=== PATIENT | male | born 1930 | race African-American/Black ===

== ENCOUNTER 2017-03-03 15:52 | Inpatient (IN) | payer MEDICARE, OTHER ==
[~2017-03-03] VITALS: Ht 170.2 cm; Wt 170.0 kg
[~2017-03-03 15:52] MED LIST: ATOR10TA23 PO; CENTSILV; OMEG1CAP97; [UNRECOGNIZED DRUG - OTHER]
[2017-03-03] MEDS ORDERED: TRAM-40 PO (22:54)
[2017-03-03] MEDS ORDERED: AMLO5TAB4 PO (22:58)
[2017-03-03 23:15] LABS: ANION GAP 9 (8-16); BLOOD UREA NITROGEN 12 mg/dl (7-20); CALCIUM 9.7 mg/dl (8.4-10.2); CARBON DIOXIDE 34 mmol/L (21-31); CHLORIDE 106 mmol/L (97-110); CREATININE 1.06 mg/dl (0.61-1.24); GLUCOSE 92 mg/dl (70-220); POTASSIUM 4.5 mmol/L (3.5-5.1); SODIUM 144 mmol/L (135-144); TROPONIN-I < 0.012 ng/ml (0.00-0.12)
[2017-03-03 23:42] LABS: INR 0.98; PARTIAL THROMBOPLASTIN TIME 27.9 Sec (25.0-35.0)
[2017-03-03 23:49] LABS: BASOPHILS % 0.3 % (0.0-2.0); EOSINOPHILS # 0.4 10^3/ul (0.0-0.5); EOSINOPHILS % 5.5 % (0.0-7.0); HEMATOCRIT 42.5 % (42.0-52.0); HEMOGLOBIN 14.2 g/dl (14.0-18.0); LYMPHOCYTES # 1.7 10^3/ul (0.8-2.9); LYMPHOCYTES % 27.1 % (15.0-51.0); MEAN CORPUSCULAR HEMOGLOBIN 31.6 pg (29.0-33.0); MEAN CORPUSCULAR HGB CONC 33.4 g/dl (32.0-37.0); MEAN CORPUSCULAR VOLUME 94.4 fl (82.0-101.0); MEAN PLATELET VOLUME 8.7 fl (7.4-10.4); MONOCYTE # 0.6 10^3/ul (0.3-0.9); MONOCYTES % 9.2 % (0.0-11.0); NEUTROPHIL # 3.6 10^3/ul (1.6-7.5); NEUTROPHILS % 57.6 % (39.0-77.0); PLATELET COUNT 239 10^3/UL (140-415); RED CELL DISTRIBUTION WIDTH 13.9 % (11.5-14.5); WHITE BLOOD COUNT 6.3 10^3/ul (4.8-10.8)
[2017-03-04] VITALS (12 sets, daily range): BP systolic 137–165; BP diastolic 60–74; PULSE 58–69; RESP 18–20; TEMP 98.2; Ht 170.2 cm; Wt 170.0 kg
--- NOTE | 2017-03-04 01:02 | ERD ---
ER Documentation Chief Complaint Chief Complaint LT SHOULDER PAIN , FALL FEW DAYS AGO HPI This is an 86-year-old male with left shoulder pain status post fall 3 days ago. Patient is having weakness in his left arm now. Also complains of difficulty ambulating. No nausea no vomiting no chills. No dysarthria. Does not remember whether or not he hit his head. No other current complaints. ROS All systems reviewed and are negative except as per history of present illness. Medications Home Meds Reported Medications Amlodipine Besylate* (Norvasc*) 5 Mg Tablet, 5 MG PO DAILY for HTN, TAB 03/03/17 Tramadol Hcl* (Ultram*) 50 Mg Tablet, 50 MG PO Q6H Y for PAIN, TAB 03/03/17 Fish Oil/Fortuna-3 Fatty Acids (Fish Oil 1,000 Mg Capsule) 1 Cap Capsule 11/04/10 Multivitamins/Minerals (Centrum Silver) 1 Tab Tab 11/04/10 Atorvastatin (Lipitor) 10 Mg Tablet, 10 MG PO QHS 11/03/10 Discontinued Reported Medications [Bp Med Unkn] No Conflict Check 11/03/10 Allergies Allergies: Coded Allergies: No Known Allergy (Verified , 05/11/15) PMhx/Soc History of Surgery: Yes (BACK SURGERY 20 YEARS AGO) Anesthesia Reaction: No Hx Neurological Disorder: No Hx Respiratory Disorders: No Hx Cardiac Disorders: Yes (HYPERTENSION , HIGH CHOLESTEROL) Hx Psychiatric Problems: No Hx Miscellaneous Medical Probl: Yes (prostate cancer w/prostatectomy) Hx Alcohol Use: No Hx Substance Use: No Hx Tobacco Use: No Physical Exam Vitals Vital Signs Date Time Temp Pulse Resp B/P Pulse Ox O2 Delivery O2 Flow Rate FiO2 03/03/17 15:54 98.7 72 18 135/62 98 Physical Exam Const: [] Head: Atraumatic Eyes: Normal Conjunctiva ENT: Normal External Ears, Nose and Mouth. Neck: Full range of motion..~ No meningismus. Resp: Clear to auscultation bilaterally Cardio: Regular rate and rhythm, no murmurs Abd: Soft, non tender, non distended. Normal bowel sounds Skin: No petechiae or rashes Back: No midline or flank tenderness Ext: No cyanosis, or edema Neur: Awake and alert Psych: Normal Mood and Affect Result Diagram: 03/03/17202903/03/172029 Results 24 hrs Laboratory Tests Test 03/03/17 20:30 White Blood Count 6.310^3/ul Red Blood Count 4.5010^6/ul Hemoglobin 14.2g/dl Hematocrit 42.5% Mean Corpuscular Volume 94.4fl Mean Corpuscular Hemoglobin 31.6pg Mean Corpuscular Hemoglobin Concent 33.4g/dl Red Cell Distribution Width 13.9% Platelet Count 56435^3/UL Mean Platelet Volume 8.7fl Neutrophils % 57.6% Lymphocytes % 27.1% Monocytes % 9.2% Eosinophils % 5.5% Basophils % 0.3% Nucleated Red Blood Cells % 0.0/100WBC Neutrophils # 3.610^3/ul Lymphocytes # 1.710^3/ul Monocytes # 0.610^3/ul Eosinophils # 0.410^3/ul Basophils # 0.010^3/ul Nucleated Red Blood Cells # 0.010^3/ul Prothrombin Time 13.0Sec Prothrombin Time Ratio 1.0 INR International Normalized Ratio 0.98 Activated Partial Thromboplast Time 27.9Sec Sodium Level 144mmol/L Potassium Level 4.5mmol/L Chloride Level 106mmol/L Carbon Dioxide Level 34mmol/L Anion Gap 9 Blood Urea Nitrogen 12mg/dl Creatinine 1.06mg/dl Glucose Level 92mg/dl Calcium Level 9.7mg/dl Troponin I < 0.012ng/ml Procedures/[facility] EKG: Rate/Rhythm: [Normal Sinus Rhythm] QRS, ST, T-waves: [No changes consistent w/ acute ischemia] Impression: [No evidence of ischemia or arrhythmia] Chest X-ray 1V Interpreted by me: Soft Tissue: No acute abnormalities Bones: No acute abnormalities Mediastinum/Cardiac Silhouette/Lungs: [No acute abnormalities] X-ray Shoulder 3V Interpreted by me: Bones: [No fracture] Joints: [No dislocation] Foreign body: [None] Medical decision-makin-year-old male with upper extremity weakness. This could be related to fall, however given the patient's generalized weakness associated in the same timeframe a subacute CVA cannot be completely ruled out at this time. Patient will be admitted for further evaluation and management to hospitalist. Departure Diagnosis: Primary Impression: Shoulder pain Chronicity: acute Laterality: unspecified laterality Qualified Code: M25.519 - Acute shoulder pain, unspecified laterality Additional Impression: Weakness Condition: Serious MOGHADAM,NAVNEET S. Mar 04, 2017 01:02
[2017-03-04] MEDS ORDERED: morphine 2 MG INJ IV PRN (03:30)
--- NOTE | 2017-03-04 07:39 | RADRPT ---
PROCEDURE: CT brain without contrast CLINICAL INDICATION: Injury. Weakness TECHNIQUE: A CT of the brain was performed utilizing axial sections from the skull base through the vertex without contrast. Sagittal and coronal images were also reformatted. One or more of the [facility] dose reduction techniques were used: Automated exposure control, adjustment of the mA and/or kV according to patient size, use of iterative reconstruction technique. The exam CTDIvol = 44.46 mGy and DLP = 720.23 mGy-cm. COMPARISON: None available FINDINGS: No acute intracranial hemorrhage is identified. There is no mass effect or midline shift. No extra-a xial fluid collection is seen. The ventricles and sulci are normal in size and configuration for the patient's provided age of 86 years consistent with advanced generalized atrophy. Low attenuation of the subcortical and periventricular white matter is nonspecific but likely chronic small vessel isc hemic sequela. Garcia-white differentiation is preserved with no findings to suggest an acute ischemic infarct. The fourth ventricle is midline and there is no density alteration within the maria d or cerebellum. The osseous structures are demineralized but otherwise unremarkable. The mastoid air cells and visua lized paranasal sinuses are clear. 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 Physician Silvio Date Time Electronically viewed and signed by Physician Silvio on 03/03/2017 22:10 /
--- NOTE | 2017-03-04 07:48 | RADRPT ---
AMENDMENT: 03/03/2017 10:18:02 PM Chau Saenz D.o Please disregard the below report mistakenly issued as the CT of the brain. PROCEDURE: CT cervical spine without contrast. CLINICAL INDICATION: Injury. Post traumatic neck pain TECHNIQUE: CT of the cervical spine without contrast was performed. Axial images were obtained th rough the cervical spine and reformatted at 2.0 mm slice thickness. Coronal and sagittal images were reformatted. One or more of the following dose reduction techniques were used: Automated exposure control, adjustment of the mA and/or kV according to patient size, use of iterative reconstruction t echnique. Exam CTDIvol = 22.14 mGy and DLP = 434.30 mGy-cm. COMPARISON: None available. FINDINGS: Vertebral bodies: Diffuse decreased mineralization cannot exclude osteopenia or osteoporosis. The lo rdosis is straightened. Narrowing of the predental space is present. 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 Rheumatoid arthritis is a differential diagnostic possibility. The C1 ring is intact . There is no evidence of vertebral body fracture. Central canal and cervical spinal cord: No abnormal density within the spinal cord is evident and no intraspinal masses are delineated. C2-3: Mild degenerative disc and with a small posterior osteophyte and disc complex. Severe right f acet arthropathy is present the left facet joint is normal. There is no evidence of posterior elemen t fracture. Uncovertebral hypertrophy contributes to moderate to severe right foraminal stenosis. Th e left foramen is patent. C3-4: Preservation of disc stature with a small posterior disc bulge but no evidence of central sonia nosis. Severe right facet arthropathy is present the left facet joint is normal. Uncovertebral hype rtrophy contributes to severe right foraminal stenosis. The left foramen is patent. There is no evid ence of posterior element fracture. C4-5: Mild degenerative disc narrowing with a posterior osteophyte and disc complex of approximatel y 5 mm causing mild central stenosis. Severe right and moderate left facet arthropathy is present. There is no evidence of posterior element fracture. Uncovertebral hypertrophy. Contribute to severe right and moderate left foraminal stenosis. C5-6: Severe degenerative disc narrowing to a posterior osteophyte and disc complex causing a most mild central canal stenosis. Severe right and moderate left facet arthropathy is present. There is no posterior element fracture. Calcification of the ligamentum flava are present. Uncovertebral appe ar to be causes severe right and moderate left foraminal stenosis. C6-7: Severe degenerative disc and a small osteophyte and disc complex causing no more than mild c entral canal stenosis. Mild bilateral facet arthropathy is present. There is no evidence of posteri or element fracture. Uncovertebral hypertrophy causes severe bilateral foraminal stenosis. C7-T1: The disk is within normal limits. Moderate to severe bilateral facet arthropathy is present. There is no evidence of posterior element fracture. The uncovertebral joints and foramina are unrem arkable. Non spine related findings: A thyroid goiter is present the right thyroid lobe larger than the left. Atherosclerotic calcification is present in the carotid bifurcations RPTAT:HJJR IMPRESSION: 1. No evidence of cervical spine fracture or subluxation. 2. Lordotic straightening possibly positioning but unable to exclude muscle spasm. 3. 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 4. Degenerative disc disease with osteophyte and disc complexes greatest at the C5-6 and C6-7 contr ibuting to mild central canal stenosis. 5. Multilevel facet arthropathy greatest on the right at C2-3 and C3-4 with uncovertebral hypertrop hy causing multilevel foraminal stenosis greatest at C5-6. 6. Thyroid goiter the right lobe larger than the left. 7. Atherosclerotic calcification of the carotid bifurcations. PROCEDURE: CT brain without contrast CLINICAL INDICATION: Injury. Weakness TECHNIQUE: A CT of the brain was performed utilizing axial sections from the skull base through th e vertex without contrast. Sagittal and coronal images were also reformatted. One or more of the fol lowing dose reduction techniques were used: Automated exposure control, adjustment of the mA and/or kV according to patient size, use of iterative reconstruction technique. The exam CTDIvol = 44.46 mGy and DLP = 720.23 mGy-cm. COMPARISON: None available FINDINGS: No acute intracranial hemorrhage is identified. There is no mass effect or midline shift. No extra -axial fluid collection is seen. The ventricles and sulci are normal in size and configuration for the patient's provided age of 86 years consistent with advanced generalized atrophy. Low attenuatio n of the subcortical and periventricular white matter is nonspecific but likely chronic small vessel ischemic sequela. Garcia-white differentiation is preserved with no findings to suggest an acute isc hemic infarct. The fourth ventricle is midline and there is no density alteration within the maria d or cerebellum. The osseous structures are demineralized but otherwise unremarkable. The mastoid air cells and visu alized paranasal sinuses are clear. 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 Physician Silvio Date Time Electronically viewed and signed by Miles Saenz Physician on 03/03/2017 22:18 /
--- NOTE | 2017-03-04 07:49 | RADRPT ---
PROCEDURE: XR left shoulder. CLINICAL INDICATION: Post traumatic left shoulder pain TECHNIQUE: Two views of the left shoulder were performed. COMPARISON: Left humerus x-ray 03/03/2017 FINDINGS: There is normal mineralization and alignment. No fracture or osseous lesion is identified. Osteoarth rosis is present the acromioclavicular and glenohumeral joints with the degenerative irregularity of the superolateral humeral head The soft tissues are unremarkable. RPTAT:HJJR IMPRESSION: Osteoarthrosis without evidence of fracture dislocation involving the left shoulder. The scapula alex ears intact.. Physician Silvio Date Time Electronically viewed and signed by Physician Silvio on 03/03/2017 22:19 /
--- NOTE | 2017-03-04 07:51 | RADRPT ---
PROCEDURE: XR Right Shoulder. CLINICAL INDICATION: Right shoulder pain. TECHNIQUE: Three views. Frontal internal rotation, frontal external rotation, and scapular Y-view . COMPARISON: No prior study is available for comparison. FINDINGS: There is no fracture or dislocation. The soft tissues are normal. Articular surfaces are intact. There is no lytic or blastic lesion. There is no radiopaque foreign body. IMPRESSION: 1. Normal images of the right shoulder. RPTAT: QQ .Ezekiel Garland MD, MD Date Time Electronically viewed and signed by .Ezekiel Garland MD, MD on 03/04/2017 07:51 .R/
--- NOTE | 2017-03-04 07:51 | RADRPT ---
PROCEDURE: XR Chest. CLINICAL INDICATION: Chest pain. Left shoulder injury. Weakness TECHNIQUE: Portable AP semi - erect view of the chest was obtained. COMPARISON: None. FINDINGS: The cardiomediastinal silhouette is within upper normal limits. The lungs are clear. There is no e vidence for pleural effusion, pneumothorax or pulmonary vascular congestion. Degenerative spondylos is of the thoracic spine is noted. There is no evidence of acute osseous abnormality. RPTAT:HJJR IMPRESSION: No evidence for acute intrathoracic pathology. Physician Silvio Date Time Electronically viewed and signed by Physician Silvio on 03/03/2017 22:20 /
--- NOTE | 2017-03-04 07:51 | RADRPT ---
PROCEDURE: Left humerus x-ray CLINICAL INDICATION: Post traumatic left arm pain TECHNIQUE: AP and lateral views of the left humerus were obtained. COMPARISON: None FINDINGS: There is normal mineralization. No acute fracture or dislocation is seen. There is no significant soft tissue swelling. Mild degenerative change of the liver is present. The elbow joint is normally aligned. No radiopaque foreign body is evident. RPTAT:HJJR IMPRESSION: No acute abnormality of the left humerus. Physician Silvio Date Time Electronically viewed and signed by Physician Silvio on 03/03/2017 22:13 JR/
--- NOTE | 2017-03-04 07:56 | HP ---
Date/Time of Note Date/Time of Note DATE: 03/04/17 TIME: 07:44 Assessment/Plan VTE Prophylaxis VTE Prophylaxis Intervention: heparin Assessment/Plan Assessment/Plan ASSESSMENT 86-year-old male with a history of hypertension, dyslipidemia, arthritis, prostatectomy 20 years ago for elevated PSA, left foot drop, chronic back pain, back surgery who presented to the ER complaining of left shoulder pain and limited range of motion status post ground-level fall. PLAN Will obtain x-ray of his shoulder Pain management Physical therapy Ortho consult will be considered As far as left foot drop and his chronic back pain is concerned, he has an appointment with his orthopedic surgeon in less than 2 weeks for possible surgical intervention HPI/ROS Admit Date/Time Admit Date/Time Mar 04, 2017 at 00:44 Hx of Present Illness This is an 86-year-old male with a history of hypertension, dyslipidemia, arthritis, prostatectomy 20 years ago for elevated PSA, chronic back pain, back surgery who presented to the ER complaining of left shoulder pain. He said that he fell down 2 days ago and since then has been having progressively worsening left shoulder pain and decreased range of motion. Patient normally uses a walker as well as wheelchair. He said he was attempting to see when the chair moved resulting in him falling backwards landing on the left side/left shoulder. He denied hitting his head or loss of consciousness. He also denied chest pain, lightheadedness, palpitation prior to or after the fall. Patient states that he has a history of arthritis and "a torn something" of right shoulder resulting in limited range of motion. 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 He also stated 3 months ago he noticed left foot drop for which he said he was told he would need a back surgery. He has an appointment for this in about 3 weeks. PMH/Family/Social Social History Smoking Status: Never smoker Exam/Review of Systems Vital Signs Vitals Vital Signs Date Time Temp Pulse Resp B/P Pulse Ox O2 Delivery O2 Flow Rate FiO2 03/04/17 04:38 68 03/04/17 04:20 98.0 18 157/72 95 03/04/17 02:51 Room Air Intake and Output 03/03/17 03/03/17 03/04/17 14:59 22:59 06:59 Intake Total 0 ml Output Total 200 ml Balance -200 ml Exam Constitutional: alert, oriented Head: atraumatic, normocephalic Eyes: EOMI, PERRL Respiratory: clear to auscultation, normal air movement Cardiovascular: nl pulses, regular rate and rhythm Gastrointestinal: non-tender, soft Extremities: other (There is tenderness and significant range of motion limitation of left shoulder. There is also range of motion limitation of the right shoulder as well. No obvious deformity of both shoulders) Labs Result Diagram: 03/03/17202903/03/172029 Medications Medications Current Medications Amlodipine Besylate (Norvasc) 5 mg DAILY PO ; Start 03/04/17 at 09:00 Atorvastatin Calcium (Lipitor) 10 mg HS PO ; Start 03/04/17 at 21:00 Fish Oil (Fish Oil) 1,000 mg BID PO ; Start 03/04/17 at 09:00 Multivitamins Therapeutic (Theragran) 1 tab DAILY PO ; Start 03/04/17 at 09:00 Tramadol HCl (Ultram) 50 mg Q6H PRN PO PAIN LEVEL 1-5; Start 03/04/17 at 03:30 Morphine Sulfate (morphine) 2 mg Q4H PRN IV PAIN LEVEL 6-10; Start 03/04/17 at 03:30 Heparin Sodium (Porcine) (Heparin (5000 Units/0.5 ml)) 5,000 unit ONCE ONCE SC ; Start 03/04/17 at 09:00; Stop 03/04/17 at 09:01 Aspirin (Halfprin) 81 mg DAILY PO ; Start 03/04/17 at 09:00 NAVNEET MULLINS MD Mar 04, 2017 07:54
--- NOTE | 2017-03-04 08:25 | RADRPT ---
PROCEDURE: XR Left Shoulder. CLINICAL INDICATION: Left shoulder pain. TECHNIQUE: Three views. Frontal internal rotation, frontal external rotation, and scapular Y-view . COMPARISON: No prior study is available for comparison. FINDINGS: There is no fracture or dislocation. The soft tissues are normal. Articular surfaces are intact. There is no lytic or blastic lesion. There is no radiopaque foreign body. IMPRESSION: 1. Normal images of the left shoulder. RPTAT: QQ .Ezekiel Garland MD, MD Date Time Electronically viewed and signed by .Ezekiel Garland MD, MD on 03/04/2017 07:50 .R/
--- NOTE | 2017-03-04 08:33 | RADRPT ---
PROCEDURE: US Carotids. CLINICAL INDICATION: bruit , left sided weakness TECHNIQUE: Multiple sonographic of the carotid bifurcation region and vertebral arteries were obta ined utilizing kramer scale, duplex and color-flow imaging. The images were reviewed on a PACS worksta tion. COMPARISON: No prior studies are available for comparison. FINDINGS: Evaluation of the right carotid bifurcation region reveals mild calcific atherosclerotic disease. Evaluation of the left carotid bifurcation region reveals mild calcific atherosclerotic disease. There is antegrade flow within the vertebral arteries bilaterally. RIGHT CAROTID MEASUREMENTS: Common Carotid Kmeuru22.5 (cm/sec) Internal Carotid Artery - [id number] (cm/sec) Internal Carotid Artery - mid47.9 (cm/sec) Internal Carotid Artery - .8 (cm/sec) Internal Carotid/Common Carotid1.64 LEFT CAROTID MEASUREMENTS: Common Carotid Lvfhzc93 (cm/sec) Internal Carotid Artery - lsywiafi72.1 (cm/sec) Internal Carotid Artery - mid32.4 (cm/sec) Internal Carotid Artery - mvipdn43.5 (cm/sec) Internal Carotid/Common Carotid0.6 RPTAT: AA IMPRESSION: No evidence for hemodynamically significant stenosis in the bilateral internal carotid arteries - va lidated velocity measurements with angiographic measurements, velocity criteria are extrapolated fro m diameter data as defined by the Society of Radiologists in Ultrasound Consensus Conference Radiolo gy 2003; 229;340-346. This study does indirectly reference the measurement of the distal ICA diamet er as the denominator for stenosis measurement. Normal antegrade flow in the vertebral arteries bilaterally. .Troy Garzon MD, MD Date Time Electronically viewed and signed by .Troy Garzon MD, on 03/04/2017 08:33 .S/
[2017-03-04 08:52] LABS: BASOPHIL # 0.1 10^3/ul (0.0-0.1); BASOPHILS % 0.9 % (0.0-2.0); EOSINOPHILS # 0.3 10^3/ul (0.0-0.5); EOSINOPHILS % 6.1 % (0.0-7.0); HEMATOCRIT 41.3 % (42.0-52.0); HEMOGLOBIN 13.7 g/dl (14.0-18.0); LYMPHOCYTES # 1.2 10^3/ul (0.8-2.9); MEAN CORPUSCULAR HGB CONC 33.2 g/dl (32.0-37.0); MEAN CORPUSCULAR VOLUME 93.4 fl (82.0-101.0); MEAN PLATELET VOLUME 8.7 fl (7.4-10.4); MONOCYTE # 0.5 10^3/ul (0.3-0.9); NEUTROPHIL # 3.6 10^3/ul (1.6-7.5); NEUTROPHILS % 63.8 % (39.0-77.0); PLATELET COUNT 223 10^3/UL (140-415); RED BLOOD COUNT 4.42 10^6/ul (4.70-6.10); RED CELL DISTRIBUTION WIDTH 13.8 % (11.5-14.5); WHITE BLOOD COUNT 5.6 10^3/ul (4.8-10.8)
[2017-03-04] MEDS: FISH OIL 1,000 MG CAP PO SCH ×2 (08:54→20:57)
[2017-03-04] MEDS: AMLODIPINE 5 MG TAB PO SCH (08:54)
[2017-03-04] MEDS: MULTIVITAMINS THERAPEUTIC TAB PO SCH (08:54)
[2017-03-04] MEDS: ASPIRIN (EC) 81 MG TAB PO SCH (08:54)
[2017-03-04] MEDS ORDERED: HEPARIN 5,000 UNIT/0.5 ML VIAL SC ONE (09:00)
[2017-03-04 09:20] LABS: ALBUMIN/GLOBULIN RATIO 1.25; CHOL/HDL RATIO 4.1 RATIO; POTASSIUM 3.6 mmol/L (3.5-5.1)
[2017-03-04 09:21] LABS: ALBUMIN 3.4 g/dl (3.3-4.9); BILIRUBIN,INDIRECT 0.7 mg/dl (0-1.1); BILIRUBIN,TOTAL 0.7 mg/dl (0.2-1.3); CREATININE 0.96 mg/dl (0.61-1.24); MAGNESIUM 1.9 mg/dl (1.7-2.5); PHOSPHORUS 3.9 mg/dl (2.5-4.9); TOTAL PROTEIN 6.1 g/dl (6.1-8.1)
--- NOTE | 2017-03-04 10:13 | PN ---
Date/Time of Note Date/Time of Note DATE: 03/04/17 TIME: 10:05 Assessment/Plan VTE Prophylaxis VTE Prophylaxis Intervention: anti-embolic stocking Lines/Catheters IV Catheter Type (from Nrsg): Saline Lock Subjective 24 Hr Interval Summary Free Text/Dictation 86 yr old man very well known to me admitted for pain and dpoor rom left shoulder after fall two days ago. no fracture seen. no evidence of carotid disease, no acute presales senior specialist disease. cxr normal , labs ok other problems lumbar disc disease with radiculopathy and left foot drop, for lumbar surgery later this month by dr milligan hx of hbp, elevated lipids, all under control with meds remote hx ca prostate treated with rt, now with chemical recurrence without evidence of mets has been working dfup until foot drop and ambulatory issues this past month on exam, alert, fluent, oriented times three exam unremarkable except for pain and poor rom left shoulder, some similar issues on the right, though less so left foot drop moves all four imp fall, and fall risk...son has taken leave from work to help out, but pt walker or wc dependent with foot drop and unsteadyness now with painful frozen shoulder left more than right following fall on the left plan for pt and dot lets get a ct of the left shoulder notifyu ortho of admit Musculoskeletal: restricted range of motion Neurologic: other (left foot drop) Exam/Review of Systems Vital Signs Vitals Vital Signs Date Time Temp Pulse Resp B/P Pulse Ox O2 Delivery O2 Flow Rate FiO2 03/04/17 08:17 58 03/04/17 07:44 98.0 18 147/71 96 03/04/17 02:51 Room Air Intake and Output 03/03/17 03/03/17 03/04/17 15:00 23:00 07:00 Intake Total 0 ml Output Total 200 ml Balance -200 ml Results Result Diagram: 03/04/17 0830 03/04/17 0828 Results 24 hrs Laboratory Tests Test 03/03/17 20:30 03/04/17 08:28 03/04/17 08:30 White Blood Count 6.3 5.6 Red Blood Count 4.50 L 4.42 L Hemoglobin 14.2 13.7 L Hematocrit 42.5 41.3 L Mean Corpuscular Volume 94.4 93.4 Mean Corpuscular Hemoglobin 31.6 31.0 Mean Corpuscular Hemoglobin Concent 33.4 33.2 Red Cell Distribution Width 13.9 13.8 Platelet Count 239 223 Mean Platelet Volume 8.7 8.7 Neutrophils % 57.6 63.8 Lymphocytes % 27.1 21.0 Monocytes % 9.2 8.0 Eosinophils % 5.5 6.1 Basophils % 0.3 0.9 Nucleated Red Blood Cells % 0.0 0.0 Neutrophils # 3.6 3.6 Lymphocytes # 1.7 1.2 Monocytes # 0.6 0.5 Eosinophils # 0.4 0.3 Basophils # 0.0 0.1 Nucleated Red Blood Cells # 0.0 0.0 Prothrombin Time 13.0 Prothrombin Time Ratio 1.0 INR International Normalized Ratio 0.98 Activated Partial Thromboplast Time 27.9 Sodium Level 144 141 Potassium Level 4.5 3.6 Chloride Level 106 105 Carbon Dioxide Level 34 H 29 Anion Gap 9 11 Blood Urea Nitrogen 12 10 Creatinine 1.06 0.96 Glucose Level 92 83 Calcium Level 9.7 9.0 Troponin I < 0.012 0.012 Hemoglobin A1c 5.4 Phosphorus Level 3.9 Magnesium Level 1.9 Total Bilirubin 0.7 Direct Bilirubin 0.00 Indirect Bilirubin 0.7 Aspartate Amino Transf (AST/SGOT) 26 Alanine Aminotransferase (ALT/SGPT) 32 Alkaline Phosphatase 74 Total Protein 6.1 Albumin 3.4 Globulin 2.70 Albumin/Globulin Ratio 1.25 Triglycerides Level 60 Cholesterol Level 229 H LDL Cholesterol, Calculated 162 HDL Cholesterol 55 Cholesterol/HDL Ratio 4.1 Medications Medications Current Medications Amlodipine Besylate (Norvasc) 5 mg DAILY PO Last administered on 03/04/17 08: 54; Admin Dose 5 MG; Start 03/04/17 at 09:00 Atorvastatin Calcium (Lipitor) 10 mg HS PO ; Start 03/04/17 at 21:00 Fish Oil (Fish Oil) 1,000 mg BID PO Last administered on 03/04/17 08:54; Admin Dose 1,000 MG; Start 03/04/17 at 09:00 Multivitamins Therapeutic (Theragran) 1 tab DAILY PO Last administered on 08:54; Admin Dose 1 TAB; Start 03/04/17 at 09:00 Tramadol HCl (Ultram) 50 mg Q6H PRN PO PAIN LEVEL 1-5; Start 03/04/17 at 03:30 Morphine Sulfate (morphine) 2 mg Q4H PRN IV PAIN LEVEL 6-10; Start 03/04/17 at 03:30 Aspirin (Halfprin) 81 mg DAILY PO Last administered on 03/04/17t 08:54; Admin Dose 81 MG; Start 03/04/17 at 09:00 EVERTON MCARTHUR MD Mar 04, 2017 10:13
[2017-03-04] MEDS ORDERED: ACETAMINOPHEN 325 MG TAB PO PRN (10:30)
--- NOTE | 2017-03-04 12:30 | CONS ---
DATE OF ADMISSION: 03/04/2017 DATE OF CONSULTATION: 03/04/2017 REQUESTING PHYSICIAN: Alexey Hays MD. TYPE OF CONSULTATION: Orthopedic. CHIEF COMPLAINT: The patient is seen in consultation at the request of Dr. Hays for evaluation and advice regarding left shoulder pain with history of back issues. HISTORY OF PRESENT INJURY: This is an 86-year-old gentleman who appeared to have mechanical fall a couple days ago. He has significant medical history as outlined below. He is reporting significant weakness in the left shoulder. He does have a foot drop, which was present prior to the fall. I w as asked to evaluate him due to the discomfort. He has inability to abduct his left shoulder. PAST MEDICAL HISTORY: Arthritis, high cholesterol, back trouble, possible history of prostate cance r. MEDICATIONS: 1. Amlodipine. 2. Atorvastatin. 3. Fish oil. 4. Vitamins. 5. Morphine. 6. Heparin. 7. Aspirin. ALLERGIES: NONE. PAST SURGICAL HISTORY: Lumbar decompression. SOCIAL HISTORY: The patient is retired, , nonsmoker. He moderately drinks. He lives alone. PHYSICAL EXAMINATION: GENERAL: A pleasant, elderly appearing gentleman standing 5 feet 7 inches tall, weighing 170 pounds . He is alert and oriented. HEENT: Extraocular movements are intact. Pupils are equal. LUNGS: He has no respiratory insufficiency. BACK: There are skin lesions seen on the left shoulder. He has a known left-sided foot drop with 0 /5 strength in the tibialis anterior and EHL. MUSCULOSKELETAL: He is unable to abduct the left shoulder but his biceps and triceps appear to be i ntact. IMAGING STUDIES: I reviewed x-rays of the left and the right shoulder as well as the neck. The lef t shoulder shows lytic changes. There could be a greater tuberosity fracture versus a rotator cuff tear. DIAGNOSES: 1. Lumbar spinal stenosis. 2. Chronic left foot drop. 3. Rule out left shoulder fracture versus rotator cuff tear. PLAN: This is an 86-year-old gentleman who presented to the emergency room after mechanical fall. He complained of left shoulder discomfort and inability to abduct his left shoulder. I am concerned he either fractured the greater tuberosity or had a traumatic rotator cuff rupture. I have recomme nded he undergo an MRI of the left shoulder and if positive, he will need to see a shoulder speciali st. If the MRI is negative, then this could be a traction injury from the neck and he would need an MRI of the cervical spine, but currently, the patient does report much in the way of neck pain. He has had imaging studies of the neck which included a cervical CT scan which showed no significant a cute abnormalities other than disk degeneration. There may be mild to moderate stenosis as well. I will review the MRI and speak with Dr. Hays once it is done. With regards to the lumbar spine, he was planning to undergo surgery with the undersigned, but we may need to wait for his shoulder to h eal prior to proceeding with spinal surgery. The patient understands the discussion today and he was seen with his son and all questions were ans wered. Dictated By: TIFFANY CHAUHAN/HI Conf#: [id number] DID#: [id number]
[2017-03-04] MEDS: ATORVASTATIN 10 MG TAB PO SCH (20:57)
[2017-03-05 02:31] VITALS: BP 140/62; RESP 18
[2017-03-05 07:30] VITALS: BP 143/67; RESP 18
[2017-03-05] MEDS: ASPIRIN (EC) 81 MG TAB PO SCH (09:01)
[2017-03-05] MEDS: FISH OIL 1,000 MG CAP PO SCH ×2 (09:01→21:01)
[2017-03-05] MEDS: MULTIVITAMINS THERAPEUTIC TAB PO SCH (09:01)
[2017-03-05] MEDS: AMLODIPINE 5 MG TAB PO SCH (09:01)
--- NOTE | 2017-03-05 09:32 | RADRPT ---
PROCEDURE: CT left shoulder without contrast. CLINICAL INDICATION: Fall with pain and poor loss range of motion. TECHNIQUE: CT scan of the left shoulder was performed on a multi -slice scanner. No IV contrast w as administered. Coronal and sagittal reformatted images were obtained from the axial source image s. The total exam DLP equals 666 mGy-cm. The CDTI volume was 36 mGy. Images were reviewed on a high- resolution PACS workstation. One or more of the following dose reduction techniques were used: Automated exposure control Adjustment of the mA and/or kV according to patient size. Use of iterative reconstruction technique. COMPARISON: Same day radiographs and radiographs from 03/03/2017 FINDINGS: There is no acute fracture or dislocation. There is mild joint space narrowing of the glenohumeral joint with osseous spurring. A small to mode rate joint effusion is present. There is also fluid within the superior subscapularis recess. There is a small focus of gas along the anterior inferior glenoid. There is osseous spurring along the lesser and greater tuberosities of the humeral head. There is moderate joint space narrowing of the acromioclavicular joint with osseous spurring. There is a type 2 acromion with slight lateral downsloping. There is mild fatty atrophy of the supraspinatus and infraspinatus muscles. Remaining muscles around the shoulder are unremarkable. The visualized left upper ribs are intact. There is mild bibasilar atelectasis. Atherosclerotic calcifications are visualized within the coronary arteries. RPTAT: ZZ IMPRESSION: 1. No acute fracture. 2. Moderate osteoarthrosis of the acromioclavicular joint. 3. Mild to moderate osteoarthrosis of the glenohumeral joint. 4. Mild fatty atrophy of the supraspinatus and infraspinatus muscles. This can be seen with rotator cuff tendinopathy/rotator cuff tear in which a follow-up MRI may be obtained for additional evaluati on. .Lata Jc MD, Date Time Electronically viewed and signed by .Lata Jc MD, on 03/05/2017 09:31 .T/
--- NOTE | 2017-03-05 10:02 | RADRPT ---
PROCEDURE: MRI OF THE LEFT SHOULDER CLINICAL INDICATION: Fall. Evaluate for fracture versus rotator cuff tear. Left shoulder. TECHNIQUE: Multiple MR pulse sequences in multiple planes were obtained. Images were interpreted o n a high resolution PACS system. COMPARISON: CT EXTREMITY 03/04/2017 FINDINGS: Osseous acromion outlet: The acromion is type 2. Coronal images demonstrate mild lateral downsloping . Moderate AC joint arthrosis.. Rotator Cuff: There is a full-thickness, near full width tear of the supraspinatus tendon with retra ction to the glenoid margin and a full-thickness, near full width tear of the infraspinatus tendon. Some of the anterior supraspinatus fibers are still attached and some of the posterior infraspinatus fibers are attached as well. There is partial thickness tearing at the upper subscapularis footprin t. Mild to mild fatty atrophy seen at the supraspinatus and infraspinatus muscle bellies. There is i ntense edema at the infraspinatus and supraspinatus muscle bellies representing either a recent tear or acute on chronic tear. Labral and capsular structures: There is no bony Bankart lesion. There is fraying and degeneration o f the posterior labrum without a fluid-filled tear. There is a capsular sprain without nadeem avulsio n. Biceps tendon and anchor: The long head biceps tendon demonstrates moderate tendinosis slight more p ronounced intra-articularly. The anchor is mildly degenerated, without rupture. Osseous structures: Mild joint space loss and chondral loss seen at the glenohumeral margin with mar ginal osteophyte formation. There is no acute fracture or osteonecrosis. Other findings: There is no amount of edema at the posterior component of the deltoid either from in flammation of the rotator cuff tear or strain. IMPRESSION: 1. Full-thickness, near full width tear of the infraspinatus and supraspinatus tendons with retract ion to the glenoid margins. This likely represents either an acute tear or acute on chronic tear. 2. Marked subacromial/subdeltoid bursitis and inflammation. 3. Mild glenohumeral joint arthrosis. 4. Moderate intrarticular biceps tendinosis versus strain. Low grade intrasubstance tearing cannot be excluded. No full-thickness rupture is seen. 5. No acute fracture. RPTAT: PP .Arun Tomlin MD, MD Date Time Electronically viewed and signed by .Arun Tomlin MD, MD on 03/05/2017 10:02 .d/
[2017-03-05] MEDS: traMADol 50 MG TAB PO PRN (10:34)
--- NOTE | 2017-03-05 11:50 | PN ---
Date/Time of Note Date/Time of Note DATE: 03/05/17 TIME: 11:49 Assessment/Plan Lines/Catheters IV Catheter Type (from Nrs): Peripheral IV Assessment/Plan Assessment/Plan MRI revealed: 1. Full-thickness, near full width tear of the infraspinatus and supraspinatus tendons with retraction to the glenoid margins. This likely represents either an acute tear or acute on chronic tear. 2. Marked subacromial/subdeltoid bursitis and inflammation. 3. Mild glenohumeral joint arthrosis. 4. Moderate intrarticular biceps tendinosis versus strain. Low grade intrasubstance tearing cannot be excluded. No full-thickness rupture is seen. 5. No acute fracture. I recommend that the patient be seen by a shoulder specialist. I will defer to Dr. Hays to request the consult but I would be happy to assist if asked. Subjective 24 Hr Interval Summary left shoulder weakness Exam/Review of Systems Vital Signs Vitals Vital Signs Date Time Temp Pulse Resp B/P Pulse Ox O2 Delivery O2 Flow Rate FiO2 03/05/17 07:30 98.5 71 18 143/67 95 03/04/17 15:26 Room Air Intake and Output 03/04/17 03/04/17 03/05/17 15:00 23:00 07:00 Intake Total 850 ml 500 ml Output Total 200 ml 850 ml Balance 650 ml -350 ml Exam Free Text/Dictation left shoulder weakness Results Result Diagram: 03/04/17 0830 03/04/17 0828 TIFFANY RUIZ MD Mar 05, 2017 11:50
--- NOTE | 2017-03-05 13:05 | PN ---
Date/Time of Note Date/Time of Note DATE: 03/05/17 TIME: 13:02 Assessment/Plan VTE Prophylaxis VTE Prophylaxis Intervention: anti-embolic stocking Lines/Catheters IV Catheter Type (from Nrsg): Peripheral IV Subjective 24 Hr Interval Summary Free Text/Dictation as noted by dr milligan, mri shows comple rotator cuff tear. explained to pt that he will need surgery. i will coordinate with dr tovar to have one of the scoi mds see him and hopefully get the surgery done. discussed with patient and son at bedside to cont with pt as able alert, lungs clear, heart rate ok no change left leg plan ortho consult re shoulder Musculoskeletal: back pain, bone/joint pain, neck pain, no complaints, other, restricted range of motion, swelling Exam/Review of Systems Vital Signs Vitals Vital Signs Date Time Temp Pulse Resp B/P Pulse Ox O2 Delivery O2 Flow Rate FiO2 03/05/17 07:30 98.5 71 18 143/67 95 03/04/17 15:26 Room Air Intake and Output 03/04/17 03/04/17 03/05/17 15:00 23:00 07:00 Intake Total 850 ml 500 ml Output Total 200 ml 850 ml Balance 650 ml -350 ml Results Result Diagram: 03/04/17 0830 03/04/17 0828 Medications Medications Current Medications Amlodipine Besylate (Norvasc) 5 mg DAILY PO Last administered on 03/05/17 09: 01; Admin Dose 5 MG; Start 03/04/17 at 09:00 Atorvastatin Calcium (Lipitor) 10 mg HS PO Last administered on 03/04/17 20:57 ; Admin Dose 10 MG; Start 03/04/17 at 21:00 Fish Oil (Fish Oil) 1,000 mg BID PO Last administered on 03/05/17 09:01; Admin Dose 1,000 MG; Start 03/04/17 at 09:00 Multivitamins Therapeutic (Theragran) 1 tab DAILY PO Last administered on 09:01; Admin Dose 1 TAB; Start 03/04/17 at 09:00 Tramadol HCl (Ultram) 50 mg Q6H PRN PO PAIN LEVEL 1-5 Last administered on 03/05 10:34; Admin Dose 50 MG; Start 03/04/17 at 03:30 Aspirin (Halfprin) 81 mg DAILY PO Last administered on 03/05/17 09:01; Admin Dose 81 MG; Start 03/04/17 at 09:00 Acetaminophen (Tylenol Tab) 325 mg Q6H PRN PO PAIN AND OR ELEVATED TEMP; Start 03/04/17 at 10:30 EVERTON MCARTHUR MD Mar 05, 2017 13:05
[2017-03-05 14:41] VITALS: BP 130/63; RESP 18
[2017-03-05 20:20] VITALS: BP 131/63; RESP 18
[2017-03-05] MEDS: ATORVASTATIN 10 MG TAB PO SCH (21:01)
[2017-03-06 02:05] VITALS: BP 128/66; RESP 18
--- NOTE | 2017-03-06 08:06 | PN ---
Date/Time of Note Date/Time of Note DATE: 03/06/17 TIME: 08:03 Assessment/Plan VTE Prophylaxis VTE Prophylaxis Intervention: anti-embolic stocking Lines/Catheters IV Catheter Type (from Nrsg): Saline Lock Subjective 24 Hr Interval Summary Free Text/Dictation rct, asked dr ansari to see him today. will order ekg for possible preop, all labs stable. arm still sore and difficult for him to get around without assist left foot drop, lumbar disc disease, stable alert, lungs clear, hr dok, no edema, vs ok imp: stable, await decision re left shoulder Musculoskeletal: bone/joint pain, restricted range of motion Exam/Review of Systems Vital Signs Vitals Vital Signs Date Time Temp Pulse Resp B/P Pulse Ox O2 Delivery O2 Flow Rate FiO2 03/06/17 02:05 98.2 72 18 128/66 98 03/04/17 15:26 Room Air Intake and Output 03/05/17 03/05/17 03/06/17 15:00 23:00 07:00 Intake Total 800 ml 420 ml Output Total 600 ml 600 ml Balance 200 ml -180 ml Results Result Diagram: 03/04/17 0830 03/04/17 0828 Medications Medications Current Medications Amlodipine Besylate (Norvasc) 5 mg DAILY PO Last administered on 03/05/17 09: 01; Admin Dose 5 MG; Start 03/04/17 at 09:00 Atorvastatin Calcium (Lipitor) 10 mg HS PO Last administered on 03/05/17 21:01 ; Admin Dose 10 MG; Start 03/04/17 at 21:00 Fish Oil (Fish Oil) 1,000 mg BID PO Last administered on 03/05/17 21:01; Admin Dose 1,000 MG; Start 03/04/17 at 09:00 Multivitamins Therapeutic (Theragran) 1 tab DAILY PO Last administered on 09:01; Admin Dose 1 TAB; Start 03/04/17 at 09:00 Tramadol HCl (Ultram) 50 mg Q6H PRN PO PAIN LEVEL 1-5 Last administered on 03/05 10:34; Admin Dose 50 MG; Start 03/04/17 at 03:30 Aspirin (Halfprin) 81 mg DAILY PO Last administered on 03/05/17 09:01; Admin Dose 81 MG; Start 03/04/17 at 09:00 Acetaminophen (Tylenol Tab) 325 mg Q6H PRN PO PAIN AND OR ELEVATED TEMP; Start 03/04/17 at 10:30 EVERTON MCARTHUR MD Mar 06, 2017 08:05
[2017-03-06 08:13] VITALS: BP 146/64; RESP 18
[2017-03-06] MEDS: MULTIVITAMINS THERAPEUTIC TAB PO SCH (09:05)
[2017-03-06] MEDS: ASPIRIN (EC) 81 MG TAB PO SCH ×2 (09:05→15:36)
[2017-03-06] MEDS: AMLODIPINE 5 MG TAB PO SCH (09:05)
[2017-03-06] MEDS: FISH OIL 1,000 MG CAP PO SCH ×2 (09:05→20:31)
[2017-03-06] MEDS: traMADol 50 MG TAB PO PRN ×2 (11:05→20:32)
[2017-03-06 14:00] VITALS: BP 135/60; RESP 18
--- NOTE | 2017-03-06 16:19 | CONS ---
Date/Time of Note Date/Time of Note DATE: 03/06/17 TIME: 16:11 Assessment/Plan Assessment/Plan Additional Assessment/Plan Assessment: 86-year-old gentleman with bilateral rotator cuff tear arthropathy that appears to have been aggravated significantly by his fall on the left side. Plan: My recommendation at this point would be to attempt to improve his situation through a course of physical therapy 3 times a week for the next 4-6 weeks. I realized that he is scheduled for lumbar surgery and I think that would be appropriate to go ahead and proceed with that. In the short-term, if he has continued pain, consideration could be made for "subacromial cortisone injections bilaterally in an attempt to get him through his lumbar surgery. Ultimately, he may likely require bilateral shoulder replacement operations in the form of reverse total shoulder replacements for ultimate improvement of his situation. Consultation Date/Type/Reason Admit Date/Time Mar 04, 2017 at 00:44 Date of Consultation: Mar 06, 2017 Reason for Consultation Acute left shoulder pain with chronic right shoulder pain Hx of Present Illness The patient is an 86-year-old right-hand dominant gentleman who has a history of a fall several days ago sustaining what appears to have been an axial load to the left shoulder. The reason for his fall is the fact that he has a significant foot drop as a result of ongoing back issues. He is scheduled for lumbar surgery on March [address] Barnett. As a result of his fall, he has noted an acute decrease in his active range of motion of his left shoulder. Prior to this, he did have some mild stiffness and achiness as well as significant weakness in the left shoulder. In addition , he has severe weakness and pain with passive and active range of motion in the right shoulder and that has been a chronic problem. Musculoskeletal: back pain, bone/joint pain, neck pain, no complaints, other, restricted range of motion, swelling Neurologic: other (left foot drop) Social History Smoking Status: Never smoker Exam/Review of Systems Vital Signs Vitals Vital Signs Date Time Temp Pulse Resp B/P Pulse Ox O2 Delivery O2 Flow Rate FiO2 03/06/17 08:13 98.4 71 18 146/64 95 03/04/17 15:26 Room Air Intake and Output 03/05/17 03/05/17 03/06/17 15:00 23:00 07:00 Intake Total 800 ml 420 ml Output Total 600 ml 600 ml Balance 200 ml -180 ml Exam Musculoskeletal: joint tenderness, muscle tone, muscle weakness, nl extremities to inspection, nl gait and stance, other, range of motion, spine non -tender, swelling Results Physical examination reveals a pleasant gentleman who was able to discuss his situation very clearly. Further physical examination of the bilateral upper extremities reveals that he is neurologically intact with respect to his motor function other than his rotator cuff. Specifically with regards to the left shoulder, his active range of motion is limited to only approximately 30 of forward flexion and abduction. His maximal external rotation is about 30. Passive range of motion is much better. There is severe crepitus both in the glenohumeral Joint as well as in the subacromial space with passive range of motion. There is an obvious biceps deformity consistent with a biceps disruption. There is no ecchymoses. He has diffuse anterior, and lateral tenderness. Examination of the right shoulder reveals that his active motion is also markedly limited to approximately 25% of normal with severe crepitus and subacromial as well as glenohumeral pain. There is diffuse pain throughout the shoulder. His skin is intact in the right shoulder and there are no ecchymoses either. Result Diagram: 03/04/1782903/04/17827 Imaging Free Text/Dictation Radiographs that were obtained on admission of the bilateral shoulders reveal that on the right shoulder he has a high riding humeral head with rotator cuff tear arthropathy changes that appear to be chronic in nature. The glenohumeral joint is also markedly limited in space. Radiographs of the left shoulder reveal that he also has some cuff arthropathy changes with significant sclerosis and greater tuberosity changes. The subacromial space is markedly diminished as well. He has severe acromioclavicular joint arthropathy. MRI that was obtained on admission of the left shoulder reveals what appears to be a massive rotator cuff tear with chronic retracted tissue. In addition, the biceps tendon is disrupted. Finally, there is severe chromic clavicular joint narrowing. Medications Medications Current Medications Amlodipine Besylate (Norvasc) 5 mg DAILY PO Last administered on 03/06/17 09: 05; Admin Dose 5 MG; Start 03/04/17 at 09:00 Atorvastatin Calcium (Lipitor) 10 mg HS PO Last administered on 03/05/17 21:01 ; Admin Dose 10 MG; Start 03/04/17 at 21:00 Fish Oil (Fish Oil) 1,000 mg BID PO Last administered on 03/06/17 09:05; Admin Dose 1,000 MG; Start 03/04/17 at 09:00 Multivitamins Therapeutic (Theragran) 1 tab DAILY PO Last administered on 09:05; Admin Dose 1 TAB; Start 03/04/17 at 09:00 Tramadol HCl (Ultram) 50 mg Q6H PRN PO PAIN LEVEL 1-5 Last administered on 03/06 11:05; Admin Dose 50 MG; Start 03/04/17 at 03:30 Aspirin (Halfprin) 81 mg DAILY PO Last administered on 03/06/17 15:36; Admin Dose 81 MG; Start 03/04/17 at 09:00 Acetaminophen (Tylenol Tab) 325 mg Q6H PRN PO PAIN AND OR ELEVATED TEMP; Start 03/04/17 at 10:30 FIGUEROA COOPER MD Mar 06, 2017 16:19
[2017-03-06 19:53] VITALS: BP 140/65; RESP 18
[2017-03-06] MEDS: ATORVASTATIN 10 MG TAB PO SCH (20:32)
[2017-03-07 02:20] VITALS: BP 156/62; RESP 18
[2017-03-07 07:52] VITALS: BP 143/65; RESP 18
[2017-03-07] MEDS: MULTIVITAMINS THERAPEUTIC TAB PO SCH (08:40)
[2017-03-07] MEDS: FISH OIL 1,000 MG CAP PO SCH ×2 (08:41→21:09)
[2017-03-07] MEDS: AMLODIPINE 5 MG TAB PO SCH (08:41)
[2017-03-07] MEDS: ASPIRIN (EC) 81 MG TAB PO SCH (08:41)
[2017-03-07] MEDS: traMADol 50 MG TAB PO PRN (08:44)
--- NOTE | 2017-03-07 13:44 | PN ---
Date/Time of Note Date/Time of Note DATE: 03/07/17 TIME: 13:40 Assessment/Plan VTE Prophylaxis VTE Prophylaxis Intervention: heparin Lines/Catheters IV Catheter Type (from Nrs): Saline Lock Urinary Cath still in place: No Assessment/Plan Problems: (1) Lumbar spinal stenosis Status: Chronic Comment: He is scheduled with Dr. Barnett for surgery. Surgery should proceed forward and will deal with his shoulders as recommended by Dr. Nicholson. Qualifiers: Neurogenic claudication status: with neurogenic claudication Qualified Code : M48.062 - Spinal stenosis of lumbar region with neurogenic claudication (2) Injury of left rotator cuff Status: Chronic Comment: Noted. Conservative care with physical therapy and possible steroid injection Qualifiers: Encounter type: initial encounter Qualified Code: S46.002A - Injury of left rotator cuff, initial encounter (3) Injury of right rotator cuff Status: Chronic Comment: Noted. Physical therapy Qualifiers: Encounter type: initial encounter Qualified Code: S46.001A - Injury of right rotator cuff, initial encounter (4) Essential hypertension Status: Chronic Comment: Adequate control (5) Hyperlipidemia Status: Chronic Comment: Adequate control on treatment Qualifiers: Hyperlipidemia type: pure hypercholesterolemia Qualified Code: E78.00 - Pure hypercholesterolemia (6) History of prostate cancer Onset Date: ~ 02/1996 Status: Chronic Comment: Noted in quiescent. Subjective 24 Hr Interval Summary Free Text/Dictation Patient reports that he still has a shoulder pain and some limitation of range of motion. Constitutional: no complaints (No fevers chills or sweats) Respiratory: no complaints Cardiovascular: no complaints Gastrointestinal: no complaints Genitourinary: no complaints Musculoskeletal: back pain, other (Bilateral shoulder pain right greater than left with limited range of motion) Exam/Review of Systems Vital Signs Vitals Vital Signs Date Time Temp Pulse Resp B/P Pulse Ox O2 Delivery O2 Flow Rate FiO2 03/07/17 07:52 98.7 68 18 143/65 97 03/04/17 15:26 Room Air Intake and Output 03/06/17 03/06/17 03/07/17 15:00 23:00 07:00 Intake Total 450 ml Output Total 900 ml Balance -450 ml Exam Constitutional: alert, oriented Neck: non-tender, supple Respiratory: clear to auscultation, normal air movement Cardiovascular: nl pulses, regular rate and rhythm Gastrointestinal: nl liver, spleen, non-tender, soft Results Result Diagram: 03/04/1730 03/04/17 0828 Medications Medications Current Medications Amlodipine Besylate (Norvasc) 5 mg DAILY PO Last administered on 03/07/17 08: 41; Admin Dose 5 MG; Start 03/04/17 at 09:00 Atorvastatin Calcium (Lipitor) 10 mg HS PO Last administered on 03/06/17 20:32 ; Admin Dose 10 MG; Start 03/04/17 at 21:00 Fish Oil (Fish Oil) 1,000 mg BID PO Last administered on 03/07/17 08:41; Admin Dose 1,000 MG; Start 03/04/17 at 09:00 Multivitamins Therapeutic (Theragran) 1 tab DAILY PO Last administered on 03/07 08:40; Admin Dose 1 TAB; Start 03/04/17 at 09:00 Tramadol HCl (Ultram) 50 mg Q6H PRN PO PAIN LEVEL 1-5 Last administered on 08:44; Admin Dose 50 MG; Start 03/04/17 at 03:30 Aspirin (Halfprin) 81 mg DAILY PO Last administered on 03/07/17 08:41; Admin Dose 81 MG; Start 03/04/17 at 09:00 Acetaminophen (Tylenol Tab) 325 mg Q6H PRN PO PAIN AND OR ELEVATED TEMP; Start 03/04/17 at 10:30 JOSETTE LANCASTER MD Mar 07, 2017 13:44
[2017-03-07] MEDS ORDERED: METHYLPREDNISOLONE ACET 80 MG/ML 1 ML IM ONE (14:00)
[2017-03-07 14:13] VITALS: BP 131/62; RESP 18
[2017-03-07 19:55] VITALS: BP 121/58; RESP 18
[2017-03-07] MEDS: ATORVASTATIN 10 MG TAB PO SCH (21:09)
[2017-03-08 02:40] VITALS: BP 151/66; RESP 18
[2017-03-08 07:38] VITALS: BP 151/68; RESP 18
[2017-03-08] MEDS: traMADol 50 MG TAB PO PRN ×2 (08:18→17:10)
[2017-03-08] MEDS: ASPIRIN (EC) 81 MG TAB PO SCH (08:18)
[2017-03-08] MEDS: MULTIVITAMINS THERAPEUTIC TAB PO SCH (08:18)
[2017-03-08] MEDS: AMLODIPINE 5 MG TAB PO SCH (08:18)
[2017-03-08] MEDS: FISH OIL 1,000 MG CAP PO SCH ×2 (08:18→21:20)
[2017-03-08] MEDS ORDERED: SENNA TAB PO ONE (11:30)
--- NOTE | 2017-03-08 16:38 | PN ---
Date/Time of Note Date/Time of Note DATE: 03/08/17 TIME: 16:31 Assessment/Plan VTE Prophylaxis VTE Prophylaxis Intervention: SCD's Lines/Catheters IV Catheter Type (from Nrsg): Peripheral IV Urinary Cath still in place: No Assessment/Plan Problems: (1) Weakness Status: Acute Comment: Combination of spine issues causing foot drop and bilateral shoulder issues leading to limited use of arms. Patient unsafe to go home alone. (2) Shoulder pain Status: Acute Comment: Bilateral rotator cuff tear causing upper extremity weakness. Recommended PT for 3 weaks prior to surgical intervention. Appreciate Dr. Nicholson input. Qualifiers: Chronicity: acute Laterality: unspecified laterality Qualified Code: M25.519 - Acute shoulder pain, unspecified laterality (3) Lumbar spinal stenosis Status: Chronic Comment: Awaiting surgery scheduled for Qualifiers: Neurogenic claudication status: with neurogenic claudication Qualified Code : M48.062 - Spinal stenosis of lumbar region with neurogenic claudication (4) Foot drop, left Status: Acute Comment: result of spinal issues. (5) Essential hypertension Status: Chronic Comment: Decent control (6) Hyperlipidemia Status: Chronic Comment: No issues Qualifiers: Hyperlipidemia type: pure hypercholesterolemia Qualified Code: E78.00 - Pure hypercholesterolemia (7) Constipation Status: Acute Comment: laxative ordered. enema if no BM with laxative. Subjective 24 Hr Interval Summary Free Text/Dictation Complain of constipation. Difficulty moving both upper extremities. Awaiting back surgery. Exam/Review of Systems Vital Signs Vitals Vital Signs Date Time Temp Pulse Resp B/P Pulse Ox O2 Delivery O2 Flow Rate FiO2 03/08/17 07:38 97.9 77 18 151/68 94 03/04/17 15:26 Room Air Intake and Output 03/07/17 03/07/17 03/08/17 15:00 23:00 07:00 Intake Total 600 ml 1100 ml Output Total 800 ml 1000 ml Balance -200 ml 100 ml Exam Family at bedside Constitutional: alert, oriented Head: normocephalic Eyes: EOMI, PERRL, nl conjunctiva Neck: supple Respiratory: clear to auscultation Cardiovascular: regular rate and rhythm Gastrointestinal: soft Musculoskeletal: nl extremities to inspection Extremities: normal pulses Neurological: other (foot drop) Results Result Diagram: 03/04/1730 03/04/17 0828 Medications Medications Current Medications Amlodipine Besylate (Norvasc) 5 mg DAILY PO Last administered on 03/08/17 08: 18; Admin Dose 5 MG; Start 03/04/17 at 09:00 Atorvastatin Calcium (Lipitor) 10 mg HS PO Last administered on 03/07/17 21: 09; Admin Dose 10 MG; Start 03/04/17 at 21:00 Fish Oil (Fish Oil) 1,000 mg BID PO Last administered on 03/08/17 08:18; Admin Dose 1,000 MG; Start 03/04/17 at 09:00 Multivitamins Therapeutic (Theragran) 1 tab DAILY PO Last administered on 03/08 08:18; Admin Dose 1 TAB; Start 03/04/17 at 09:00 Tramadol HCl (Ultram) 50 mg Q6H PRN PO PAIN LEVEL 1-5 Last administered on 08:18; Admin Dose 50 MG; Start 03/04/17 at 03:30 Aspirin (Halfprin) 81 mg DAILY PO Last administered on 03/08/17 08:18; Admin Dose 81 MG; Start 03/04/17 at 09:00 Acetaminophen (Tylenol Tab) 325 mg Q6H PRN PO PAIN AND OR ELEVATED TEMP; Start 03/04/17 at 10:30 Senna (Senokot) 2 tab DAILY PRN PO CONSTIPATION; Start 03/08/17 at 11:30 LOGAN BAE MD Mar 08, 2017 16:37
[2017-03-08 19:48] VITALS: BP 120/60; PULSE 82; RESP 18
[2017-03-08] MEDS: ATORVASTATIN 10 MG TAB PO SCH (21:20)
[2017-03-09 08:00] VITALS: BP 136/63; RESP 20
[2017-03-09] MEDS: MULTIVITAMINS THERAPEUTIC TAB PO SCH (08:37)
[2017-03-09] MEDS: AMLODIPINE 5 MG TAB PO SCH (08:37)
[2017-03-09] MEDS: FISH OIL 1,000 MG CAP PO SCH ×2 (08:37→21:12)
[2017-03-09] MEDS: ASPIRIN (EC) 81 MG TAB PO SCH (08:37)
[2017-03-09] MEDS: traMADol 50 MG TAB PO PRN ×2 (08:39→18:25)
[2017-03-09] MEDS: SENNA TAB PO PRN (08:40)
--- NOTE | 2017-03-09 12:24 | RADRPT ---
Vent Rate: 75 bpm RR Interval: 0 msec RI Interval: 166 msec QRS Duration: 88 msec QT Interval: 384 msec QTC Interval: 428 msec P-R-T [place]: 65 - -1 - 57 degrees Normal sinus rhythm possible Septal infarct , age undetermined Abnormal ECG No previous tracing available for comparison Electronically Signed By: Alan Vazquez [id number]
[2017-03-09 15:39] VITALS: BP 134/60; RESP 20
--- NOTE | 2017-03-09 19:34 | PN ---
Date/Time of Note Date/Time of Note DATE: 03/09/17 TIME: 13:35 Late entry Assessment/Plan VTE Prophylaxis VTE Prophylaxis Intervention: SCD's Lines/Catheters IV Catheter Type (from Nrsg): Saline Lock Central line still needed: No Urinary Cath still in place: No Assessment/Plan Problems: (1) Weakness Status: Acute (2) Lumbar spinal stenosis Status: Chronic Qualifiers: Neurogenic claudication status: with neurogenic claudication Qualified Code : M48.062 - Spinal stenosis of lumbar region with neurogenic claudication (3) Foot drop, left Status: Acute (4) Shoulder pain Status: Acute Qualifiers: Chronicity: acute Laterality: unspecified laterality Qualified Code: M25.519 - Acute shoulder pain, unspecified laterality (5) Constipation Status: Acute (6) Essential hypertension Status: Chronic (7) Hyperlipidemia Status: Chronic Qualifiers: Hyperlipidemia type: pure hypercholesterolemia Qualified Code: E78.00 - Pure hypercholesterolemia Assessment/Plan Patient scheduled for surgery 03/19/2017. Will obtain intial pre-op labs in AM. Clinically stable but unsafe to go home given bilateral shoulder rotator cuff tears and left foot drop. Will likely need transfer to rehab/snf while waiting surgery. Subjective 24 Hr Interval Summary Free Text/Dictation No new complaints today Exam/Review of Systems Vital Signs Vitals Vital Signs Date Time Temp Pulse Resp B/P Pulse Ox O2 Delivery O2 Flow Rate FiO2 03/09/17 15:39 98.4 77 20 134/60 96 03/08/17 19:48 Room Air Intake and Output 03/08/17 03/08/17 03/09/17 14:59 22:59 06:59 Intake Total 460 ml 1000 ml Output Total 500 ml 800 ml Balance -40 ml 200 ml Exam Family at bedside Constitutional: alert, oriented Neck: supple Respiratory: clear to auscultation Cardiovascular: regular rate and rhythm Gastrointestinal: soft Extremities: normal pulses Neurological: other (left foot drop) Medications Medications Current Medications Amlodipine Besylate (Norvasc) 5 mg DAILY PO Last administered on 03/09/17 08: 37; Admin Dose 5 MG; Start 03/04/17 at 09:00 Atorvastatin Calcium (Lipitor) 10 mg HS PO Last administered on 03/08/17 21: 20; Admin Dose 10 MG; Start 03/04/17 at 21:00 Fish Oil (Fish Oil) 1,000 mg BID PO Last administered on 03/09/17 08:37; Admin Dose 1,000 MG; Start 03/04/17 at 09:00 Multivitamins Therapeutic (Theragran) 1 tab DAILY PO Last administered on 03/09 08:37; Admin Dose 1 TAB; Start 03/04/17 at 09:00 Tramadol HCl (Ultram) 50 mg Q6H PRN PO PAIN LEVEL 1-5 Last administered on 18:25; Admin Dose 50 MG; Start 03/04/17 at 03:30 Aspirin (Halfprin) 81 mg DAILY PO Last administered on 03/09/17 08:37; Admin Dose 81 MG; Start 03/04/17 at 09:00 Acetaminophen (Tylenol Tab) 325 mg Q6H PRN PO PAIN AND OR ELEVATED TEMP; Start 03/04/17 at 10:30 Senna (Senokot) 2 tab DAILY PRN PO CONSTIPATION Last administered on 08:40; Admin Dose 2 TAB; Start 03/08/17 at 11:30 LOGAN BAE MD Mar 09, 2017 19:34
[2017-03-09 19:45] VITALS: BP 144/65; RESP 18
[2017-03-09] MEDS: ATORVASTATIN 10 MG TAB PO SCH (21:12)
[2017-03-10 02:41] VITALS: BP 145/67; RESP 18
[2017-03-10 02:59] LABS: ADD UMIC NO; UR ASCORBIC ACID NEGATIVE (NEGATIVE); UR BILIRUBIN (Dip) NEGATIVE (NEGATIVE); UR BLOOD (Dip) NEGATIVE (NEGATIVE); UR CLARITY CLEAR (CLEAR); UR COLOR YELLOW (YELLOW); UR GLUCOSE (Dip) NEGATIVE (NEGATIVE); UR KETONES (Dip) NEGATIVE (NEGATIVE); UR LEUKOCYTE ESTERASE (Dip) NEGATIVE Leu/ul (NEGATIVE); UR NITRITE (Dip) NEGATIVE (NEGATIVE); UR SPECIFIC GRAVITY (Dip) 1.013 (1.003-1.030); UR TOTAL PROTEIN (Dip) NEGATIVE (NEGATIVE); UR UROBILINOGEN (Dip) NEGATIVE (NEGATIVE)
[2017-03-10 06:12] LABS: BASOPHILS % 0.4 % (0.0-2.0); EOSINOPHILS # 0.3 10^3/ul (0.0-0.5); EOSINOPHILS % 3.3 % (0.0-7.0); HEMATOCRIT 42.4 % (42.0-52.0); LYMPHOCYTES # 1.4 10^3/ul (0.8-2.9); LYMPHOCYTES % 13.9 % (15.0-51.0); MEAN CORPUSCULAR HEMOGLOBIN 30.9 pg (29.0-33.0); MEAN CORPUSCULAR VOLUME 93.6 fl (82.0-101.0); MONOCYTE # 0.9 10^3/ul (0.3-0.9); MONOCYTES % 8.9 % (0.0-11.0); NEUTROPHIL # 7.1 10^3/ul (1.6-7.5); NEUTROPHILS % 73.3 % (39.0-77.0); PLATELET COUNT 293 10^3/UL (140-415); RED BLOOD COUNT 4.53 10^6/ul (4.70-6.10); RED CELL DISTRIBUTION WIDTH 13.2 % (11.5-14.5); WHITE BLOOD COUNT 9.8 10^3/ul (4.8-10.8)
[2017-03-10 06:24] LABS: INR 0.95; PROTIME 12.7 Sec (12.2-14.2)
[2017-03-10 06:25] LABS: PARTIAL THROMBOPLASTIN TIME 36.2 Sec (25.0-35.0)
[2017-03-10 06:28] LABS: ALBUMIN 3.7 g/dl (3.3-4.9); BILIRUBIN,INDIRECT 0.6 mg/dl (0-1.1); BILIRUBIN,TOTAL 0.6 mg/dl (0.2-1.3); CALCIUM 9.5 mg/dl (8.4-10.2); CREATININE 1.05 mg/dl (0.61-1.24); POTASSIUM 4.2 mmol/L (3.5-5.1); TOTAL PROTEIN 7.4 g/dl (6.1-8.1)
[2017-03-10 07:33] VITALS: BP 131/61; RESP 19
--- NOTE | 2017-03-10 08:52 | PN ---
Date/Time of Note Date/Time of Note DATE: 03/10/17 TIME: 08:48 Assessment/Plan VTE Prophylaxis VTE Prophylaxis Intervention: anti-embolic stocking Lines/Catheters IV Catheter Type (from Nrsg): Saline Lock Urinary Cath still in place: No Subjective 24 Hr Interval Summary Free Text/Dictation he is having some visual hallucinations willdc tramadol as possible cause will need to transition to aru or snf prior to proposed surgery as not yet safe to be at home with help eaisly reorients lungs clear hr ok vs ok, labs reviewed, stable plan as noted Musculoskeletal: bone/joint pain (shoulder pain poor rom) Neurologic: focal-weakness (left foot drop) Exam/Review of Systems Vital Signs Vitals Vital Signs Date Time Temp Pulse Resp B/P Pulse Ox O2 Delivery O2 Flow Rate FiO2 03/10/17 07:33 98.2 71 19 131/61 98 03/08/17 19:48 Room Air Intake and Output 03/09/17 03/09/17 03/10/17 14:59 22:59 06:59 Intake Total 480 ml 950 ml Output Total 650 ml 900 ml Balance -170 ml 50 ml Results Result Diagram: 03/10/17 0500 03/10/17 0500 Results 24 hrs Laboratory Tests Test 03/10/17 01:55 03/10/17 05:00 Urine Color YELLOW Urine Clarity CLEAR Urine pH 6.0 Urine Specific [place] 1.013 Urine Ketones NEGATIVE Urine Nitrite NEGATIVE Urine Bilirubin NEGATIVE Urine Urobilinogen NEGATIVE Urine Leukocyte Esterase NEGATIVE Urine Hemoglobin NEGATIVE Urine Glucose NEGATIVE Urine Total Protein NEGATIVE White Blood Count 9.8 # Red Blood Count 4.53 L Hemoglobin 14.0 Hematocrit 42.4 Mean Corpuscular Volume 93.6 Mean Corpuscular Hemoglobin 30.9 Mean Corpuscular Hemoglobin Concent 33.0 Red Cell Distribution Width 13.2 Platelet Count 293 # Mean Platelet Volume 9.0 Neutrophils % 73.3 Lymphocytes % 13.9 L Monocytes % 8.9 Eosinophils % 3.3 Basophils % 0.4 Nucleated Red Blood Cells % 0.0 Neutrophils # 7.1 Lymphocytes # 1.4 Monocytes # 0.9 Eosinophils # 0.3 Basophils # 0.0 Nucleated Red Blood Cells # 0.0 Prothrombin Time 12.7 Prothrombin Time Ratio 1.0 INR International Normalized Ratio 0.95 Activated Partial Thromboplast Time 36.2 H Sodium Level 138 Potassium Level 4.2 Chloride Level 100 Carbon Dioxide Level 30 Anion Gap 12 Blood Urea Nitrogen 21 H Creatinine 1.05 Glucose Level 93 Calcium Level 9.5 Total Bilirubin 0.6 Direct Bilirubin 0.00 Indirect Bilirubin 0.6 Aspartate Amino Transf (AST/SGOT) 29 Alanine Aminotransferase (ALT/SGPT) 33 Alkaline Phosphatase 95 Total Protein 7.4 Albumin 3.7 Globulin 3.70 H Albumin/Globulin Ratio 1.00 Medications Medications Current Medications Amlodipine Besylate (Norvasc) 5 mg DAILY PO Last administered on 03/09/17 08: 37; Admin Dose 5 MG; Start 03/04/17 at 09:00 Atorvastatin Calcium (Lipitor) 10 mg HS PO Last administered on 03/09/17 21: 12; Admin Dose 10 MG; Start 03/04/17 at 21:00 Fish Oil (Fish Oil) 1,000 mg BID PO Last administered on 03/09/17 21:12; Admin Dose 1,000 MG; Start 03/04/17 at 09:00 Multivitamins Therapeutic (Theragran) 1 tab DAILY PO Last administered on 03/09 08:37; Admin Dose 1 TAB; Start 03/04/17 at 09:00 Tramadol HCl (Ultram) 50 mg Q6H PRN PO PAIN LEVEL 1-5 Last administered on 18:25; Admin Dose 50 MG; Start 03/04/17 at 03:30 Aspirin (Halfprin) 81 mg DAILY PO Last administered on 03/09/17 08:37; Admin Dose 81 MG; Start 03/04/17 at 09:00 Acetaminophen (Tylenol Tab) 325 mg Q6H PRN PO PAIN AND OR ELEVATED TEMP; Start 03/04/17 at 10:30 Senna (Senokot) 2 tab DAILY PRN PO CONSTIPATION Last administered on 08:40; Admin Dose 2 TAB; Start 03/08/17 at 11:30 EVERTON MCARTHUR MD Mar 10, 2017 08:52
[2017-03-10] MEDS: MULTIVITAMINS THERAPEUTIC TAB PO SCH (09:35)
[2017-03-10] MEDS: FISH OIL 1,000 MG CAP PO SCH ×2 (09:35→20:32)
[2017-03-10] MEDS: ASPIRIN (EC) 81 MG TAB PO SCH (09:35)
[2017-03-10] MEDS: AMLODIPINE 5 MG TAB PO SCH (09:36)
[2017-03-10] MEDS: SENNA TAB PO PRN (09:36)
[2017-03-10 14:11] VITALS: BP 137/65; PULSE 80; RESP 18
[2017-03-10 15:00] VITALS: BP 129/68; RESP 18
[2017-03-10 20:10] VITALS: BP 135/71; RESP 18
[2017-03-10] MEDS: ATORVASTATIN 10 MG TAB PO SCH (20:32)
[2017-03-10] MEDS ORDERED: MAGNESIUM CITRATE 300 ML BTL PO ONE (23:30)
[2017-03-11 08:00] VITALS: BP 143/65; RESP 18
[2017-03-11] MEDS: AMLODIPINE 5 MG TAB PO SCH (10:52)
[2017-03-11] MEDS: MULTIVITAMINS THERAPEUTIC TAB PO SCH (10:52)
[2017-03-11] MEDS: FISH OIL 1,000 MG CAP PO SCH ×2 (10:52→20:54)
[2017-03-11] MEDS: ASPIRIN (EC) 81 MG TAB PO SCH (10:52)
[2017-03-11 15:00] VITALS: BP 160/77; RESP 19
[2017-03-11] MEDS ORDERED: LORAZEPAM 0.5 MG TAB PO PRN (18:00)
--- NOTE | 2017-03-11 18:36 | PN ---
Date/Time of Note Date/Time of Note DATE: 03/11/17 TIME: 18:31 Assessment/Plan VTE Prophylaxis VTE Prophylaxis Intervention: SCD's Lines/Catheters IV Catheter Type (from Nrsg): Peripheral IV Central line still needed: No Urinary Cath still in place: No Assessment/Plan Problems: (1) Disoriented Status: Acute (2) Weakness Status: Acute (3) Lumbar spinal stenosis Status: Chronic Qualifiers: Neurogenic claudication status: with neurogenic claudication Qualified Code : M48.062 - Spinal stenosis of lumbar region with neurogenic claudication (4) Shoulder pain Status: Acute Qualifiers: Chronicity: acute Laterality: unspecified laterality Qualified Code: M25.519 - Acute shoulder pain, unspecified laterality (5) Essential hypertension Status: Chronic (6) Foot drop, left Status: Acute Assessment/Plan Patient altered and hallucinating. Slight change in WBC. Will obtain blood cultures and urine culture to rule out infection as cause. Creatinine slightly increased. Will give some fluids to rule out dehydration as cause. Subjective 24 Hr Interval Summary Free Text/Dictation Patient with ALOC. Hallucinating and disoriented. Exam/Review of Systems Vital Signs Vitals Vital Signs Date Time Temp Pulse Resp B/P Pulse Ox O2 Delivery O2 Flow Rate FiO2 03/11/17 15:00 98.0 91 19 160/77 98 03/08/17 19:48 Room Air Intake and Output 03/10/17 03/10/17 03/11/17 15:00 23:00 07:00 Intake Total 1000 ml 950 ml Output Total 950 ml 900 ml Balance 50 ml 50 ml Exam Constitutional: alert, well developed Neck: supple Respiratory: clear to auscultation Cardiovascular: regular rate and rhythm Gastrointestinal: soft Musculoskeletal: nl extremities to inspection Neurological: other (left foot drop) Results Labs and vital reviewed Result Diagram: 03/10/17 0500 03/10/17 0500 Medications Medications Current Medications Amlodipine Besylate (Norvasc) 5 mg DAILY PO Last administered on 03/11/17 10: 52; Admin Dose 5 MG; Start 03/04/17 at 09:00 Atorvastatin Calcium (Lipitor) 10 mg HS PO Last administered on 03/10/17 20: 32; Admin Dose 10 MG; Start 03/04/17 at 21:00 Fish Oil (Fish Oil) 1,000 mg BID PO Last administered on 03/11/17 10:52; Admin Dose 1,000 MG; Start 03/04/17 at 09:00 Multivitamins Therapeutic (Theragran) 1 tab DAILY PO Last administered on 03/11 10:52; Admin Dose 1 TAB; Start 03/04/17 at 09:00 Aspirin (Halfprin) 81 mg DAILY PO Last administered on 03/11/17 10:52; Admin Dose 81 MG; Start 03/04/17 at 09:00 Acetaminophen (Tylenol Tab) 325 mg Q6H PRN PO PAIN AND OR ELEVATED TEMP Last administered on 03/11/17 12:22; Admin Dose 325 MG; Start 03/04/17 at 10:30 Senna (Senokot) 2 tab DAILY PRN PO CONSTIPATION Last administered on 09:36; Admin Dose 2 TAB; Start 03/08/17 at 11:30 Quetiapine Fumarate (Seroquel) 25 mg QHS PO ; Start 03/11/17 at 21:00 Lorazepam (Ativan) 0.5 mg Q8H PRN PO ANXIETY/AGITATION; Start 03/11/17 at 18: 00 LOGAN BAE MD Mar 11, 2017 18:36
[2017-03-11] MEDS ORDERED: SOD CHLORIDE 0.9% 500 ML IV ONE (19:00)
[2017-03-11 19:09] VITALS: BP 143/81; RESP 18
[2017-03-11] MEDS: ATORVASTATIN 10 MG TAB PO SCH (20:54)
[2017-03-11] MEDS ORDERED: QUETIAPINE 25 MG TAB PO SCH (21:00)
[2017-03-12] MEDS ORDERED: LORAZEPAM 2 MG INJ IV ONE (01:30)
[2017-03-12 02:11] VITALS: BP 146/78; RESP 18
--- NOTE | 2017-03-12 08:52 | PN ---
Date/Time of Note Date/Time of Note DATE: 03/12/17 TIME: 08:49 Assessment/Plan VTE Prophylaxis VTE Prophylaxis Intervention: anti-embolic stocking Lines/Catheters IV Catheter Type (from Nrsg): Saline Lock Urinary Cath still in place: No Subjective 24 Hr Interval Summary Free Text/Dictation confusion reported by son to be better, but is skleeping now and not disturbed. await aru evaluation.p.t. notes seen and appreciated vs ok now, lungs sound clear, hr ok will reevaluate later today Constitutional: requiring IVF Musculoskeletal: bone/joint pain Exam/Review of Systems Vital Signs Vitals Vital Signs Date Time Temp Pulse Resp B/P Pulse Ox O2 Delivery O2 Flow Rate FiO2 03/12/17 02:11 98.3 89 18 146/78 94 03/08/17 19:48 Room Air Intake and Output 03/11/17 03/11/17 03/12/17 14:59 22:59 06:59 Intake Total 1580 ml 950 ml Output Total 400 ml 850 ml Balance 1180 ml 100 ml Results Result Diagram: 03/10/17 0500 03/10/17 0500 Medications Medications Current Medications Amlodipine Besylate (Norvasc) 5 mg DAILY PO Last administered on 03/11/17 10: 52; Admin Dose 5 MG; Start 03/04/17 at 09:00 Atorvastatin Calcium (Lipitor) 10 mg HS PO Last administered on 03/11/17 20: 54; Admin Dose 10 MG; Start 03/04/17 at 21:00 Fish Oil (Fish Oil) 1,000 mg BID PO Last administered on 03/11/17 20:54; Admin Dose 1,000 MG; Start 03/04/17 at 09:00 Multivitamins Therapeutic (Theragran) 1 tab DAILY PO Last administered on 03/11 10:52; Admin Dose 1 TAB; Start 03/04/17 at 09:00 Aspirin (Halfprin) 81 mg DAILY PO Last administered on 03/11/17 10:52; Admin Dose 81 MG; Start 03/04/17 at 09:00 Acetaminophen (Tylenol Tab) 325 mg Q6H PRN PO PAIN AND OR ELEVATED TEMP Last administered on 03/11/17 12:22; Admin Dose 325 MG; Start 03/04/17 at 10:30 Senna (Senokot) 2 tab DAILY PRN PO CONSTIPATION Last administered on 09:36; Admin Dose 2 TAB; Start 03/08/17 at 11:30 Quetiapine Fumarate (Seroquel) 25 mg QHS PO Last administered on 03/11/17 20: 54; Admin Dose 25 MG; Start 03/11/17 at 21:00 Lorazepam (Ativan) 0.5 mg Q8H PRN PO ANXIETY/AGITATION Last administered on 23:42; Admin Dose 0.5 MG; Start 03/11/17 at 18:00 EVERTON MCARTHUR MD Mar 12, 2017 08:52
[2017-03-12] MEDS: FISH OIL 1,000 MG CAP PO SCH ×2 (10:00→21:19)
[2017-03-12] MEDS: MULTIVITAMINS THERAPEUTIC TAB PO SCH (10:00)
[2017-03-12] MEDS: ASPIRIN (EC) 81 MG TAB PO SCH (10:01)
[2017-03-12] MEDS: AMLODIPINE 5 MG TAB PO SCH (10:01)
[2017-03-12 14:12] VITALS: BP 130/60; RESP 18
[2017-03-12 19:23] VITALS: BP 129/66; RESP 18
[2017-03-12] MEDS: ATORVASTATIN 10 MG TAB PO SCH (21:19)
[2017-03-13 02:10] VITALS: BP 152/72; RESP 18
[2017-03-13 05:14] LABS: BASOPHIL # 0.1 10^3/ul (0.0-0.1); BASOPHILS % 0.8 % (0.0-2.0); EOSINOPHILS # 0.5 10^3/ul (0.0-0.5); EOSINOPHILS % 5.7 % (0.0-7.0); HEMATOCRIT 43.1 % (42.0-52.0); HEMOGLOBIN 14.2 g/dl (14.0-18.0); LYMPHOCYTES # 1.6 10^3/ul (0.8-2.9); LYMPHOCYTES % 17.9 % (15.0-51.0); MEAN CORPUSCULAR HEMOGLOBIN 30.5 pg (29.0-33.0); MEAN CORPUSCULAR HGB CONC 32.9 g/dl (32.0-37.0); MEAN CORPUSCULAR VOLUME 92.5 fl (82.0-101.0); MEAN PLATELET VOLUME 8.3 fl (7.4-10.4); MONOCYTE # 0.7 10^3/ul (0.3-0.9); MONOCYTES % 7.9 % (0.0-11.0); NEUTROPHIL # 5.9 10^3/ul (1.6-7.5); NEUTROPHILS % 67.2 % (39.0-77.0); PLATELET COUNT 352 10^3/UL (140-415); RED BLOOD COUNT 4.66 10^6/ul (4.70-6.10); RED CELL DISTRIBUTION WIDTH 12.9 % (11.5-14.5); WHITE BLOOD COUNT 8.8 10^3/ul (4.8-10.8)
[2017-03-13 05:41] LABS: ALBUMIN 3.6 g/dl (3.3-4.9); ALBUMIN/GLOBULIN RATIO 1.02; BILIRUBIN,INDIRECT 0.4 mg/dl (0-1.1); BILIRUBIN,TOTAL 0.4 mg/dl (0.2-1.3); CALCIUM 9.4 mg/dl (8.4-10.2); CREATININE 1.1 mg/dl (0.61-1.24); POTASSIUM 4.3 mmol/L (3.5-5.1); TOTAL PROTEIN 7.1 g/dl (6.1-8.1)
[2017-03-13 07:24] VITALS: BP 125/60; RESP 18
[2017-03-13] MEDS: ASPIRIN (EC) 81 MG TAB PO SCH (08:32)
[2017-03-13] MEDS: AMLODIPINE 5 MG TAB PO SCH (08:32)
[2017-03-13] MEDS: MULTIVITAMINS THERAPEUTIC TAB PO SCH (08:32)
[2017-03-13] MEDS: FISH OIL 1,000 MG CAP PO SCH (08:32)
--- NOTE | 2017-03-13 09:18 | PN ---
Date/Time of Note Date/Time of Note DATE: 03/13/17 TIME: 09:14 Assessment/Plan VTE Prophylaxis VTE Prophylaxis Intervention: ambulation Lines/Catheters IV Catheter Type (from Nrsg): Saline Lock Urinary Cath still in place: No Subjective 24 Hr Interval Summary Free Text/Dictation good night, no confusion this am. will arrange dc to [facility], to return for back surgery complaining of eye dryness, burning, will order artificial tears alert, oriented lungs clear hr ok no edema bilat shoulder pain worse on left with poor rom foot drop left. did walk with pt delerium has resolved, prob toxic encephalopathy secondary to meds for dc today Musculoskeletal: bone/joint pain Neurologic: focal-weakness Exam/Review of Systems Vital Signs Vitals Vital Signs Date Time Temp Pulse Resp B/P Pulse Ox O2 Delivery O2 Flow Rate FiO2 03/13/17 07:24 98.0 76 18 125/60 94 Intake and Output 03/12/17 03/12/17 03/13/17 15:00 23:00 07:00 Intake Total 720 ml 840 ml Output Total 200 ml 400 ml Balance 520 ml 440 ml Results Result Diagram: 03/13/17 0424 03/13/17 0424 Results 24 hrs Laboratory Tests Test 03/13/17 04:24 White Blood Count 8.8 Red Blood Count 4.66 L Hemoglobin 14.2 Hematocrit 43.1 Mean Corpuscular Volume 92.5 Mean Corpuscular Hemoglobin 30.5 Mean Corpuscular Hemoglobin Concent 32.9 Red Cell Distribution Width 12.9 Platelet Count 352 # Mean Platelet Volume 8.3 Neutrophils % 67.2 Lymphocytes % 17.9 Monocytes % 7.9 Eosinophils % 5.7 Basophils % 0.8 Nucleated Red Blood Cells % 0.0 Neutrophils # 5.9 Lymphocytes # 1.6 Monocytes # 0.7 Eosinophils # 0.5 Basophils # 0.1 Nucleated Red Blood Cells # 0.0 Sodium Level 138 Potassium Level 4.3 Chloride Level 101 Carbon Dioxide Level 26 Anion Gap 15 Blood Urea Nitrogen 23 H Creatinine 1.10 Glucose Level 87 Calcium Level 9.4 Total Bilirubin 0.4 Direct Bilirubin 0.00 Indirect Bilirubin 0.4 Aspartate Amino Transf (AST/SGOT) 27 Alanine Aminotransferase (ALT/SGPT) 31 Alkaline Phosphatase 104 Total Protein 7.1 Albumin 3.6 Globulin 3.50 H Albumin/Globulin Ratio 1.02 Medications Medications Current Medications Amlodipine Besylate (Norvasc) 5 mg DAILY PO Last administered on 03/13/17 08: 32; Admin Dose 5 MG; Start 03/04/17 at 09:00 Atorvastatin Calcium (Lipitor) 10 mg HS PO Last administered on 03/12/17 21: 19; Admin Dose 10 MG; Start 03/04/17 at 21:00 Fish Oil (Fish Oil) 1,000 mg BID PO Last administered on 03/13/17 08:32; Admin Dose 1,000 MG; Start 03/04/17 at 09:00 Multivitamins Therapeutic (Theragran) 1 tab DAILY PO Last administered on 03/13 08:32; Admin Dose 1 TAB; Start 03/04/17 at 09:00 Aspirin (Halfprin) 81 mg DAILY PO Last administered on 03/13/17 08:32; Admin Dose 81 MG; Start 03/04/17 at 09:00 Acetaminophen (Tylenol Tab) 325 mg Q6H PRN PO PAIN AND OR ELEVATED TEMP Last administered on 03/11/17 12:22; Admin Dose 325 MG; Start 03/04/17 at 10:30 Senna (Senokot) 2 tab DAILY PRN PO CONSTIPATION Last administered on 09:36; Admin Dose 2 TAB; Start 03/08/17 at 11:30 EVERTON MCARTHUR MD Mar 13, 2017 09:18
[2017-03-13] MEDS ORDERED: ARTIFICIAL TEARS 15 ML OPH BOTH EYES PRN (09:30)
[2017-03-13 14:00] VITALS: BP 146/72; RESP 18
--- NOTE | 2017-03-13 15:47 | DS ---
DATE OF ADMISSION: 03/04/2017 DATE OF DISCHARGE: 03/13/2017 CHIEF COMPLAINT: Fall with pain in left shoulder. FINAL DIAGNOSES: 1. Full-thickness tear supraspinatus and infraspinatus tendons, left shoulder, severe degenerative arthritis, left shoulder, and biceps tendinosis. 2. Lumbar disk disease with left footdrop. 3. Chronic right shoulder dysfunction. 4. Hypertension. 5. History of prostate cancer with chemical recurrence, without evidence for bone or other metastas es. HOSPITAL COURSE: 1. This is an 87-year-old black male who has generally been in excellent health, continues to work. The patient developed some sciatic symptoms of relatively moderate degree on the left side and dev eloped a footdrop. He has been seen by Dr. Barnett. He has not improved with conservative measur es and has been scheduled for back surgery as a last resort on the of this month. The patient has been having difficulty ambulating safely. He has been using a walker. His son has been staying with him part-time. At any rate, the patient fell at home on the day prior to admission, suffering significant pain in the left shoulder which was not relieved with rest and ice. Came to the emerge ncy room. There is obviously no evidence for a cerebral ischemic event despite his admitting diagno sis by the ER physician. Brain CT relatively unremarkable. Carotid ultrasound relatively unremarka ble. Electrocardiogram sinus rhythm, no changes, although there is prominent R-wave in V1. Echocar diogram has been ordered prior to discharge. MRI of the shoulder confirms the above findings. The patient was seen by Dr. Nicholson and by Dr. Barnett. Dr. Nicholson felt that he ultimately will prob ably need a complete shoulder surgery and is not currently a candidate until his back problem has be en dealt with. The patient was seen by PT and OT. Has made some improvement in upper extremity fun ction despite pain, and he was able to ambulate with minimal assist. The patient continues to be a fall risk and will be transferred to [facility] until he returns to [facility] fo r surgery. At this point, his medical status is acceptable for surgery and he is stable. All of hi s medications will be continued. 2. Intrahospital toxic encephalopathy with visual hallucinations, felt secondary probably to tramad ol. Tramadol was discontinued. He was transiently placed on Ativan and Seroquel. Both of those howard ve been discontinued. The patient was better yesterday and is back to his usual status today. He i s complaining of some eye dryness and Artificial Tears have been ordered. DISCHARGE MEDICATIONS: 1. Tylenol. 2. Amlodipine. 3. Artificial Tears. 4. Atorvastatin. 5. Senna. The patient's aspirin has been discontinued prior to surgery. CONDITION: Good at the time of discharge. Discharge WBC 8800, hemoglobin 14, creatinine 1.1, normal electrolytes. Dictated By: EVERTON MCARTHUR MD SR/NTS Conf#: [id number] DID#: [id number] CC: NAVNEET MULLINS MD;*End*
--- NOTE | 2017-03-17 13:52 | RADRPT ---
Echocardiogram Report Patient Name: APRYL JAIMES Gender: Male Date: 1930 Study Date: 13-Mar-2017 Management Recruiter: Lamin [facility] Location: 428-A Ref. Physician: EVERTON MCARTHUR Quality: Adequate Procedures: Transthoracic echocardiogram with complete 2D, M-Mode, and doppler examination. Indications: Pre-op. 2D/M Mode Doppler Measurement Value Normal Ranges Measurement Value Normal Ranges LVIDd 2D 4.1 3.5 - 5.6 cm JACE Vmax 1.1 cm2 LVIDs 2D 3.0 2.1 - 4.1 cm JACE VTI 1.2 cm2 LVPWd 2D 1.3 0.6 - 1.1 cm LVOT Mean Ziggy 0.8 m/sec IVSd 2D 1.3 0.6 - 1.1 cm LVOT Mean PG 3.1 mmHg AoR Diam 2D 3.4 2.0 - 3.7 cm LVOT Peak Ziggy 1.1 m/sec EDV 2D 74.9 cm3 LVOT Peak PG 4.7 mmHg ESV 2D 27.7 cm3 LVOT VTI 23.3 cm LA Dimen 2D 3.5 2.3 - 4.0 cm MV E Peak Ziggy 0.9 m/sec LVOT Diam 2.1 cm MV A Peak Ziggy 1.4 m/sec MV E/A 0.7 MV Decel Time 305 msec MV Decel Angelina 3 MV E/A 0.7 TR Peak Ziggy 2.5 m/sec TR Peak PG 25.1 mmHg Findings Left Ventricle: Normal left ventricular systolic function. Normal left ventricular cavity size. Mild concentric left ventricular hypertrophy. Ejection fraction is visually estimated at 70 %. Tissue Doppler/Mitral Doppler indices are consistent with impaired relaxation (Stage I diastolic dysfunction). Right Ventricle: Normal right ventricular size. Normal right ventricular systolic function. Left Atrium: There is mild enlargement of left atrium. Right Atrium: The right atrium is normal in size. Mitral Valve: Mild mitral leaflet calcification. Moderate mitral annular calcification. Mild mitral valve regurgitation. Aortic Valve: Moderate aortic stenosis. Aortic valve Max velocity 3.47 m/sec. Max PG 48.10 mmHg. Mean PG 24.70 mmHg. Aortic cusps appear severely calcified. Mild aortic valve regurgitation. Tricuspid Valve: Normal appearance of the tricuspid valve. Estimated peak PA systolic pressure 25 mmHg. There is mild tricuspid regurgitation. Pulmonic Valve: Pulmonic valve not well visualized. There is trace pulmonic regurgitation. Pericardium: Normal pericardium with no significant pericardial effusion. Aorta: Normal aortic root. IVC: Normal size and normal respiratory collapse consistent with normal right atrial pressure. Conclusions 1.Normal left ventricular systolic function. Normal left ventricular cavity size. Mild concentric left ventricular hypertrophy. Ejection fraction is visually estimated at 70 %. Tissue Doppler/Mitral Doppler indices are consistent with impaired relaxation (Stage I diastolic dysfunction). 2.Moderate aortic stenosis. Aortic valve Max velocity 3.47 m/sec. Max PG 48.10 mmHg. Mean PG 24.70 mmHg. Aortic cusps appear severely calcified. Mild aortic valve regurgitation. 3.Estimated peak PA systolic pressure 25 mmHg based on RA pressure of 3 mmHg. Electronically Signed By: Zhen Manzano 17-Mar-2017 13:51:02 -0800 Patient Name: APRYL JAIMES Study Date: 13-Mar-2017 [id number]
== END 2017-03-13 16:20 | DRG 562 ==
LOC: E/R 15:52 → MS4 03-04 00:44 → MS1 03-04 15:15
PROVIDERS: ADMIT Internal Medicine; ATTEND Internal Medicine
DX: S46.812A Strain of other muscles, fascia and tendons at shoulder and upper arm level, left arm, initial encounter (principal); G92 Toxic encephalopathy; M75.22 Bicipital tendinitis, left shoulder; M19.012 Primary osteoarthritis, left shoulder; S43.422A Sprain of left rotator cuff capsule, initial encounter; C61 Malignant neoplasm of prostate; I10 Essential (primary) hypertension; W19.XXXA Unspecified fall, initial encounter; T40.4X5A Adverse effect of other synthetic narcotics, initial encounter; M21.372 Foot drop, left foot; M51.9 Unspecified thoracic, thoracolumbar and lumbosacral intervertebral disc disorder; Y92.239 Unspecified place in hospital as the place of occurrence of the external cause; R44.1 Visual hallucinations; K59.00 Constipation, unspecified
CPT/HCPCS: 70450; 71010; 72125; 73030; 73060; 73200; 73221; 80048; 80053; 80061; 81003; 83036; 83735; 84100; 84484; 85025; 85610; 85730; 87040; 87086; 92523; 92610; 93005; 93306; 93880; 97003; 97110; 97116; 97163; 97166; 97530; 97535; J1040; J1644; J7040

== ENCOUNTER 2017-03-25 05:18 | Inpatient (IN) | payer MEDICARE, OTHER ==
[2017-03-25] VITALS (29 sets, daily range): BP systolic 113–145; BP diastolic 48–106; PULSE 63–93; RESP 13–26; Ht 167.6 cm; Wt 72.0 kg
[~2017-03-25] VITALS: Ht 167.6 cm; Wt 72.0 kg
[~2017-03-25 05:18] MED LIST changes: +AMLO5TAB4 PO; +TRAM-40 PO; -[UNRECOGNIZED DRUG - OTHER]
--- NOTE | 2017-03-25 06:09 | PREOPHP ---
DATE OF ADMISSION: 03/25/2017 SURGERY DATE: 03/19/2017, Dr. Barnett. CHIEF COMPLAINT: Left-sided leg pain and foot drop. HISTORY OF PRESENT ILLNESS: This is an 87-year-old male who has been working up until the last several months. His background history is positive for hypertension, hyperlipidemia and remot e cancer of the prostate. The patient has a longstanding history of lumbar disk disease and prior l aminectomy. The patient fell sometime in the spring, started to develop increasing pain in the left hip and also foot drop. He has been found to have multilevel spinal stenosis with foraminal narrow ing, mostly on the left, but also on the right. Patient is not improved with most conservative sasha ures and because of the foot drop, his ambulation is markedly interfered with. In fact, the patient fell at home despite some family staying with him and suffered a complete rupture of his shoulder c uff on the left side and was recently hospitalized. The patient is known to have an old right-sided shoulder cuff tear as well. At any rate, the patient is agreeable to surgery. He has some surgica l risk including mostly his age. He also had transitory delirium during his hospitalization, but ge nerally that is not a problem when he is at home. PAST SURGICAL HISTORY: He had a radical retropubic prostatectomy in 1995 with [place] grade 4 tumor and 1 positive lymph node. No further treatment at that time was given. His PSA started to rise s ome around 2009, multiple evaluations for bone mets have been negative. He is a patient of Dr. Welsh . He as well had renal stones and bladder stones. He had cataract surgeries in 2012 and 2014 for b oth eyes. He has had laser surgery for glaucoma, as noted previous laminectomy. PAST MEDICAL HISTORY: Include hypertension, hyperlipidemia as noted above. CURRENT MEDICATIONS: 1. Amlodipine 5 mg. 2. Losartan 50 mg. 3. Lipitor 20 mg. FAMILY HISTORY: The patient is a . There are 4 children. 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 ALLERGIES: THERE ARE NO KNOWN ALLERGIES. SOCIAL HISTORY: The patient is a lifelong nonsmoker, does not drink alcohol. REVIEW OF SYSTEMS: GENERAL: No headaches, does require reading glasses and his hearing is somewhat poor, wears hearing aids. CARDIOPULMONARY: Denies shortness of breath, cough, or exertional chest pain. GASTROINTESTINAL: Has longstanding need for laxatives, has been found to have mild rectal stricture in the past, colonoscopy in 2011, was positive for some polyps and hemorrhoids. GENITOURINARY: Some nocturia. Stream is well preserved. NEUROLOGIC: Other than the back and the foot drop, he has some chronic difficulty with his right howard nd with buttoning and function of the hand with some mild to moderate wasting. EXTREMITIES: He has bilateral reduction of range of motion of his shoulders, especially on the left side with significant pain. PHYSICAL EXAMINATION: GENERAL: Reveals an alert, pleasant gentleman whose stature belies his age. VITAL SIGNS: Blood pressure 112/72, pulse 72, he was afebrile. HEENT: Pupils round, reactive. Ears unremarkable. Mouth is normal. NECK: Supple. Bilateral reduction in range of motion of the shoulders. CHEST: Sounds clear. HEART: Tones regular. ABDOMEN: Soft. GENITALIA: Unremarkable. EXTREMITIES: No clubbing, cyanosis, edema. Has some wasting as noted of the right hand, has a pron ounced left foot drop and requires an AFO brace. Fair range of motion of all of his joints. IMPRESSION: 1. Preoperative status for lumbar laminectomy. 2. Multilevel spinal stenosis. 3. Left foot drop. 4. Bilateral shoulder cuff tears, markedly worse on the left, which is moderately acute. 5. Remote history of prostate cancer with a somewhat elevated PSA, which has been stable without ev idence for bony metastases. DISCUSSION: At this time, the patient's status is acceptable for surgery with obvious risk which he is aware of and willing to take. Hopefully there will be some improvement in his foot drop. We wi ll be glad to follow him along with you postoperatively. Electrocardiogram in the hospital on his p revious admission was normal. Echocardiogram has been performed and results are available. Chest x -rays have been unremarkable. Dictated By: EVERTON MCARTHUR MD SR/NTS Conf#: [id number] DID#: [id number] CC: NAVNEET MULLINS MD;*End*
[2017-03-25] MEDS ORDERED: GELATIN SIZE 100 SPONGE ONE (07:00)
[2017-03-25] MEDS ORDERED: CEFAZOLIN 1 GM INJ ONE ×2 (07:00)
[2017-03-25] MEDS ORDERED: CA CHLORIDE 10% 10 ML SYRINGE ONE (07:00)
[2017-03-25] MEDS ORDERED: ROCURONIUM 50 MG INJ ONE (07:00)
[2017-03-25] MEDS ORDERED: FENTAnyl 50 MCG/ML VIAL ONE (07:00)
[2017-03-25] MEDS ORDERED: SURGIFOAM POWDER 1 GM KIT ONE (07:00)
[2017-03-25] MEDS ORDERED: PROPOFOL 100 ML ONE (07:00)
[2017-03-25] MEDS ORDERED: BUPIVACAINE 0.5%/EPI (SDV) 30 ML INJ ONE (07:00)
[2017-03-25] MEDS ORDERED: THROMBIN 5000 UNIT VIAL ONE (07:00)
--- NOTE | 2017-03-25 07:00 | HPN ---
Date/Time of Note Date/Time of Note DATE: 03/25/17 TIME: 06:59 Interval H&P Admission Note Pt. seen H&P reviewed: No system changes TIFFANY RUIZ MD Mar 25, 2017 07:00
[2017-03-25] MEDS ORDERED: HEPARIN 1000 UNITS/ML 10 ML INJ ONE (07:01)
[2017-03-25] MEDS ORDERED: CYCLOBENZAPRINE 10 MG TAB PO PRN (07:30)
[2017-03-25] MEDS ORDERED: ONDANSETRON 4 MG INJ IV PRN ×3 (07:30→10:30)
[2017-03-25] MEDS ORDERED: DIPHENHYDRAMINE 25 MG CAP PO PRN (07:30)
[2017-03-25] MEDS ORDERED: DIPHENHYDRAMINE 50 MG INJ IV PRN ×3 (07:30→10:30)
[2017-03-25] MEDS ORDERED: BISACODYL 10 MG SUPP PR PRN (07:30)
[2017-03-25] MEDS ORDERED: HYDROmorphONE 0.5 MG/0.5 ML SYG IV PRN ×3 (07:30→10:30)
[2017-03-25] MEDS ORDERED: NALOXONE (0.4 MG/ML) INJ IV PRN (07:30)
[2017-03-25] MEDS ORDERED: ACETAMINOPHEN 325 MG TAB PO PRN ×2 (07:30→18:30)
[2017-03-25] MEDS ORDERED: CEPASTAT LOZENGE MT PRN (07:30)
[2017-03-25] MEDS ORDERED: HYDROCODONE/APAP (5/325) TAB PO PRN (07:30)
[2017-03-25] MEDS ORDERED: AL HYDROX/MG HYDROX/SIMETH 30 ML CUP PO PRN (07:30)
[2017-03-25] MEDS ORDERED: HYDROmorphONE 0.2 MG/ML PCA IV SCH (07:30)
[2017-03-25] MEDS ORDERED: MAGN400O4 PO (07:34)
[2017-03-25] MEDS ORDERED: BISA-57 PO (07:34)
[2017-03-25] MEDS ORDERED: ACET325T45 PO (07:34)
[2017-03-25] MEDS ORDERED: SENN-53 PO (07:34)
[2017-03-25] MEDS ORDERED: MINE133E23 RC (07:34)
[2017-03-25] MEDS ORDERED: ASC500 PO (07:34)
[2017-03-25] MEDS ORDERED: ARTIFICIAL TEARS BOTH EYES (07:34)
[2017-03-25] MEDS: CEFAZOLIN 1 GM/50 ML (PMX) 50 ML IVPB SCH ×2 (08:00→18:01)
[2017-03-25] MEDS ORDERED: PHENYLephrine (100 MCG/ML) 5ML SYG ONE ×2 (08:13→08:34)
[2017-03-25] MEDS ORDERED: LIDOCAINE 2% (SDV) 5 ML INJ ONE (08:13)
--- NOTE | 2017-03-25 08:58 | RADRPT ---
PROCEDURE: XR Lumbar Spine. CLINICAL INDICATION: LUMBAR L4-5-S1 REVISION DECOMPRESSION TECHNIQUE: A single cross-table lateral view of the lumbosacral spine was performed. COMPARISON: No prior studies are available for comparison. FINDINGS: There are degenerative osteophytes in the thoracic and lumbar spine. Surgical hardware projects dors al to the L4-5 disc space. There is grade 1 anterolisthesis of L4 on L5. There is dorsal disc space narrowing between all of the lumbar vertebra with ventral osteophytes in the lower thoracic and lumb ar spine. There are metal clips in the lower pelvis related to earlier surgery. IMPRESSION: 1. Osteoarthritis of the thoracic and lumbosacral spine with disc space narrowing. 2. Surgical hardware from ongoing surgery projecting dorsal to the L4-5 intervertebral disc space. 3. Disc space narrowing with grade 1 anterolisthesis of L4 and L5. RPTAT:AAJJ Physician Kartik Date Time Electronically viewed and signed by Physician Kartik on 03/25/2017 08:58 RADHA/
[2017-03-25] MEDS: DOCUSATE SODIUM 100 MG CAP PO SCH ×2 (09:00→20:38)
[2017-03-25] MEDS: FERROUS SULFATE (EC) 325 MG TAB PO SCH ×3 (09:00→20:38)
[2017-03-25] MEDS ORDERED: ASCORBIC ACID 500 MG TAB PO SCH (09:00)
[2017-03-25] MEDS ORDERED: METOCLOPRAMIDE 10 MG INJ ONE (09:24)
[2017-03-25] MEDS ORDERED: ONDANSETRON 4 MG INJ ONE (09:24)
[2017-03-25] MEDS ORDERED: DEXAMETHASONE 4 MG/ML 1 ML INJ ONE (09:24)
[2017-03-25] MEDS ORDERED: ACETAMINOPHEN 1000MG/100ML IV 100 ML ONE (09:24)
[2017-03-25] MEDS ORDERED: SUGAMMADEX SODIUM 200 MG/2 ML VIAL IV ONE (09:25)
[2017-03-25] MEDS ORDERED: MEPERIDINE 25 MG INJ IV PRN ×2 (10:00→10:30)
[2017-03-25] MEDS ORDERED: HYDROmorphONE (0.2 MG/ML) 10ML SYG IV PRN ×3 (10:00)
[2017-03-25] MEDS ORDERED: hydrALAzine 20 MG INJ IV PRN ×2 (10:00→10:30)
[2017-03-25] MEDS ORDERED: morphine (1 MG/ML) 10ML SYRINGE IV PRN ×3 (10:00)
[2017-03-25] MEDS ORDERED: METOCLOPRAMIDE 10 MG INJ IV PRN ×2 (10:00→10:30)
[2017-03-25] MEDS ORDERED: EPHEDrine SULFATE 50 MG/5 ML SYG IV PRN ×2 (10:00→10:30)
[2017-03-25] MEDS ORDERED: LABETALOL HCL 20MG INJ IV PRN ×2 (10:00→10:30)
[2017-03-25] MEDS ORDERED: FENTAnyl 50 MCG/ML VIAL IV PRN ×6 (10:00→10:30)
[2017-03-25] MEDS ORDERED: ALBUMIN HUMAN 5% 250 ML IV PRN ×2 (10:00→10:30)
[2017-03-25] MEDS ORDERED: morphine 4 MG/ML VIAL IV PRN (10:30)
[2017-03-25] MEDS ORDERED: morphine 2 MG INJ IV PRN (10:30)
[2017-03-25] MEDS ORDERED: HYDROmorphONE 1 MG/ML SYG IV PRN (10:30)
[2017-03-25] MEDS ORDERED: morphine 10 MG INJ IV PRN (10:30)
[2017-03-25] MEDS: D5W-0.45 NACL + KCL 20 MEQ 1,000 ML IV SCH ×3 (11:34→21:52)
--- NOTE | 2017-03-25 12:23 | OPR ---
DATE OF OPERATION: 03/25/2017 PREOPERATIVE DIAGNOSES: 1. Lumbar spinal stenosis, status post previous lumbar decompression. 2. Left lumbosacral radiculopathy and foot drop. POSTOPERATIVE DIAGNOSES: 1. Lumbar spinal stenosis, status post previous lumbar decompression. 2. Left lumbosacral radiculopathy and foot drop. PROCEDURE: 1. Left L4 to 5 and L5 to S1 revision decompression with decompression of L4, L5 and S1 nerve roots. 2. Left L4 to 5 microdiskectomy. 3. Use of intraoperative neuromonitoring (2 hours 15 minutes). 4. Use of operative microscope. PRIMARY SURGEON: Taran Ruiz MD. CORE MAKER: SURINDER Martell. NEED FOR EXHIBITION CARVER: During this spinal surgical procedure, my contact center assistant was used to retract and protect the spinal nerves and dural sac. My contact center assistant also employed the suction catheters to evacuate blood from the surgical field to improve visualization of the neural structures. The contact center assistant was medically necessary to facilitate the completion of the surgery in a safe and expeditious manner. [facility] [place] regulations, as well as hospital bylaws, preclude the use of non-licensed health care personnel, such as operating room technicians, to perform these functions. FINDINGS: Left L4 amplitude down 30%, left L5 amplitude down 50%, left S1 amplitude down 40%. Left L3 amplitude was normal at the start of the case. End of the case, all nerve signals were normal. Patient had residual stenosis on the left at L4 to 5 and L5 to S1. ESTIMATED BLOOD LOSS: 150 mL. DRAINS: None. SPECIMENS: L4 to 5 disk. COMPLICATIONS OF PROCEDURES: None. ANESTHESIOLOGIST: Mackenzie. TYPE OF ANESTHESIA: General. INDICATIONS FOR PROCEDURE: This is an 87-year-old gentleman who had previously undergone lumbar decompression several years ago by another physician. In the last 6 to 8 months, he developed left-sided foot drop with no symptoms on the right side. After failure of nonoperative measures, it was recommended he undergo the above procedure. Preoperatively, we discussed the risks, benefits, and alternatives. He understood and wished to proceed. DESCRIPTION OF PROCEDURE IN DETAIL: The patient was identified in the preoperative holding area, given Ancef antibiotic, taken to the operating room, where he was successfully placed under general anesthesia. Neuromonitoring leads were placed, sequential compressive devices were applied. Cain catheter was introduced. Arterial line was placed. Neuromonitoring was utilized during the procedure for 2 hours and 15 minutes to include SSEP, MEP and EMG. This was performed by [employer]. Start time was 8:05 a.m., closure time was 10:20 a.m. The patient was placed on the operating table in prone position over a Mihir frame. All bony prominences were well padded. The back was prepped and draped in usual sterile fashion. Marcaine and epinephrine were injected. I utilized the majority of the patient's previous incision. I incised down to the dorsal fascia. I then exposed to the left through the scar tissue to identify the facet joint at L4 to 5. I then placed an instrument at the L4 to 5 level and took a lateral film to confirm the correct level. Once this was confirmed, I exposed through the scar and I was able to find the L5 to S1 facet joint, the L4 to 5 facet joint and the L3 to 4 facet joint. I then identified the pars in between. The patient had the previous surgery and the scar tissue added at least 30 minutes to the procedure complicating the procedure due to the alteration of the field. I took time using curettes in order to peel the scar tissue off of the dura to expose the dura and take this off of the facet joints. Next, I performed a revision decompression on the left at L4 to 5 and L5 to S1 with partial facetectomy. I was able to decompress the left L3, left L4, L5 and S1 nerve roots. Once this was done, all nerve signals returned to normal. I then brought the microscope in to evaluate the L4 to 5 disk. I was concerned there may be an extraforaminal herniation. I made an annulotomy with limited microdiskectomy in order to further free up the nerve root. This diskectomy was done in order to further alleviate this stenosis and was done to alleviate the stenosis. Once this was done, I irrigated the wound. Hemostasis achieved with Surgifoam and bipolar cautery. Valsalva maneuver was performed and there was no leak of CSF. I injected TTP with thrombin over the dura for hemostatic purposes. I then closed the deep fascia with #1 Vicryl stitch. I then closed subcutaneous tissue with a 2-0 Vicryl stitch. A 4-0 Monocryl closure was then performed. Dermabond and sterile dressings were then applied. The patient was then awakened from anesthesia and taken to recovery in stable condition. Lap, sponge and instrument counts were correct x2. There were no apparent complications during the procedure. The patient will be admitted to the ICU for routine postoperative care to include pain control, neurovascular checks, antibiotics and physical therapy. Dictated By: TARAN RUIZ MD BB/HI Conf#: [id number] DID#: [id number] MTDD
--- NOTE | 2017-03-25 18:21 | CONS ---
Date/Time of Note Date/Time of Note DATE: 03/25/17 TIME: 18:18 Assessment/Plan Assessment/Plan Problems: (1) S/P lumbar laminectomy Onset Date: ~ 03/25/2017 Status: Acute Comment: He is in the intensive care unit after the major surgery. At this time he appears stable under the excellent assistance from our ICU staff. He is comfortable and already working with physical therapy. We will watch him very carefully with a goal toward rehabilitation which should be good assuming there is no unexpected complications (2) Moderate aortic stenosis by prior echocardiogram Onset Date: ~ 03/13/2017 Status: Chronic Comment: Noted on echocardiogram in the last month. At this time no specific medical intervention (3) Essential hypertension Status: Chronic Comment: Continue with his outpatient medication regimen (4) Diastolic dysfunction Onset Date: ~ 03/13/2017 Status: Chronic Comment: Noted on echocardiogram. (5) Hyperlipidemia Status: Chronic Comment: Continue with statin therapy Qualifiers: Hyperlipidemia type: pure hypercholesterolemia Qualified Code: E78.00 - Pure hypercholesterolemia Consultation Date/Type/Reason Admit Date/Time Mar 25, 2017 at 05:18 Initial Consult Date March 25, 2017 Type of Consultation: Internal medicine Reason for Consultation Preoperative assistance with medical problems after spinal surgery-lumbar Referring Provider: TIFFANY RUIZ MD 24 HR Interval Summary Free Text/Dictation This gentleman reports he is doing well and denies actually any pain. Specifically denies cardiac or respiratory symptoms Constitutional: no complaints Detailed Summary Respiratory: no complaints Cardiovascular: no complaints Gastrointestinal: no complaints Exam/Review of Systems Vital Signs Vitals Vital Signs Date Time Temp Pulse Resp B/P Pulse Ox O2 Delivery O2 Flow Rate FiO2 03/25/17 16:00 80 03/25/17 14:00 16 145/78 97 Room Air 03/25/17 12:30 97.6 03/25/17 11:15 8.0 Exam Constitutional: alert, oriented Neck: non-tender, supple Respiratory: clear to auscultation, normal air movement Cardiovascular: murmurs/extra sounds (Murmur consistent with aortic stenosis decreased carotid upstrokes with rapid d descent), nl pulses, regular rate and rhythm Medications Medications Current Medications Potassium Chloride/Dextrose/ Sod Cl (D5-1/2ns + KCl 20 Meq) 1,000 ml @ 100 mls/ hr Q10H IV Last administered on 03/25/17t 11:34; Admin Dose 100 MLS/HR; Start 03/25/17 at 07:02 Acetaminophen/ Hydrocodone Bitart ([place] (5/325)) 1 tab Q4H PRN PO PAIN LEVEL 1 -5; Start 03/26/17 at 09:30; Status Future hold Hydromorphone HCl 0.2 mg 0.2 mg Q1H PRN IV BREAKTHROUGH PAIN; Start 03/25/17 at 07:30 Cefazolin Sodium (Ancef 1 Gm/50 ml (Pmx)) 50 ml @ 100 mls/hr Q8H IVPB Last administered on 03/25/17 18:01; Admin Dose 100 MLS/HR; Start 03/25/17 at 08: 00; Stop 03/26/17 at 00:29 Ondansetron HCl (Zofran Inj) 4 mg Q6H PRN IV NAUSEA AND/OR VOMITING; Start at 07:30 Bisacodyl (Dulcolax Supp) 10 mg DAILY PRN VA CONSTIPATION; Start 03/25/17 at 07:30 Docusate Sodium (Colace) 100 mg BID PO ; Start 03/25/17 at 09:00 Pantoprazole (Protonix Iv) 40 mg DAILY@06 IV ; Start 03/26/17 at 06:00 Al Hydrox/Mg Hydrox/Simethicone (Mag-Al Plus) 15 ml Q6H PRN PO CONSTIPATION/ DYSPEPSIA; Start 03/25/17 at 07:30 Acetaminophen (Tylenol Tab) 650 mg Q4H PRN PO MCKENZIE OR TEMP GREATER THAN 101.3F; Start 03/25/17 at 07:30 Ferrous Sulfate (Ferrous Sulfate (Ec)) 325 mg TID PO Last administered on 03/25 13:26; Admin Dose 325 MG; Start 03/25/17 at 09:00 Ascorbic Acid (Vitamin C) 1,000 mg DAILY PO ; Start 03/25/17 at 09:00 Cyclobenzaprine HCl (Flexeril) 5 mg TID PRN PO MUSCLE SPASMS; Start 03/25/17 at 07:30 Phenol (Cepastat Lozenge) 1 lozenge PRN PRN MT SORE THROAT; Start 03/25/17 at 07:30 Diphenhydramine HCl (Benadryl) 25 mg Q6H PRN PO ITCHING; Start 03/25/17 at 07: 30 Diphenhydramine HCl (Benadryl) 25 mg Q6H PRN IV ITCHING; Start 03/25/17 at 07: 30 Naloxone HCl (Narcan) 0.2 mg Q2M PRN IV RR 8 BREATHS/MIN OR LESS; Start at 07:30 Hydromorphone HCl (Dilaudid BILL ADJUSTER) BILL ADJUSTER to be started in PACU Q4PCA IV ; Start at 07:30; Stop 03/26/17 at 10:00 Miscellaneous Information 1. Hold BILL ADJUSTER at 1,000... BILL ADJUSTER IV ; Start 03/25/17 at 07 :30 Acetaminophen/ Hydrocodone Bitart ([place] (5/325)) 2 tab Q4H PRN PO PAIN LEVEL 6 -10; Start 03/26/17 at 09:30 JOSETTE LANCASTER MD Mar 25, 2017 18:20
[2017-03-25] MEDS ORDERED: BISACODYL (EC) 5 MG TAB PO PRN (18:30)
[2017-03-25] MEDS ORDERED: ARTIFICIAL TEARS BOTH EYES PRN (18:30)
[2017-03-25] MEDS: ATORVASTATIN 10 MG TAB PO SCH (20:38)
[2017-03-25] MEDS: FISH OIL 1,000 MG CAP PO SCH (20:38)
[2017-03-26] VITALS (17 sets, daily range): BP systolic 112–152; BP diastolic 51–75; PULSE 59–80; RESP 14–31
[2017-03-26] MEDS: CEFAZOLIN 1 GM/50 ML (PMX) 50 ML IVPB SCH (00:09)
[2017-03-26 05:44] LABS: BASOPHILS % 0.1 % (0.0-2.0); HEMATOCRIT 34.5 % (42.0-52.0); HEMOGLOBIN 11.3 g/dl (14.0-18.0); LYMPHOCYTES # 0.9 10^3/ul (0.8-2.9); LYMPHOCYTES % 6.3 % (15.0-51.0); MEAN CORPUSCULAR HEMOGLOBIN 30.6 pg (29.0-33.0); MEAN CORPUSCULAR HGB CONC 32.8 g/dl (32.0-37.0); MEAN CORPUSCULAR VOLUME 93.5 fl (82.0-101.0); MEAN PLATELET VOLUME 8.7 fl (7.4-10.4); MONOCYTE # 0.8 10^3/ul (0.3-0.9); MONOCYTES % 5.4 % (0.0-11.0); NEUTROPHIL # 12.4 10^3/ul (1.6-7.5); NEUTROPHILS % 87.7 % (39.0-77.0); PLATELET COUNT 264 10^3/UL (140-415); RED BLOOD COUNT 3.69 10^6/ul (4.70-6.10); RED CELL DISTRIBUTION WIDTH 13.1 % (11.5-14.5); WHITE BLOOD COUNT 14.1 10^3/ul (4.8-10.8)
[2017-03-26] MEDS ORDERED: PANTOPRAZOLE 40 MG INJ IV SCH (06:00)
[2017-03-26 06:21] LABS: CALCIUM 8.7 mg/dl (8.4-10.2); CREATININE 0.94 mg/dl (0.61-1.24); POTASSIUM 4.3 mmol/L (3.5-5.1)
[2017-03-26] MEDS: D5W-0.45 NACL + KCL 20 MEQ 1,000 ML IV SCH (08:35)
[2017-03-26] MEDS: FISH OIL 1,000 MG CAP PO SCH ×2 (08:36→20:03)
[2017-03-26] MEDS: AMLODIPINE 5 MG TAB PO SCH (08:36)
[2017-03-26] MEDS: FERROUS SULFATE (EC) 325 MG TAB PO SCH ×3 (08:36→20:03)
[2017-03-26] MEDS: DOCUSATE SODIUM 100 MG CAP PO SCH ×2 (08:36→20:04)
[2017-03-26] MEDS: ASCORBIC ACID 500 MG TAB PO SCH (08:36)
--- NOTE | 2017-03-26 08:49 | PN ---
Date/Time of Note Date/Time of Note DATE: 03/26/17 TIME: 08:45 Assessment/Plan VTE Prophylaxis VTE Prophylaxis Intervention: SCD's Lines/Catheters IV Catheter Type (from Nrsg): Peripheral IV Urinary Cath still in place: Yes Subjective 24 Hr Interval Summary Free Text/Dictation doing well post op, still foot drop, not much pain, no confusion vs ok alert, lungs clear, hr ok no edema [facility] hope for aru acceptance re post op rfadiculopathyu, foot drop, bilat shoulder cuff tears am labs ok, voiding Exam/Review of Systems Vital Signs Vitals Vital Signs Date Time Temp Pulse Resp B/P Pulse Ox O2 Delivery O2 Flow Rate FiO2 03/26/17 07:00 77 19 112/67 100 Room Air 03/26/17 04:00 98.6 03/25/17 11:15 8.0 Intake and Output 03/25/17 03/25/17 03/26/17 15:00 23:00 07:00 Intake Total 1550 ml 1070 ml 820 ml Output Total 605 ml 655 ml 800 ml Balance 945 ml 415 ml 20 ml Results Result Diagram: 03/26/17 0506 03/26/17 0506 Results 24 hrs Laboratory Tests Test 03/26/17 05:06 White Blood Count 14.1 #H Red Blood Count 3.69 #L Hemoglobin 11.3 #L Hematocrit 34.5 L Mean Corpuscular Volume 93.5 Mean Corpuscular Hemoglobin 30.6 Mean Corpuscular Hemoglobin Concent 32.8 Red Cell Distribution Width 13.1 Platelet Count 264 # Mean Platelet Volume 8.7 Neutrophils % 87.7 H Lymphocytes % 6.3 L Monocytes % 5.4 Eosinophils % 0.0 Basophils % 0.1 Nucleated Red Blood Cells % 0.0 Neutrophils # 12.4 H Lymphocytes # 0.9 Monocytes # 0.8 Eosinophils # 0.0 Basophils # 0.0 Nucleated Red Blood Cells # 0.0 Sodium Level 138 Potassium Level 4.3 Chloride Level 107 Carbon Dioxide Level 26 Anion Gap 9 Blood Urea Nitrogen 15 Creatinine 0.94 Glucose Level 117 Calcium Level 8.7 Magnesium Level 2.0 Medications Medications Current Medications Potassium Chloride/Dextrose/ Sod Cl (D5-1/2ns + KCl 20 Meq) 1,000 ml @ 100 mls/ hr Q10H IV Last administered on 03/25/17 21:52; Admin Dose 100 MLS/HR; Start 03/25/17 at 07:02 Acetaminophen/ Hydrocodone Bitart ([place] (5/325)) 1 tab Q4H PRN PO PAIN LEVEL 1 -5; Start 03/26/17 at 09:30; Status Future hold Hydromorphone HCl (Dilaudid) 0.2 mg Q1H PRN IV BREAKTHROUGH PAIN; Start at 07:30 Ondansetron HCl (Zofran Inj) 4 mg Q6H PRN IV NAUSEA AND/OR VOMITING; Start at 07:30 Bisacodyl (Dulcolax Supp) 10 mg DAILY PRN [place] CONSTIPATION; Start 03/25/17 at 07:30 Docusate Sodium (Colace) 100 mg BID PO Last administered on 03/26/17 08:36; Admin Dose 100 MG; Start 03/25/17 at 09:00 Pantoprazole (Protonix Iv) 40 mg DAILY@06 IV Last administered on 03/26/17 06 :20; Admin Dose 40 MG; Start 03/26/17 at 06:00 Al Hydrox/Mg Hydrox/Simethicone (Mag-Al Plus) 15 ml Q6H PRN PO CONSTIPATION/ DYSPEPSIA; Start 03/25/17 at 07:30 Ferrous Sulfate (Ferrous Sulfate (Ec)) 325 mg TID PO Last administered on 03/26 08:36; Admin Dose 325 MG; Start 03/25/17 at 09:00 Cyclobenzaprine HCl (Flexeril) 5 mg TID PRN PO MUSCLE SPASMS; Start 03/25/17 at 07:30 Phenol (Cepastat Lozenge) 1 lozenge PRN PRN [place] SORE THROAT; Start 03/25/17 at 07:30 Diphenhydramine HCl (Benadryl) 25 mg Q6H PRN PO ITCHING; Start 03/25/17 at 07: 30 Diphenhydramine HCl (Benadryl) 25 mg Q6H PRN IV ITCHING; Start 03/25/17 at 07: 30 Naloxone HCl (Narcan) 0.2 mg Q2M PRN IV RR 8 BREATHS/MIN OR LESS; Start at 07:30 Hydromorphone HCl (Dilaudid KIDS CLUB ATTENDANT) KIDS CLUB ATTENDANT to be started in PACU Q4PCA IV ; Start at 07:30; Stop 03/26/17 at 10:00 Miscellaneous Information 1. Hold KIDS CLUB ATTENDANT at 1,000... KIDS CLUB ATTENDANT IV ; Start 03/25/17 at 07 :30 Acetaminophen/ Hydrocodone Bitart ([place] (5/325)) 2 tab Q4H PRN PO PAIN LEVEL 6 -10; Start 03/26/17 at 09:30 Acetaminophen (Tylenol Tab) 650 mg Q4H PRN PO PAIN AND OR ELEVATED TEMP; Start 03/25/17 at 18:30 Amlodipine Besylate (Norvasc) 5 mg DAILY PO Last administered on 03/26/17 08: 36; Admin Dose 5 MG; Start 03/26/17 at 09:00 Ascorbic Acid (Vitamin C) 500 mg DAILY PO Last administered on 03/26/17 08:36 ; Admin Dose 500 MG; Start 03/26/17 at 09:00 Atorvastatin Calcium (Lipitor) 10 mg QHS PO Last administered on 03/25/17 20: 38; Admin Dose 10 MG; Start 03/25/17 at 21:00 Bisacodyl (Dulcolax) 10 mg DAILY PRN PO CONSTIPATION; Start 03/25/17 at 18:30 Fish Oil (Fish Oil) 2,000 mg BID PO Last administered on 03/26/17 08:36; Admin Dose 2,000 MG; Start 03/25/17 at 21:00 Eye Lubricant (Artificial Tears Oph) 2 drop Q6H PRN BOTH EYES DRY EYES; Start 03/26/17 at 10:00 EVERTON MCARTHUR MD Mar 26, 2017 08:49
[2017-03-26] MEDS ORDERED: HYDROCODONE/APAP (5/325) TAB PO PRN ×2 (09:30)
[2017-03-26] MEDS ORDERED: ARTIFICIAL TEARS 15 ML OPH BOTH EYES PRN (10:00)
--- NOTE | 2017-03-26 10:53 | PN ---
Date/Time of Note Date/Time of Note DATE: 03/26/17 TIME: 10:52 Assessment/Plan Lines/Catheters IV Catheter Type (from Nrsg): Saline Lock Cain in Place (from Nrsg): Yes Assessment/Plan Assessment/Plan Status post revision lumbar decompression The patient is doing well. Had mild hallucination this morning. Continue with physical therapy. We will transferred to [facility] when cleared by thermodynamic physicist. Acute rehab consult pending Subjective 24 Hr Interval Summary Doing well. Exam/Review of Systems Vital Signs Vitals Vital Signs Date Time Temp Pulse Resp B/P Pulse Ox O2 Delivery O2 Flow Rate FiO2 03/26/17 10:00 61 20 127/60 98 Room Air 03/26/17 08:00 98.1 03/25/17 11:15 8.0 Intake and Output 03/25/17 03/25/17 03/26/17 15:00 23:00 07:00 Intake Total 1550 ml 1070 ml 820 ml Output Total 605 ml 655 ml 800 ml Balance 945 ml 415 ml 20 ml Exam Free Text/Dictation Left foot drop same as preop Results Result Diagram: 03/26/17 0506 03/26/17 0506 TIFFANY RUIZ MD Mar 26, 2017 10:53
--- NOTE | 2017-03-26 17:16 | PN ---
Date/Time of Note Date/Time of Note DATE: 03/26/17 TIME: 17:15 Assessment/Plan VTE Prophylaxis VTE Prophylaxis Intervention: SCD's Lines/Catheters IV Catheter Type (from Nrsg): Saline Lock Urinary Cath still in place: Yes Subjective 24 Hr Interval Summary Free Text/Dictation has been accepted to rehab unit here at [facility]. can transfer when ok by ortho Exam/Review of Systems Vital Signs Vitals Vital Signs Date Time Temp Pulse Resp B/P Pulse Ox O2 Delivery O2 Flow Rate FiO2 03/26/17 15:00 80 14 122/66 100 Room Air 03/26/17 12:00 98.0 03/25/17 11:15 8.0 Intake and Output 03/25/17 03/25/17 03/26/17 15:00 23:00 07:00 Intake Total 1550 ml 1070 ml 820 ml Output Total 605 ml 655 ml 800 ml Balance 945 ml 415 ml 20 ml Results Result Diagram: 03/26/17 0506 03/26/17 0506 Results 24 hrs Laboratory Tests Test 03/26/17 05:06 White Blood Count 14.1 #H Red Blood Count 3.69 #L Hemoglobin 11.3 #L Hematocrit 34.5 L Mean Corpuscular Volume 93.5 Mean Corpuscular Hemoglobin 30.6 Mean Corpuscular Hemoglobin Concent 32.8 Red Cell Distribution Width 13.1 Platelet Count 264 # Mean Platelet Volume 8.7 Neutrophils % 87.7 H Lymphocytes % 6.3 L Monocytes % 5.4 Eosinophils % 0.0 Basophils % 0.1 Nucleated Red Blood Cells % 0.0 Neutrophils # 12.4 H Lymphocytes # 0.9 Monocytes # 0.8 Eosinophils # 0.0 Basophils # 0.0 Nucleated Red Blood Cells # 0.0 Sodium Level 138 Potassium Level 4.3 Chloride Level 107 Carbon Dioxide Level 26 Anion Gap 9 Blood Urea Nitrogen 15 Creatinine 0.94 Glucose Level 117 Calcium Level 8.7 Magnesium Level 2.0 Medications Medications Current Medications Acetaminophen/ Hydrocodone Bitart ([place] (5/325)) 1 tab Q4H PRN PO PAIN LEVEL 1 -5; Start 03/26/17 at 09:30; Status Future hold Ondansetron HCl (Zofran Inj) 4 mg Q6H PRN IV NAUSEA AND/OR VOMITING; Start at 07:30 Bisacodyl (Dulcolax Supp) 10 mg DAILY PRN [place] CONSTIPATION; Start 03/25/17 at 07:30 Docusate Sodium (Colace) 100 mg BID PO Last administered on 03/26/17 08:36; Admin Dose 100 MG; Start 03/25/17 at 09:00 Al Hydrox/Mg Hydrox/Simethicone (Mag-Al Plus) 15 ml Q6H PRN PO CONSTIPATION/ DYSPEPSIA; Start 03/25/17 at 07:30 Ferrous Sulfate (Ferrous Sulfate (Ec)) 325 mg TID PO Last administered on 03/26 12:48; Admin Dose 325 MG; Start 03/25/17 at 09:00 Cyclobenzaprine HCl (Flexeril) 5 mg TID PRN PO MUSCLE SPASMS; Start 03/25/17 at 07:30 Phenol (Cepastat Lozenge) 1 lozenge PRN PRN [place] SORE THROAT; Start 03/25/17 at 07:30 Diphenhydramine HCl (Benadryl) 25 mg Q6H PRN PO ITCHING; Start 03/25/17 at 07: 30 Diphenhydramine HCl (Benadryl) 25 mg Q6H PRN IV ITCHING; Start 03/25/17 at 07: 30 Naloxone HCl (Narcan) 0.2 mg Q2M PRN IV RR 8 BREATHS/MIN OR LESS; Start at 07:30 Acetaminophen (Tylenol Tab) 650 mg Q4H PRN PO PAIN AND OR ELEVATED TEMP; Start 03/25/17 at 18:30 Amlodipine Besylate (Norvasc) 5 mg DAILY PO Last administered on 03/26/17 08: 36; Admin Dose 5 MG; Start 03/26/17 at 09:00 Ascorbic Acid (Vitamin C) 500 mg DAILY PO Last administered on 03/26/17 08:36 ; Admin Dose 500 MG; Start 03/26/17 at 09:00 Atorvastatin Calcium (Lipitor) 10 mg QHS PO Last administered on 03/25/17 20: 38; Admin Dose 10 MG; Start 03/25/17 at 21:00 Bisacodyl (Dulcolax) 10 mg DAILY PRN PO CONSTIPATION; Start 03/25/17 at 18:30 Fish Oil (Fish Oil) 2,000 mg BID PO Last administered on 03/26/17t 08:36; Admin Dose 2,000 MG; Start 03/25/17 at 21:00 Eye Lubricant (Artificial Tears Oph) 2 drop Q6H PRN BOTH EYES DRY EYES; Start 03/26/17 at 10:00 Pantoprazole (Protonix Tab) 40 mg DAILY@06 PO ; Start 03/27/17 at 06:00 EVERTON MCARTHUR MD Mar 26, 2017 17:16
[2017-03-26] MEDS: ATORVASTATIN 10 MG TAB PO SCH (20:03)
[2017-03-27 02:48] VITALS: BP 119/70; RESP 18
[2017-03-27] MEDS ORDERED: PANTOPRAZOLE (EC) 40 MG TAB PO SCH (06:00)
[2017-03-27 06:32] LABS: BASOPHILS % 0.2 % (0.0-2.0); EOSINOPHILS # 0.1 10^3/ul (0.0-0.5); EOSINOPHILS % 0.7 % (0.0-7.0); HEMATOCRIT 38.4 % (42.0-52.0); HEMOGLOBIN 12.5 g/dl (14.0-18.0); LYMPHOCYTES # 1.2 10^3/ul (0.8-2.9); LYMPHOCYTES % 10.5 % (15.0-51.0); MEAN CORPUSCULAR HEMOGLOBIN 30.5 pg (29.0-33.0); MEAN CORPUSCULAR HGB CONC 32.6 g/dl (32.0-37.0); MEAN CORPUSCULAR VOLUME 93.7 fl (82.0-101.0); MEAN PLATELET VOLUME 8.8 fl (7.4-10.4); MONOCYTES % 8.1 % (0.0-11.0); NEUTROPHIL # 9.5 10^3/ul (1.6-7.5); NEUTROPHILS % 80.1 % (39.0-77.0); PLATELET COUNT 282 10^3/UL (140-415); RED CELL DISTRIBUTION WIDTH 13.3 % (11.5-14.5); WHITE BLOOD COUNT 11.9 10^3/ul (4.8-10.8)
[2017-03-27 07:01] LABS: CREATININE 0.94 mg/dl (0.61-1.24); MAGNESIUM 1.9 mg/dl (1.7-2.5)
--- NOTE | 2017-03-27 07:48 | DS ---
Date/Time of Note Date/Time of Note DATE: 03/27/17 TIME: 07:47 Discharge Summary Admission/Discharge Info Admit Date/Time Mar 25, 2017 at 05:18 Discharge Date/Time March 27 Patient Condition: Good Procedures Revision lumbar decompression Hospital Course Patient was admitted to the ICU after undergoing the above procedure. On postoperative day 1 he was transferred to the orthopedic rain. On postoperative day 2 he was deemed stable to be transferred to acute rehab. Follow-up was arranged with the undersigned Home Meds Reported Medications Mineral Oil (Fleet Mineral Oil Enema) 133 Ml Enema, 133 ML RC DAILY Y for CONSTIPATION, ENEMA 03/25/17 Bisacodyl* (Dulcolax*) 5 Mg Tablet.dr, 10 MG PO DAILY Y for CONSTIPATION, TAB 03/25/17 Acetaminophen* (Acetaminophen*) 325 Mg Tablet, 650 MG PO Q4H Y for PAIN AND OR ELEVATED TEMP, #30 TAB 03/25/17 Magnesium Hydroxide* (Milk Of Magnesia*) 400 Mg/5 Ml Oral.susp, 30 ML PO DAILY for CONSTIPATION, ML 03/25/17 Sennosides* (Senna Lax*) 8.6 Mg Tablet, 2 TAB PO DAILY Y for CONSTIPATION, TAB 03/25/17 [Artificial Tears] No Conflict Check, 2 DROP BOTH EYES Q6 Y for DRY EYES 03/25/17 Ascorbic Acid (Vitamin C) 500 Mg Tab, 500 MG PO DAILY, TAB 03/25/17 Amlodipine Besylate* (Norvasc*) 5 Mg Tablet, 5 MG PO DAILY for HTN, TAB 03/03/17 Tramadol Hcl* (Ultram*) 50 Mg Tablet, 50 MG PO Q6H Y for PAIN, TAB 03/03/17 Fish Oil/[place]-3 Fatty Acids (Fish Oil 1,000 Mg Capsule) 1 Cap Capsule 11/04/10 Multivitamins/Minerals (Centrum Silver) 1 Tab Tab 11/04/10 Atorvastatin (Lipitor) 10 Mg Tablet, 10 MG PO QHS 11/03/10 Primary Care Provider Alexey Hays MD Pending Labs Laboratory Tests Test 03/27/17 04:58 White Blood Count 11.910^3/ul (4.8-10.8) Red Blood Count 4.1010^6/ul (4.70-6.10) Hemoglobin 12.5g/dl (14.0-18.0) Hematocrit 38.4% (42.0-52.0) Mean Corpuscular Volume 93.7fl (82.0-101.0) Mean Corpuscular Hemoglobin 30.5pg (29.0-33.0) Mean Corpuscular Hemoglobin Concent 32.6g/dl (32.0-37.0) Red Cell Distribution Width 13.3% (11.5-14.5) Platelet Count 21630^3/UL (140-415) Mean Platelet Volume 8.8fl (7.4-10.4) Neutrophils % 80.1% (39.0-77.0) Lymphocytes % 10.5% (15.0-51.0) Monocytes % 8.1% (0.0-11.0) Eosinophils % 0.7% (0.0-7.0) Basophils % 0.2% (0.0-2.0) Nucleated Red Blood Cells % 0.0/100WBC (0.0-0.0) Neutrophils # 9.510^3/ul (1.6-7.5) Lymphocytes # 1.210^3/ul (0.8-2.9) Monocytes # 1.010^3/ul (0.3-0.9) Eosinophils # 0.110^3/ul (0.0-0.5) Basophils # 0.010^3/ul (0.0-0.1) Nucleated Red Blood Cells # 0.010^3/ul (0.0-0.0) Sodium Level 141mmol/L (135-144) Potassium Level 4.0mmol/L (3.5-5.1) Chloride Level 104mmol/L (97-110) Carbon Dioxide Level 30mmol/L (21-31) Anion Gap 11 (8-16) Blood Urea Nitrogen 13mg/dl (7-20) Creatinine 0.94mg/dl (0.61-1.24) Glucose Level 82mg/dl (70-220) Calcium Level 9.0mg/dl (8.4-10.2) Magnesium Level 1.9mg/dl (1.7-2.5) TIFFANY RUIZ MD Mar 27, 2017 07:48
[2017-03-27 08:19] VITALS: BP 140/64; RESP 18
[2017-03-27] MEDS: FISH OIL 1,000 MG CAP PO SCH (08:43)
[2017-03-27] MEDS: AMLODIPINE 5 MG TAB PO SCH (08:43)
[2017-03-27] MEDS: ASCORBIC ACID 500 MG TAB PO SCH (08:43)
[2017-03-27] MEDS: DOCUSATE SODIUM 100 MG CAP PO SCH (08:43)
[2017-03-27] MEDS: FERROUS SULFATE (EC) 325 MG TAB PO SCH (08:43)
== END 2017-03-27 12:20 | DRG 520 ==
LOC: REC 05:18 → ICU 10:52 → MS1 03-26 15:51
PROVIDERS: ADMIT Specialist; ATTEND Specialist
PROC: 01NB0ZZ Release Lumbar Nerve, Open Approach (ICD-10-PCS; 2017-03-25)
PROC: 0SB20ZZ Excision of Lumbar Vertebral Disc, Open Approach (ICD-10-PCS; principal; 2017-03-25 07:00)
DX: M54.17 Radiculopathy, lumbosacral region (principal); I10 Essential (primary) hypertension; M21.372 Foot drop, left foot; M51.16 Intervertebral disc disorders with radiculopathy, lumbar region; M48.07 Spinal stenosis, lumbosacral region; M25.552 Pain in left hip; Z85.46 Personal history of malignant neoplasm of prostate
CPT/HCPCS: 72020; 80048; 83735; 85025; 86999; 87081; 88304; 97116; 97163; 97530; C9113; J0131; J0690; J1100; J1644; J2370; J2405; J2765; J3010; J3480

== ENCOUNTER 2017-03-27 12:20 | Inpatient (IN) | payer MEDICARE, OTHER ==
[~2017-03-27] VITALS: Ht 167.6 cm; Wt 68.2 kg
[~2017-03-27 12:20] MED LIST changes: +ACET325T45 PO; +ARTIFICIAL TEARS BOTH EYES; +ASC500 PO; +BISA-57 PO; +MAGN400O4 PO; +MINE133E23 RC; +SENN-53 PO
[2017-03-27 13:12] VITALS: Ht 167.6 cm; Wt 68.2 kg
[2017-03-27 13:50] VITALS: BP 132/73; PULSE 74; RESP 18
[2017-03-27] MEDS ORDERED: LACTULOSE 30ML CUP PO PRN (14:00)
[2017-03-27] MEDS ORDERED: BISACODYL 10 MG SUPP PR PRN ×2 (14:00→17:30)
[2017-03-27] MEDS: ACETAMINOPHEN 325 MG TAB PO PRN (15:19)
[2017-03-27] MEDS ORDERED: CEPASTAT LOZENGE MT PRN (16:30)
[2017-03-27] MEDS ORDERED: ARTIFICIAL TEARS 15 ML OPH BOTH EYES PRN (17:30)
[2017-03-27] MEDS ORDERED: BISACODYL (EC) 5 MG TAB PO PRN (17:30)
[2017-03-27] MEDS ORDERED: ACETAMINOPHEN 325 MG TAB PO PRN (17:30)
[2017-03-27 17:46] LABS: ADD UMIC YES; UR ASCORBIC ACID 40 mg/dL (NEGATIVE); UR BACTERIA MANY /HPF (NONE SEEN); UR BILIRUBIN (Dip) NEGATIVE (NEGATIVE); UR BLOOD (Dip) 3+ mg/dL (NEGATIVE); UR CLARITY CLOUDY (CLEAR); UR COLOR YELLOW (YELLOW); UR GLUCOSE (Dip) NEGATIVE (NEGATIVE); UR KETONES (Dip) NEGATIVE (NEGATIVE); UR LEUKOCYTE ESTERASE (Dip) 3+ Leu/ul (NEGATIVE); UR NITRITE (Dip) POSITIVE (NEGATIVE); UR RBC 15 /HPF (0-5); UR SPECIFIC GRAVITY (Dip) 1.008 (1.003-1.030); UR TOTAL PROTEIN (Dip) NEGATIVE (NEGATIVE); UR UROBILINOGEN (Dip) NEGATIVE (NEGATIVE)
[2017-03-27 20:00] VITALS: BP 124/74; PULSE 82; RESP 16
[2017-03-27] MEDS: FISH OIL 1,000 MG CAP PO SCH (20:52)
[2017-03-27] MEDS: ATORVASTATIN 10 MG TAB PO SCH (20:52)
[2017-03-27] MEDS: DOCUSATE SODIUM 100 MG CAP PO SCH (20:53)
[2017-03-27] MEDS: SENNA TAB PO SCH (20:53)
[2017-03-28 02:00] VITALS: BP 140/69; PULSE 76; RESP 16
[2017-03-28 07:38] LABS: BASOPHILS % 0.3 % (0.0-2.0); EOSINOPHILS # 0.2 10^3/ul (0.0-0.5); EOSINOPHILS % 1.8 % (0.0-7.0); HEMOGLOBIN 12.4 g/dl (14.0-18.0); LYMPHOCYTES # 1.5 10^3/ul (0.8-2.9); LYMPHOCYTES % 14.6 % (15.0-51.0); MEAN CORPUSCULAR HEMOGLOBIN 30.7 pg (29.0-33.0); MEAN CORPUSCULAR HGB CONC 32.6 g/dl (32.0-37.0); MEAN CORPUSCULAR VOLUME 94.1 fl (82.0-101.0); MEAN PLATELET VOLUME 8.6 fl (7.4-10.4); MONOCYTE # 0.7 10^3/ul (0.3-0.9); MONOCYTES % 6.9 % (0.0-11.0); NEUTROPHILS % 76.1 % (39.0-77.0); PLATELET COUNT 270 10^3/UL (140-415); RED BLOOD COUNT 4.04 10^6/ul (4.70-6.10); RED CELL DISTRIBUTION WIDTH 13.4 % (11.5-14.5); WHITE BLOOD COUNT 10.5 10^3/ul (4.8-10.8)
[2017-03-28 07:44] LABS: ALBUMIN/GLOBULIN RATIO 0.93; BILIRUBIN,INDIRECT 0.7 mg/dl (0-1.1); BILIRUBIN,TOTAL 0.7 mg/dl (0.2-1.3); CALCIUM 9.3 mg/dl (8.4-10.2); CREATININE 0.98 mg/dl (0.61-1.24); POTASSIUM 4.2 mmol/L (3.5-5.1); TOTAL PROTEIN 6.2 g/dl (6.1-8.1)
[2017-03-28 07:57] VITALS: BP 117/64; PULSE 77; RESP 20
[2017-03-28] MEDS: HYDROCODONE/APAP (5/325) TAB PO PRN ×2 (08:52→12:31)
[2017-03-28] MEDS: FISH OIL 1,000 MG CAP PO SCH ×2 (08:52→20:19)
[2017-03-28] MEDS: ASCORBIC ACID 500 MG TAB PO SCH (08:52)
[2017-03-28] MEDS: DOCUSATE SODIUM 100 MG CAP PO SCH ×2 (08:52→20:19)
[2017-03-28] MEDS: AMLODIPINE 5 MG TAB PO SCH (08:53)
--- NOTE | 2017-03-28 08:53 | PN ---
Date/Time of Note Date/Time of Note DATE: 03/28/17 TIME: 08:50 Assessment/Plan VTE Prophylaxis VTE Prophylaxis Intervention: ambulation Lines/Catheters IV Catheter Type (from Nrsg): Saline Lock Urinary Cath still in place: No Subjective 24 Hr Interval Summary Free Text/Dictation now in aru, up in chair having breakfast, no complaint of pain issue of l foot drop and bilat shoulder cuff tears with poor upper ext function. for full pt, ot rehab with goal of home safety and poss return for shoulder surgery depending on how he does.occ delusional episodes in hospital, but no apparent cognitive decline prior to hosp. alert, lungs clear, hr ok, no edema labs , vs ok, tho wbc in urine to check culture. Exam/Review of Systems Vital Signs Vitals Vital Signs Date Time Temp Pulse Resp B/P Pulse Ox O2 Delivery O2 Flow Rate FiO2 03/28/17 07:57 98.7 77 20 117/64 95 Room Air Intake and Output 03/27/17 03/27/17 03/28/17 15:00 23:00 07:00 Intake Total 400 ml 120 ml 500 ml Output Total 200 ml 200 ml 500 ml Balance 200 ml -80 ml 0 ml Results Result Diagram: 03/28/17 0639 03/28/17 0639 Results 24 hrs Laboratory Tests Test 03/27/17 13:30 03/28/17 06:39 Urine Color YELLOW Urine Clarity CLOUDY A Urine pH 6.0 Urine Specific [place] 1.008 Urine Ketones NEGATIVE Urine Nitrite POSITIVE A Urine Bilirubin NEGATIVE Urine Urobilinogen NEGATIVE Urine Leukocyte Esterase 3+ H Urine Microscopic RBC 15 H Urine Microscopic WBC > 182 H Urine Bacteria MANY A Urine Hemoglobin 3+ H Urine Glucose NEGATIVE Urine Total Protein NEGATIVE White Blood Count 10.5 Red Blood Count 4.04 L Hemoglobin 12.4 L Hematocrit 38.0 L Mean Corpuscular Volume 94.1 Mean Corpuscular Hemoglobin 30.7 Mean Corpuscular Hemoglobin Concent 32.6 Red Cell Distribution Width 13.4 Platelet Count 270 Mean Platelet Volume 8.6 Neutrophils % 76.1 Lymphocytes % 14.6 L Monocytes % 6.9 Eosinophils % 1.8 Basophils % 0.3 Nucleated Red Blood Cells % 0.0 Neutrophils # 8.0 H Lymphocytes # 1.5 Monocytes # 0.7 Eosinophils # 0.2 Basophils # 0.0 Nucleated Red Blood Cells # 0.0 Sodium Level 139 Potassium Level 4.2 Chloride Level 102 Carbon Dioxide Level 31 Anion Gap 10 Blood Urea Nitrogen 16 Creatinine 0.98 Glucose Level 77 Calcium Level 9.3 Total Bilirubin 0.7 Direct Bilirubin 0.00 Indirect Bilirubin 0.7 Aspartate Amino Transf (AST/SGOT) 17 Alanine Aminotransferase (ALT/SGPT) 26 Alkaline Phosphatase 106 Total Protein 6.2 Albumin 3.0 L Globulin 3.20 Albumin/Globulin Ratio 0.93 Medications Medications Current Medications Docusate Sodium (Colace) 100 mg BID PO ; Start 03/27/17 at 21:00 Senna (Senokot) 1 tab HS PO ; Start 03/27/17 at 21:00 Magnesium Hydroxide (Milk Of Mag) 30 ml BID PRN PO CONSTIPATION; Start at 14:00 Lactulose (Enulose) 20 gm DAILY PRN PO CONSTIPATION; Start 03/27/17 at 14:00 Bisacodyl (Dulcolax Supp) 10 mg DAILY PRN [place] CONSTIPATION; Start 03/27/17 at 14:00 Acetaminophen (Tylenol Tab) 650 mg Q4H PRN PO PAIN Last administered on 15:19; Admin Dose 650 MG; Start 03/27/17 at 14:00 Acetaminophen/ Hydrocodone Bitart ([place] (5/325)) 1 tab Q4H PRN PO PAIN LEVEL 1 -5; Start 03/27/17 at 16:30 Phenol (Cepastat Lozenge) 1 lozenge PRN PRN [place] SORE THROAT; Start 03/27/17 at 16:30 Fish Oil (Fish Oil) 2,000 mg BID PO Last administered on 03/27/17 20:52; Admin Dose 2,000 MG; Start 03/27/17 at 21:00 Amlodipine Besylate (Norvasc) 5 mg DAILY PO ; Start 03/28/17 at 09:00 Ascorbic Acid (Vitamin C) 500 mg DAILY PO ; Start 03/28/17 at 09:00 Atorvastatin Calcium (Lipitor) 10 mg QHS PO Last administered on 03/27/17 20: 52; Admin Dose 10 MG; Start 03/27/17 at 21:00 Bisacodyl (Dulcolax) 10 mg DAILY PRN PO CONSTIPATION; Start 03/27/17 at 17:30 Eye Lubricant (Artificial Tears Oph) 2 drop Q6H PRN BOTH EYES DRY EYES; Start 03/27/17 at 17:30 EVERTON MCARTHUR MD Mar 28, 2017 08:53
--- NOTE | 2017-03-28 12:36 | CONS ---
DATE OF ADMISSION: 03/27/2017 DATE OF CONSULTATION: 03/28/2017 REHABILITATION POST ADMISSION PHYSICIAN EVALUATION REHABILITATION IMPAIRMENT CATEGORY: Lumbar radiculopathy with left foot drop, status post revision lumbar decompressive laminectomy. ACTIVE COMORBIDITIES: 1. Acute pain syndrome. 2. Recent left rotator cuff tear. 3. Right rotator cuff tear. 4. Hypertension. 5. Glaucoma. 6. Hyperlipidemia. 7. Impaired hearing. 8. Impairments in self-care and mobility. HISTORY OF PRESENT ILLNESS: The patient is a pleasant 87-year-old gentleman with a history of multi ple medical comorbidities including bilateral rotator cuff tears with decreased range of motion, rig ht worse than left, who had been noting severe increasing pain in addition to left foot drop despite conservative measures. The patient was noted to have multilevel spinal stenosis. The patient unde rwent lumbosacral decompressive surgery. His postoperative course has been notable for pain, and si gnificant impairments in self-care and mobility as compared to baseline. The patient has been clear ed to transfer to the rehabilitation unit for comprehensive interdisciplinary rehab care. FUNCTIONAL HISTORY: Prior to recent events, he was independent in self-care tasks and mobility. Cu rrently, he requires maximal assist for self-care and mobility tasks. I have reviewed the preadmission screen and patient's current functional status is consistent with t he preadmission screen. SOCIAL HISTORY: The patient lives at home with a few stair steps to [facility] and hopes to return th [facility] upon discharge. PAST MEDICAL HISTORY: 1. Hypertension. 2. Prostate carcinoma. 3. Bilateral rotator cuff tears with most recent approximately 3 weeks ago requiring hospitalizatio n after his fall. 4. Glaucoma. 5. Hyperlipidemia. CURRENT MEDICATIONS: 1. Norvasc 5 mg p.o. every day. 2. Artificial tears. 3. Vitamin C. 4. Lipitor 10 mg p.o. every day. 5. Senokot 2 tabs p.r.n. 6. Weir p.r.n. ALLERGIES: THE PATIENT WITH NO KNOWN DRUG ALLERGIES. PHYSICAL EXAMINATION: VITAL SIGNS: The patient is currently afebrile with stable vital signs. HEENT: The extraocular motions are intact. Oropharynx is clear. NECK: Supple. LUNGS: Clear anteriorly. CARDIAC: S1, S2. ABDOMEN: Soft, nontender, positive bowel sounds. NEUROLOGIC: The patient is awake and alert and oriented to person and hospital and he can follow si mple 1-step commands. He demonstrates significantly decreased shoulder range of motion bilaterally, right worse than left, with decreased forward flexion and abduction. He does demonstrate antigravi ty strength in bilateral lower extremities, but notable decreased dorsiflexion on the left. Patient does have impaired dynamic balance. PLAN: The patient has been admitted for comprehensive interdisciplinary acute rehab and is anticipa kassandra to tolerate 3 hours of daily therapy in divided doses for at least 5/7 days a week. The treatme nt plan will include: 1. Physical therapy to focus on bed mobility, transfers and household ambulation with the goal of h aving patient reach a standby assist level. 2. Occupational therapy to focus on hygiene, grooming, dressing, bathing and toileting activities w ith the goal of having the patient reach a standby assist level. 3. Rehabilitation nursing for carryover of therapeutic interventions, the goal of continent of cornel l and bladder and the goal of pain adequately managed on oral medications. REHABILITATION BARRIER: Decreased range of motion in bilateral shoulders. INTERVENTION FOR BARRIER: Interdisciplinary approach. ESTIMATED LENGTH OF STAY: 14 days. DISPOSITION GOAL: Home. I acknowledge that I performed a full physical examination on this patient within 24 hours of admiss ion to the rehabilitation unit and believe the patient is a good candidate for comprehensive interdi sciplinary rehab care and is anticipated to make reasonable goals in a reasonable period of time as outlined above. Dictated By: SALVADOR CALLES/HI Conf#: [id number] DID#: [id number]
[2017-03-28 16:26] VITALS: BP 113/66; RESP 17
[2017-03-28 20:03] VITALS: BP 110/62; RESP 18
[2017-03-28] MEDS: SENNA TAB PO SCH (20:19)
[2017-03-28] MEDS: ATORVASTATIN 10 MG TAB PO SCH (20:19)
[2017-03-29 02:00] VITALS: BP 116/67; RESP 18
[2017-03-29 07:30] VITALS: BP 136/63; RESP 18
[2017-03-29 08:00] VITALS: BP 136/63; PULSE 70; RESP 18
[2017-03-29] MEDS: DOCUSATE SODIUM 100 MG CAP PO SCH ×2 (09:15→20:15)
[2017-03-29] MEDS: FISH OIL 1,000 MG CAP PO SCH ×2 (09:16→20:15)
[2017-03-29] MEDS: AMLODIPINE 5 MG TAB PO SCH (09:16)
[2017-03-29] MEDS: ASCORBIC ACID 500 MG TAB PO SCH (09:16)
--- NOTE | 2017-03-29 11:20 | CONS ---
Date/Time of Note Date/Time of Note DATE: 03/29/17 TIME: 11:20 Consult Date/Type/Reason Admit Date/Time Mar 27, 2017 at 12:20 Initial Consult Date Subjective In good spirits Objective pulm-cta abd-soft mod/max assist Vital Signs Date Time Temp Pulse Resp B/P Pulse Ox O2 Delivery O2 Flow Rate FiO2 03/29/17 08:00 98.2 70 18 136/63 96 Room Air Intake and Output 03/28/17 03/28/17 03/29/17 15:00 23:00 07:00 Intake Total 1200 ml 700 ml Output Total 1100 ml Balance 100 ml 700 ml Results/Medications Result Diagram: 03/28/1739 03/28/17 0639 Medications Current Medications Docusate Sodium (Colace) 100 mg BID PO Last administered on 03/29/17 09:15; Admin Dose 100 MG; Start 03/27/17 at 21:00 Senna (Senokot) 1 tab HS PO Last administered on 03/28/17 20:19; Admin Dose 1 TAB; Start 03/27/17 at 21:00 Magnesium Hydroxide (Milk Of Mag) 30 ml BID PRN PO CONSTIPATION; Start at 14:00 Lactulose (Enulose) 20 gm DAILY PRN PO CONSTIPATION; Start 03/27/17 at 14:00 Bisacodyl (Dulcolax Supp) 10 mg DAILY PRN [place] CONSTIPATION; Start 03/27/17 at 14:00 Acetaminophen (Tylenol Tab) 650 mg Q4H PRN PO PAIN Last administered on 15:19; Admin Dose 650 MG; Start 03/27/17 at 14:00 Acetaminophen/ Hydrocodone Bitart ([place] (5/325)) 1 tab Q4H PRN PO PAIN LEVEL 1 -5 Last administered on 03/28/17 12:31; Admin Dose 1 TAB; Start 03/27/17 at 16 :30 Phenol (Cepastat Lozenge) 1 lozenge PRN PRN [place] SORE THROAT; Start 03/27/17 at 16:30 Fish Oil (Fish Oil) 2,000 mg BID PO Last administered on 03/29/17 09:16; Admin Dose 2,000 MG; Start 03/27/17 at 21:00 Amlodipine Besylate (Norvasc) 5 mg DAILY PO Last administered on 03/29/17 09: 16; Admin Dose 5 MG; Start 03/28/17 at 09:00 Ascorbic Acid (Vitamin C) 500 mg DAILY PO Last administered on 03/29/17 09:16 ; Admin Dose 500 MG; Start 03/28/17 at 09:00 Atorvastatin Calcium (Lipitor) 10 mg QHS PO Last administered on 03/28/17 20: 19; Admin Dose 10 MG; Start 03/27/17 at 21:00 Bisacodyl (Dulcolax) 10 mg DAILY PRN PO CONSTIPATION; Start 03/27/17 at 17:30 Eye Lubricant (Artificial Tears Oph) 2 drop Q6H PRN BOTH EYES DRY EYES; Start 03/27/17 at 17:30 Simethicone (Mylicon) 80 mg TID PRN PO DISTENSION/GAS/BLOATING Last administered on 03/28/17 20:20; Admin Dose 80 MG; Start 03/28/17 at 12:30 Assessment/Plan Additional Assessment/Plan Rehab- Lumbar radiculopathy with left foot drop, status post revision lumbar decompressive laminectomy. Continue rehab therapy Acute pain syndrome-reports pain under control Recent left rotator cuff tear. Right rotator cuff tear. Hypertension. Glaucoma. Hyperlipidemia. Impaired hearing. SALVADOR GONZALEZ MD Mar 29, 2017 11:20
[2017-03-29 14:00] VITALS: BP 131/59; RESP 18
[2017-03-29 19:30] VITALS: BP 135/67; RESP 19
[2017-03-29] MEDS: ATORVASTATIN 10 MG TAB PO SCH (20:14)
[2017-03-29] MEDS: SENNA TAB PO SCH (20:15)
[2017-03-30 02:45] VITALS: BP 123/58; RESP 18
[2017-03-30] MEDS: FISH OIL 1,000 MG CAP PO SCH ×2 (08:23→20:52)
[2017-03-30] MEDS: DOCUSATE SODIUM 100 MG CAP PO SCH ×2 (08:23→20:52)
[2017-03-30] MEDS: AMLODIPINE 5 MG TAB PO SCH (08:23)
[2017-03-30] MEDS: ASCORBIC ACID 500 MG TAB PO SCH (08:23)
[2017-03-30 08:30] VITALS: BP 129/61; PULSE 68; RESP 20
--- NOTE | 2017-03-30 09:13 | PN ---
Date/Time of Note Date/Time of Note DATE: 03/30/17 TIME: 09:11 Assessment/Plan VTE Prophylaxis VTE Prophylaxis Intervention: anti-embolic stocking Lines/Catheters IV Catheter Type (from Rust): Saline Lock Urinary Cath still in place: No Assessment/Plan Problems: (1) S/P lumbar laminectomy Onset Date: ~ 03/25/2017 Status: Acute Comment: Recovering nicely with the guidance of the acute rehabilitation unit. Continue with treatment with hope of home therapy (2) Foot drop, left Status: Acute Comment: Persists however he may be having some improvement (3) Injury of right rotator cuff Status: Chronic Comment: This remains a significant issue but is been present for a number of years. It may be addressed more formally at a later date Qualifiers: Encounter type: subsequent encounter Qualified Code: S46.001D - Injury of right rotator cuff, subsequent encounter (4) Hyperlipidemia Status: Chronic Comment: Continue with standard treatment statins Qualifiers: Hyperlipidemia type: pure hypercholesterolemia Qualified Code: E78.00 - Pure hypercholesterolemia (5) Essential hypertension Status: Chronic Comment: Stable and controlled (6) Diastolic dysfunction Onset Date: ~ 03/13/2017 Status: Chronic Comment: Stable and not causing medical issues (7) Moderate aortic stenosis by prior echocardiogram Onset Date: ~ 03/13/2017 Status: Chronic Comment: Noted. Subjective 24 Hr Interval Summary Free Text/Dictation Patient reports that he is coming along nicely. He has better range of motion at the left shoulder but not at the right shoulder Constitutional: no complaints Respiratory: no complaints Cardiovascular: no complaints Gastrointestinal: no complaints Exam/Review of Systems Vital Signs Vitals Vital Signs Date Time Temp Pulse Resp B/P Pulse Ox O2 Delivery O2 Flow Rate FiO2 03/30/17 08:30 98.2 68 20 129/61 97 Room Air Intake and Output 03/29/17 03/29/17 03/30/17 15:00 23:00 07:00 Intake Total 620 ml 240 ml Output Total 900 ml Balance 620 ml -660 ml Exam Constitutional: alert, oriented Neck: non-tender, supple Respiratory: clear to auscultation, normal air movement Cardiovascular: nl pulses, regular rate and rhythm Results Result Diagram: 03/28/17 0639 03/28/17 0639 Medications Medications Current Medications Docusate Sodium (Colace) 100 mg BID PO Last administered on 03/30/17t 08:23; Admin Dose 100 MG; Start 03/27/17 at 21:00 Senna (Senokot) 1 tab HS PO Last administered on 03/29/17 20:15; Admin Dose 1 TAB; Start 03/27/17 at 21:00 Magnesium Hydroxide (Milk Of Mag) 30 ml BID PRN PO CONSTIPATION; Start at 14:00 Lactulose (Enulose) 20 gm DAILY PRN PO CONSTIPATION; Start 03/27/17 at 14:00 Bisacodyl (Dulcolax Supp) 10 mg DAILY PRN [place] CONSTIPATION; Start 03/27/17 at 14:00 Acetaminophen (Tylenol Tab) 650 mg Q4H PRN PO PAIN Last administered on 15:19; Admin Dose 650 MG; Start 03/27/17 at 14:00 Acetaminophen/ Hydrocodone Bitart ([place] (5/325)) 1 tab Q4H PRN PO PAIN LEVEL 1 -5 Last administered on 03/28/17 12:31; Admin Dose 1 TAB; Start 03/27/17 at 16 :30 Phenol (Cepastat Lozenge) 1 lozenge PRN PRN [place] SORE THROAT; Start 03/27/17 at 16:30 Fish Oil (Fish Oil) 2,000 mg BID PO Last administered on 03/30/17 08:23; Admin Dose 2,000 MG; Start 03/27/17 at 21:00 Amlodipine Besylate (Norvasc) 5 mg DAILY PO Last administered on 03/30/17 08: 23; Admin Dose 5 MG; Start 03/28/17 at 09:00 Ascorbic Acid (Vitamin C) 500 mg DAILY PO Last administered on 03/30/17 08:23 ; Admin Dose 500 MG; Start 03/28/17 at 09:00 Atorvastatin Calcium (Lipitor) 10 mg QHS PO Last administered on 03/29/17 20: 14; Admin Dose 10 MG; Start 03/27/17 at 21:00 Bisacodyl (Dulcolax) 10 mg DAILY PRN PO CONSTIPATION; Start 03/27/17 at 17:30 Eye Lubricant (Artificial Tears Oph) 2 drop Q6H PRN BOTH EYES DRY EYES; Start 03/27/17 at 17:30 Simethicone (Mylicon) 80 mg TID PRN PO DISTENSION/GAS/BLOATING Last administered on 03/28/17t 20:20; Admin Dose 80 MG; Start 03/28/17 at 12:30 JOSETTE LANCASTER MD Mar 30, 2017 09:13
[2017-03-30] MEDS: CIPROFLOXACIN 500 MG TAB PO SCH (17:28)
[2017-03-30 20:00] VITALS: BP 137/66; RESP 18
[2017-03-30] MEDS: ATORVASTATIN 10 MG TAB PO SCH (20:52)
[2017-03-30] MEDS: SENNA TAB PO SCH (20:52)
[2017-03-31 02:00] VITALS: BP 122/61; RESP 18
[2017-03-31] MEDS: CIPROFLOXACIN 500 MG TAB PO SCH ×2 (05:46→17:57)
[2017-03-31 08:00] VITALS: BP 135/67; RESP 18
[2017-03-31] MEDS: DOCUSATE SODIUM 100 MG CAP PO SCH ×2 (08:52→21:00)
[2017-03-31] MEDS: AMLODIPINE 5 MG TAB PO SCH (08:52)
[2017-03-31] MEDS: FISH OIL 1,000 MG CAP PO SCH ×2 (08:52→21:53)
[2017-03-31] MEDS: ASCORBIC ACID 500 MG TAB PO SCH (08:52)
--- NOTE | 2017-03-31 13:12 | CONS ---
Date/Time of Note Date/Time of Note DATE: 03/31/17 TIME: 13:12 Consult Date/Type/Reason Admit Date/Time Mar 27, 2017 at 12:20 Objective Vital Signs Date Time Temp Pulse Resp B/P Pulse Ox O2 Delivery O2 Flow Rate FiO2 03/31/17 08:00 98.0 75 18 135/67 97 03/30/17 08:30 Room Air Intake and Output 03/30/17 03/30/17 03/31/17 15:00 23:00 07:00 Intake Total 2400 ml 300 ml Output Total 200 ml 1200 ml 1450 ml Balance -200 ml 1200 ml -1150 ml INTERDISCIPLINARY TEAM CONFERENCE BOWEL- Cont BLADDER-Cont SKIN- intact OT- DRESSING-min/mod BATHING-min/mod TOILETING-mod PT- BED MOBILITY-mod TRANSFERS-mod AMBULATION-mod/max 50 feet A/P- Interdisciplinary team conference held today. Please see interdisciplinary sheet. Working toward d.c. on 04/11 with post discharge follow up of physical therapy, occupational therapy. Results/Medications Result Diagram: 03/28/17 0639 03/28/17 0639 Medications Current Medications Docusate Sodium (Colace) 100 mg BID PO Last administered on 03/31/17 08:52; Admin Dose 100 MG; Start 03/27/17 at 21:00 Senna (Senokot) 1 tab HS PO Last administered on 03/30/17 20:52; Admin Dose 1 TAB; Start 03/27/17 at 21:00 Magnesium Hydroxide (Milk Of Mag) 30 ml BID PRN PO CONSTIPATION; Start at 14:00 Lactulose (Enulose) 20 gm DAILY PRN PO CONSTIPATION; Start 03/27/17 at 14:00 Bisacodyl (Dulcolax Supp) 10 mg DAILY PRN [place] CONSTIPATION; Start 03/27/17 at 14:00 Acetaminophen (Tylenol Tab) 650 mg Q4H PRN PO PAIN Last administered on 15:19; Admin Dose 650 MG; Start 03/27/17 at 14:00 Acetaminophen/ Hydrocodone Bitart ([place] (5/325)) 1 tab Q4H PRN PO PAIN LEVEL 1 -5 Last administered on 03/28/17 12:31; Admin Dose 1 TAB; Start 03/27/17 at 16 :30 Phenol (Cepastat Lozenge) 1 lozenge PRN PRN [place] SORE THROAT; Start 03/27/17 at 16:30 Fish Oil (Fish Oil) 2,000 mg BID PO Last administered on 03/31/17 08:52; Admin Dose 2,000 MG; Start 03/27/17 at 21:00 Amlodipine Besylate (Norvasc) 5 mg DAILY PO Last administered on 03/31/17 08: 52; Admin Dose 5 MG; Start 03/28/17 at 09:00 Ascorbic Acid (Vitamin C) 500 mg DAILY PO Last administered on 03/31/17 08:52 ; Admin Dose 500 MG; Start 03/28/17 at 09:00 Atorvastatin Calcium (Lipitor) 10 mg QHS PO Last administered on 03/30/17 20: 52; Admin Dose 10 MG; Start 03/27/17 at 21:00 Bisacodyl (Dulcolax) 10 mg DAILY PRN PO CONSTIPATION; Start 03/27/17 at 17:30 Eye Lubricant (Artificial Tears Oph) 2 drop Q6H PRN BOTH EYES DRY EYES; Start 03/27/17 at 17:30 Simethicone (Mylicon) 80 mg TID PRN PO DISTENSION/GAS/BLOATING Last administered on 03/30/17 15:10; Admin Dose 80 MG; Start 03/28/17 at 12:30 Ciprofloxacin (Cipro) 500 mg BID@,18 PO Last administered on 03/31/17 05:46 ; Admin Dose 500 MG; Start 03/30/17 at 18:00; Stop 04/09/17 at 19:00 SALVADOR GONZALEZ MD Mar 31, 2017 13:12
--- NOTE | 2017-03-31 18:10 | PN ---
Date/Time of Note Date/Time of Note DATE: 03/31/17 TIME: 18:09 Assessment/Plan VTE Prophylaxis VTE Prophylaxis Intervention: ambulation Lines/Catheters IV Catheter Type (from Nrsg): Saline Lock Urinary Cath still in place: No Subjective 24 Hr Interval Summary Free Text/Dictation continues to make good progress with pt and ot with persistent deficits as before. remains alert and good positive attitude on exam, sitting in chair, alert lungs clear hr ok no edema better le strenth, shoulders less sore Musculoskeletal: bone/joint pain, restricted range of motion Exam/Review of Systems Vital Signs Vitals Vital Signs Date Time Temp Pulse Resp B/P Pulse Ox O2 Delivery O2 Flow Rate FiO2 03/31/17 08:00 98.0 75 18 135/67 97 03/30/17 08:30 Room Air Intake and Output 03/30/17 03/30/17 03/31/17 15:00 23:00 07:00 Intake Total 2400 ml 300 ml Output Total 200 ml 1200 ml 1450 ml Balance -200 ml 1200 ml -1150 ml Results Result Diagram: 03/28/17 0639 03/28/17 0639 Medications Medications Current Medications Docusate Sodium (Colace) 100 mg BID PO Last administered on 03/31/17 08:52; Admin Dose 100 MG; Start 03/27/17 at 21:00 Senna (Senokot) 1 tab HS PO Last administered on 03/30/17 20:52; Admin Dose 1 TAB; Start 03/27/17 at 21:00 Magnesium Hydroxide (Milk Of Mag) 30 ml BID PRN PO CONSTIPATION; Start at 14:00 Lactulose (Enulose) 20 gm DAILY PRN PO CONSTIPATION; Start 03/27/17 at 14:00 Bisacodyl (Dulcolax Supp) 10 mg DAILY PRN [place] CONSTIPATION; Start 03/27/17 at 14:00 Acetaminophen (Tylenol Tab) 650 mg Q4H PRN PO PAIN Last administered on 15:19; Admin Dose 650 MG; Start 03/27/17 at 14:00 Acetaminophen/ Hydrocodone Bitart ([place] (5/325)) 1 tab Q4H PRN PO PAIN LEVEL 1 -5 Last administered on 03/28/17 12:31; Admin Dose 1 TAB; Start 03/27/17 at 16 :30 Phenol (Cepastat Lozenge) 1 lozenge PRN PRN [place] SORE THROAT; Start 03/27/17 at 16:30 Fish Oil (Fish Oil) 2,000 mg BID PO Last administered on 03/31/17 08:52; Admin Dose 2,000 MG; Start 03/27/17 at 21:00 Amlodipine Besylate (Norvasc) 5 mg DAILY PO Last administered on 03/31/17 08: 52; Admin Dose 5 MG; Start 03/28/17 at 09:00 Ascorbic Acid (Vitamin C) 500 mg DAILY PO Last administered on 03/31/17 08:52 ; Admin Dose 500 MG; Start 03/28/17 at 09:00 Atorvastatin Calcium (Lipitor) 10 mg QHS PO Last administered on 03/30/17 20: 52; Admin Dose 10 MG; Start 03/27/17 at 21:00 Bisacodyl (Dulcolax) 10 mg DAILY PRN PO CONSTIPATION; Start 03/27/17 at 17:30 Eye Lubricant (Artificial Tears Oph) 2 drop Q6H PRN BOTH EYES DRY EYES; Start 03/27/17 at 17:30 Simethicone (Mylicon) 80 mg TID PRN PO DISTENSION/GAS/BLOATING Last administered on 03/30/17 15:10; Admin Dose 80 MG; Start 03/28/17 at 12:30 Ciprofloxacin (Cipro) 500 mg BID@,18 PO Last administered on 03/31/17 17:57 ; Admin Dose 500 MG; Start 03/30/17 at 18:00; Stop 04/09/17 at 19:00 EVERTON MCARTHUR MD Mar 31, 2017 18:10
[2017-03-31 20:00] VITALS: BP 129/68; RESP 18
[2017-03-31] MEDS: SENNA TAB PO SCH (21:00)
[2017-03-31] MEDS: ATORVASTATIN 10 MG TAB PO SCH (21:53)
[2017-04-01] MEDS: CIPROFLOXACIN 500 MG TAB PO SCH ×2 (06:06→17:32)
[2017-04-01 07:30] VITALS: BP 132/65; RESP 20
[2017-04-01] MEDS: FISH OIL 1,000 MG CAP PO SCH ×2 (09:35→20:37)
[2017-04-01] MEDS: AMLODIPINE 5 MG TAB PO SCH (09:35)
[2017-04-01] MEDS: ASCORBIC ACID 500 MG TAB PO SCH (09:35)
[2017-04-01] MEDS: DOCUSATE SODIUM 100 MG CAP PO SCH ×2 (09:35→20:36)
--- NOTE | 2017-04-01 12:23 | CONS ---
Date/Time of Note Date/Time of Note DATE: 04/01/17 TIME: 12:22 Consult Date/Type/Reason Admit Date/Time Mar 27, 2017 at 12:20 Subjective Overall improving Objective mod assist Vital Signs Date Time Temp Pulse Resp B/P Pulse Ox O2 Delivery O2 Flow Rate FiO2 04/01/17 07:30 97.9 71 20 132/65 97 03/30/17 08:30 Room Air Intake and Output 03/31/17 03/31/17 04/01/17 14:59 22:59 06:59 Intake Total 1200 ml 300 ml Output Total 650 ml 550 ml 900 ml Balance -650 ml 650 ml -600 ml Results/Medications Result Diagram: 03/28/1739 03/28/17 0639 Medications Current Medications Docusate Sodium (Colace) 100 mg BID PO Last administered on 04/01/17 09:35; Admin Dose 100 MG; Start 03/27/17 at 21:00 Senna (Senokot) 1 tab HS PO Last administered on 03/30/17 20:52; Admin Dose 1 TAB; Start 03/27/17 at 21:00 Magnesium Hydroxide (Milk Of Mag) 30 ml BID PRN PO CONSTIPATION; Start at 14:00 Lactulose (Enulose) 20 gm DAILY PRN PO CONSTIPATION; Start 03/27/17 at 14:00 Bisacodyl (Dulcolax Supp) 10 mg DAILY PRN [place] CONSTIPATION; Start 03/27/17 at 14:00 Acetaminophen (Tylenol Tab) 650 mg Q4H PRN PO PAIN Last administered on 15:19; Admin Dose 650 MG; Start 03/27/17 at 14:00 Acetaminophen/ Hydrocodone Bitart ([place] (5/325)) 1 tab Q4H PRN PO PAIN LEVEL 1 -5 Last administered on 03/28/17 12:31; Admin Dose 1 TAB; Start 03/27/17 at 16 :30 Phenol (Cepastat Lozenge) 1 lozenge PRN PRN [place] SORE THROAT; Start 03/27/17 at 16:30 Fish Oil (Fish Oil) 2,000 mg BID PO Last administered on 04/01/17 09:35; Admin Dose 2,000 MG; Start 03/27/17 at 21:00 Amlodipine Besylate (Norvasc) 5 mg DAILY PO Last administered on 04/01/17 09: 35; Admin Dose 5 MG; Start 03/28/17 at 09:00 Ascorbic Acid (Vitamin C) 500 mg DAILY PO Last administered on 04/01/17 09:35 ; Admin Dose 500 MG; Start 03/28/17 at 09:00 Atorvastatin Calcium (Lipitor) 10 mg QHS PO Last administered on 03/31/17 21: 53; Admin Dose 10 MG; Start 03/27/17 at 21:00 Bisacodyl (Dulcolax) 10 mg DAILY PRN PO CONSTIPATION; Start 03/27/17 at 17:30 Eye Lubricant (Artificial Tears Oph) 2 drop Q6H PRN BOTH EYES DRY EYES; Start 03/27/17 at 17:30 Simethicone (Mylicon) 80 mg TID PRN PO DISTENSION/GAS/BLOATING Last administered on 04/01/17 10:13; Admin Dose 80 MG; Start 03/28/17 at 12:30 Ciprofloxacin (Cipro) 500 mg BID@,18 PO Last administered on 04/01/17 06:06 ; Admin Dose 500 MG; Start 03/30/17 at 18:00; Stop 04/09/17 at 19:00 Assessment/Plan Additional Assessment/Plan Rehab- Lumbar radiculopathy with left foot drop, status post revision lumbar decompressive laminectomy. Progressing well with therapy Acute pain syndrome-improved Recent left rotator cuff tear. Right rotator cuff tear. Hypertension. Glaucoma. Hyperlipidemia. Impaired hearing. SALVADOR GONZALEZ MD Apr 01, 2017 12:23
[2017-04-01 14:00] VITALS: BP 131/63; RESP 18
[2017-04-01 20:00] VITALS: BP 128/66; RESP 18
[2017-04-01] MEDS: ATORVASTATIN 10 MG TAB PO SCH (20:36)
[2017-04-01] MEDS: SENNA TAB PO SCH (20:36)
[2017-04-02 02:00] VITALS: BP 122/60; RESP 18
[2017-04-02] MEDS: CIPROFLOXACIN 500 MG TAB PO SCH ×2 (06:02→17:49)
[2017-04-02 07:30] VITALS: BP 121/60; RESP 18
[2017-04-02] MEDS: ASCORBIC ACID 500 MG TAB PO SCH (09:15)
[2017-04-02] MEDS: AMLODIPINE 5 MG TAB PO SCH (09:15)
[2017-04-02] MEDS: DOCUSATE SODIUM 100 MG CAP PO SCH ×2 (09:16→20:32)
[2017-04-02] MEDS: FISH OIL 1,000 MG CAP PO SCH ×2 (09:16→20:31)
--- NOTE | 2017-04-02 11:58 | CONS ---
Date/Time of Note Date/Time of Note DATE: 04/02/17 TIME: 11:58 Consult Date/Type/Reason Admit Date/Time Mar 27, 2017 at 12:20 Subjective Up for activities Objective pulm-cta min assist ambulation 100 feet Vital Signs Date Time Temp Pulse Resp B/P Pulse Ox O2 Delivery O2 Flow Rate FiO2 04/02/17 07:30 97.9 69 18 121/60 97 03/30/17 08:30 Room Air Intake and Output 04/01/17 04/01/17 04/02/17 15:00 23:00 07:00 Intake Total 840 ml 240 ml Output Total 320 ml 300 ml Balance 520 ml -60 ml Results/Medications Medications Current Medications Docusate Sodium (Colace) 100 mg BID PO Last administered on 04/02/17 09:16; Admin Dose 100 MG; Start 03/27/17 at 21:00 Senna (Senokot) 1 tab HS PO Last administered on 04/01/17 20:36; Admin Dose 1 TAB; Start 03/27/17 at 21:00 Magnesium Hydroxide (Milk Of Mag) 30 ml BID PRN PO CONSTIPATION; Start at 14:00 Lactulose (Enulose) 20 gm DAILY PRN PO CONSTIPATION; Start 03/27/17 at 14:00 Bisacodyl (Dulcolax Supp) 10 mg DAILY PRN [place] CONSTIPATION; Start 03/27/17 at 14:00 Acetaminophen (Tylenol Tab) 650 mg Q4H PRN PO PAIN Last administered on 15:19; Admin Dose 650 MG; Start 03/27/17 at 14:00 Acetaminophen/ Hydrocodone Bitart ([place] (5/325)) 1 tab Q4H PRN PO PAIN LEVEL 1 -5 Last administered on 03/28/17 12:31; Admin Dose 1 TAB; Start 03/27/17 at 16 :30 Phenol (Cepastat Lozenge) 1 lozenge PRN PRN [place] SORE THROAT; Start 03/27/17 at 16:30 Fish Oil (Fish Oil) 2,000 mg BID PO Last administered on 04/02/17 09:16; Admin Dose 2,000 MG; Start 03/27/17 at 21:00 Amlodipine Besylate (Norvasc) 5 mg DAILY PO Last administered on 04/02/17 09: 15; Admin Dose 5 MG; Start 03/28/17 at 09:00 Ascorbic Acid (Vitamin C) 500 mg DAILY PO Last administered on 04/02/17 09:15 ; Admin Dose 500 MG; Start 03/28/17 at 09:00 Atorvastatin Calcium (Lipitor) 10 mg QHS PO Last administered on 04/01/17 20: 36; Admin Dose 10 MG; Start 03/27/17 at 21:00 Bisacodyl (Dulcolax) 10 mg DAILY PRN PO CONSTIPATION; Start 03/27/17 at 17:30 Eye Lubricant (Artificial Tears Oph) 2 drop Q6H PRN BOTH EYES DRY EYES; Start 03/27/17 at 17:30 Simethicone (Mylicon) 80 mg TID PRN PO DISTENSION/GAS/BLOATING Last administered on 04/01/17 10:13; Admin Dose 80 MG; Start 03/28/17 at 12:30 Ciprofloxacin (Cipro) 500 mg BID@,18 PO Last administered on 04/02/17 06:02 ; Admin Dose 500 MG; Start 03/30/17 at 18:00; Stop 04/09/17 at 19:00 Assessment/Plan Additional Assessment/Plan Rehab- Lumbar radiculopathy with left foot drop, status post revision lumbar decompressive laminectomy. Continue rehab program Acute pain syndrome-continue current meds Recent left rotator cuff tear. Right rotator cuff tear. Hypertension. Glaucoma. Hyperlipidemia. Impaired hearing. SALVADOR GONZALEZ MD Apr 02, 2017 11:58
[2017-04-02 14:00] VITALS: BP 132/67; RESP 18
--- NOTE | 2017-04-02 16:33 | PN ---
Date/Time of Note Date/Time of Note DATE: 04/02/17 TIME: 16:31 Assessment/Plan VTE Prophylaxis VTE Prophylaxis Intervention: ambulation Lines/Catheters IV Catheter Type (from Nrsg): Saline Lock Urinary Cath still in place: No Subjective 24 Hr Interval Summary Free Text/Dictation post lami for spinal stenosis. associated left foot drop since summer time, walking ok with brace, less left sided pain uti on cipro hbp, ok on meds alert, voiding ok lungs clear, hr ok imp stable in rehab, making progress Musculoskeletal: bone/joint pain Neurologic: focal-weakness Exam/Review of Systems Vital Signs Vitals Vital Signs Date Time Temp Pulse Resp B/P Pulse Ox O2 Delivery O2 Flow Rate FiO2 04/02/17 14:00 97.8 99 18 132/67 98 03/30/17 08:30 Room Air Intake and Output 04/01/17 04/01/17 04/02/17 15:00 23:00 07:00 Intake Total 840 ml 240 ml Output Total 320 ml 300 ml Balance 520 ml -60 ml Medications Medications Current Medications Docusate Sodium (Colace) 100 mg BID PO Last administered on 04/02/17 09:16; Admin Dose 100 MG; Start 03/27/17 at 21:00 Senna (Senokot) 1 tab HS PO Last administered on 04/01/17 20:36; Admin Dose 1 TAB; Start 03/27/17 at 21:00 Magnesium Hydroxide (Milk Of Mag) 30 ml BID PRN PO CONSTIPATION; Start at 14:00 Lactulose (Enulose) 20 gm DAILY PRN PO CONSTIPATION; Start 03/27/17 at 14:00 Bisacodyl (Dulcolax Supp) 10 mg DAILY PRN [place] CONSTIPATION; Start 03/27/17 at 14:00 Acetaminophen (Tylenol Tab) 650 mg Q4H PRN PO PAIN Last administered on 15:19; Admin Dose 650 MG; Start 03/27/17 at 14:00 Acetaminophen/ Hydrocodone Bitart ([place] (5/325)) 1 tab Q4H PRN PO PAIN LEVEL 1 -5 Last administered on 03/28/17 12:31; Admin Dose 1 TAB; Start 03/27/17 at 16 :30 Phenol (Cepastat Lozenge) 1 lozenge PRN PRN [place] SORE THROAT; Start 03/27/17 at 16:30 Fish Oil (Fish Oil) 2,000 mg BID PO Last administered on 04/02/17 09:16; Admin Dose 2,000 MG; Start 03/27/17 at 21:00 Amlodipine Besylate (Norvasc) 5 mg DAILY PO Last administered on 04/02/17 09: 15; Admin Dose 5 MG; Start 03/28/17 at 09:00 Ascorbic Acid (Vitamin C) 500 mg DAILY PO Last administered on 04/02/17 09:15 ; Admin Dose 500 MG; Start 03/28/17 at 09:00 Atorvastatin Calcium (Lipitor) 10 mg QHS PO Last administered on 04/01/17 20: 36; Admin Dose 10 MG; Start 03/27/17 at 21:00 Bisacodyl (Dulcolax) 10 mg DAILY PRN PO CONSTIPATION; Start 03/27/17 at 17:30 Eye Lubricant (Artificial Tears Oph) 2 drop Q6H PRN BOTH EYES DRY EYES; Start 03/27/17 at 17:30 Simethicone (Mylicon) 80 mg TID PRN PO DISTENSION/GAS/BLOATING Last administered on 04/01/17 10:13; Admin Dose 80 MG; Start 03/28/17 at 12:30 Ciprofloxacin (Cipro) 500 mg BID@ PO Last administered on 04/02/17 06:02 ; Admin Dose 500 MG; Start 03/30/17 at 18:00; Stop 04/09/17 at 19:00 EVERTON MCARTHUR MD Apr 02, 2017 16:33
[2017-04-02] MEDS: HYDROCODONE/APAP (5/325) TAB PO PRN (16:34)
[2017-04-02 20:00] VITALS: BP 128/65; RESP 18
[2017-04-02] MEDS: ATORVASTATIN 10 MG TAB PO SCH (20:32)
[2017-04-02] MEDS: SENNA TAB PO SCH (20:32)
[2017-04-03] MEDS: CIPROFLOXACIN 500 MG TAB PO SCH ×2 (05:28→17:42)
[2017-04-03 08:00] VITALS: BP 126/60; RESP 18
[2017-04-03] MEDS: AMLODIPINE 5 MG TAB PO SCH (09:23)
[2017-04-03] MEDS: DOCUSATE SODIUM 100 MG CAP PO SCH ×2 (09:24→20:14)
[2017-04-03] MEDS: FISH OIL 1,000 MG CAP PO SCH ×2 (09:24→20:14)
[2017-04-03] MEDS: ASCORBIC ACID 500 MG TAB PO SCH (09:24)
--- NOTE | 2017-04-03 10:46 | CONS ---
Date/Time of Note Date/Time of Note DATE: 04/03/17 TIME: 10:43 Consult Date/Type/Reason Admit Date/Time Mar 27, 2017 at 12:20 Subjective Patient motivated during therapies Objective pulm-cta mod assist Vital Signs Date Time Temp Pulse Resp B/P Pulse Ox O2 Delivery O2 Flow Rate FiO2 04/02/17 20:00 98.3 81 18 128/65 93 03/30/17 08:30 Room Air Intake and Output 04/02/17 04/02/17 04/03/17 14:59 22:59 06:59 Intake Total 680 ml 900 ml Output Total 850 ml 300 ml 600 ml Balance -850 ml 380 ml 300 ml Results/Medications Medications Current Medications Docusate Sodium (Colace) 100 mg BID PO Last administered on 04/03/17 09:24; Admin Dose 100 MG; Start 03/27/17 at 21:00 Senna (Senokot) 1 tab HS PO Last administered on 04/02/17 20:32; Admin Dose 1 TAB; Start 03/27/17 at 21:00 Magnesium Hydroxide (Milk Of Mag) 30 ml BID PRN PO CONSTIPATION; Start at 14:00 Lactulose (Enulose) 20 gm DAILY PRN PO CONSTIPATION; Start 03/27/17 at 14:00 Bisacodyl (Dulcolax Supp) 10 mg DAILY PRN [place] CONSTIPATION; Start 03/27/17 at 14:00 Acetaminophen (Tylenol Tab) 650 mg Q4H PRN PO PAIN Last administered on 15:19; Admin Dose 650 MG; Start 03/27/17 at 14:00 Acetaminophen/ Hydrocodone Bitart ([place] (5/325)) 1 tab Q4H PRN PO PAIN LEVEL 1 -5 Last administered on 04/02/17 16:34; Admin Dose 1 TAB; Start 03/27/17 at 16 :30 Phenol (Cepastat Lozenge) 1 lozenge PRN PRN [place] SORE THROAT; Start 03/27/17 at 16:30 Fish Oil (Fish Oil) 2,000 mg BID PO Last administered on 04/03/17 09:24; Admin Dose 2,000 MG; Start 03/27/17 at 21:00 Amlodipine Besylate (Norvasc) 5 mg DAILY PO Last administered on 04/03/17 09: 23; Admin Dose 5 MG; Start 03/28/17 at 09:00 Ascorbic Acid (Vitamin C) 500 mg DAILY PO Last administered on 04/03/17 09:24 ; Admin Dose 500 MG; Start 03/28/17 at 09:00 Atorvastatin Calcium (Lipitor) 10 mg QHS PO Last administered on 04/02/17 20: 32; Admin Dose 10 MG; Start 03/27/17 at 21:00 Bisacodyl (Dulcolax) 10 mg DAILY PRN PO CONSTIPATION; Start 03/27/17 at 17:30 Eye Lubricant (Artificial Tears Oph) 2 drop Q6H PRN BOTH EYES DRY EYES; Start 03/27/17 at 17:30 Simethicone (Mylicon) 80 mg TID PRN PO DISTENSION/GAS/BLOATING Last administered on 04/02/17 16:34; Admin Dose 80 MG; Start 03/28/17 at 12:30 Ciprofloxacin (Cipro) 500 mg BID@06,18 PO Last administered on 04/03/17 05:28 ; Admin Dose 500 MG; Start 03/30/17 at 18:00; Stop 04/09/17 at 19:00 Assessment/Plan Additional Assessment/Plan Rehab- Lumbar radiculopathy with left foot drop, status post revision lumbar decompressive laminectomy. Continue therapy program Acute pain syndrome-improved Recent left rotator cuff tear. Right rotator cuff tear. Hypertension. Glaucoma. Hyperlipidemia. Impaired hearing. SALVADOR GONZALEZ MD Apr 03, 2017 10:46
[2017-04-03 19:27] VITALS: BP 138/68; RESP 19
[2017-04-03] MEDS: SENNA TAB PO SCH (20:14)
[2017-04-03] MEDS: ATORVASTATIN 10 MG TAB PO SCH (20:14)
[2017-04-04 02:16] VITALS: BP 136/63; RESP 19
[2017-04-04] MEDS: CIPROFLOXACIN 500 MG TAB PO SCH ×2 (06:16→18:34)
[2017-04-04] MEDS: MAGNESIUM HYDROXIDE 30ML CUP PO PRN (06:51)
[2017-04-04 07:00] VITALS: BP 133/65; RESP 18
[2017-04-04] MEDS: FISH OIL 1,000 MG CAP PO SCH ×2 (08:48→20:55)
[2017-04-04] MEDS: ASCORBIC ACID 500 MG TAB PO SCH (08:48)
[2017-04-04] MEDS: DOCUSATE SODIUM 100 MG CAP PO SCH ×2 (08:49→20:55)
[2017-04-04] MEDS: AMLODIPINE 5 MG TAB PO SCH (08:49)
--- NOTE | 2017-04-04 12:37 | CONS ---
Date/Time of Note Date/Time of Note DATE: 04/04/17 TIME: 12:36 Consult Date/Type/Reason Admit Date/Time Mar 27, 2017 at 12:20 Subjective Motivated for activities Objective pulm-cta min assist Vital Signs Date Time Temp Pulse Resp B/P Pulse Ox O2 Delivery O2 Flow Rate FiO2 04/04/17 07:00 98.0 73 18 133/65 97 Intake and Output 04/03/17 04/03/17 04/04/17 15:00 23:00 07:00 Intake Total 600 ml Output Total 400 ml 600 ml Balance 200 ml -600 ml Results/Medications Medications Current Medications Docusate Sodium (Colace) 100 mg BID PO Last administered on 04/04/17 08:49; Admin Dose 100 MG; Start 03/27/17 at 21:00 Senna (Senokot) 1 tab HS PO Last administered on 04/03/17 20:14; Admin Dose 1 TAB; Start 03/27/17 at 21:00 Magnesium Hydroxide (Milk Of Mag) 30 ml BID PRN PO CONSTIPATION Last administered on 04/04/17 06:51; Admin Dose 30 ML; Start 03/27/17 at 14:00 Lactulose (Enulose) 20 gm DAILY PRN PO CONSTIPATION; Start 03/27/17 at 14:00 Bisacodyl (Dulcolax Supp) 10 mg DAILY PRN [place] CONSTIPATION; Start 03/27/17 at 14:00 Acetaminophen (Tylenol Tab) 650 mg Q4H PRN PO PAIN Last administered on 15:19; Admin Dose 650 MG; Start 03/27/17 at 14:00 Acetaminophen/ Hydrocodone Bitart ([place] (5/325)) 1 tab Q4H PRN PO PAIN LEVEL 1 -5 Last administered on 04/02/17 16:34; Admin Dose 1 TAB; Start 03/27/17 at 16 :30 Phenol (Cepastat Lozenge) 1 lozenge PRN PRN [place] SORE THROAT; Start 03/27/17 at 16:30 Fish Oil (Fish Oil) 2,000 mg BID PO Last administered on 04/04/17 08:48; Admin Dose 2,000 MG; Start 03/27/17 at 21:00 Amlodipine Besylate (Norvasc) 5 mg DAILY PO Last administered on 04/04/17 08: 49; Admin Dose 5 MG; Start 03/28/17 at 09:00 Ascorbic Acid (Vitamin C) 500 mg DAILY PO Last administered on 04/04/17 08:48 ; Admin Dose 500 MG; Start 03/28/17 at 09:00 Atorvastatin Calcium (Lipitor) 10 mg QHS PO Last administered on 04/03/17 20: 14; Admin Dose 10 MG; Start 03/27/17 at 21:00 Bisacodyl (Dulcolax) 10 mg DAILY PRN PO CONSTIPATION; Start 03/27/17 at 17:30 Eye Lubricant (Artificial Tears Oph) 2 drop Q6H PRN BOTH EYES DRY EYES; Start 03/27/17 at 17:30 Simethicone (Mylicon) 80 mg TID PRN PO DISTENSION/GAS/BLOATING Last administered on 04/02/17 16:34; Admin Dose 80 MG; Start 03/28/17 at 12:30 Ciprofloxacin (Cipro) 500 mg BID@,18 PO Last administered on 04/04/17 06:16 ; Admin Dose 500 MG; Start 03/30/17 at 18:00; Stop 04/09/17 at 19:00 Assessment/Plan Additional Assessment/Plan Rehab- Lumbar radiculopathy with left foot drop, status post revision lumbar decompressive laminectomy. Continue treatment plan Acute pain syndrome-improved Recent left rotator cuff tear. Right rotator cuff tear. Hypertension. Glaucoma. Hyperlipidemia. Impaired hearing. SALVADOR GONZALEZ MD Apr 04, 2017 12:36
[2017-04-04 14:00] VITALS: BP 129/64; RESP 18
[2017-04-04] MEDS: ACETAMINOPHEN 325 MG TAB PO PRN (15:53)
--- NOTE | 2017-04-04 16:58 | PN ---
Date/Time of Note Date/Time of Note DATE: 04/04/17 TIME: 16:56 Assessment/Plan VTE Prophylaxis VTE Prophylaxis Intervention: contraindicated Lines/Catheters IV Catheter Type (from Nrsg): Saline Lock Urinary Cath still in place: No Subjective 24 Hr Interval Summary Free Text/Dictation dawit is making good progress excellent rom now with left shoulder post injury, rt side still poor rom no co leg pain. wearing afo brace vs ok alert lungs clear, hr ok, no edema plan to cont w rehab program, stay on meds for uti Musculoskeletal: bone/joint pain Neurologic: focal-weakness Exam/Review of Systems Vital Signs Vitals Vital Signs Date Time Temp Pulse Resp B/P Pulse Ox O2 Delivery O2 Flow Rate FiO2 04/04/17 14:00 98.2 95 18 129/64 96 Intake and Output 04/03/17 04/03/17 04/04/17 15:00 23:00 07:00 Intake Total 600 ml Output Total 400 ml 600 ml Balance 200 ml -600 ml Medications Medications Current Medications Docusate Sodium (Colace) 100 mg BID PO Last administered on 04/04/17 08:49; Admin Dose 100 MG; Start 03/27/17 at 21:00 Senna (Senokot) 1 tab HS PO Last administered on 04/03/17 20:14; Admin Dose 1 TAB; Start 03/27/17 at 21:00 Magnesium Hydroxide (Milk Of Mag) 30 ml BID PRN PO CONSTIPATION Last administered on 04/04/17 06:51; Admin Dose 30 ML; Start 03/27/17 at 14:00 Lactulose (Enulose) 20 gm DAILY PRN PO CONSTIPATION; Start 03/27/17 at 14:00 Bisacodyl (Dulcolax Supp) 10 mg DAILY PRN [place] CONSTIPATION; Start 03/27/17 at 14:00 Acetaminophen (Tylenol Tab) 650 mg Q4H PRN PO PAIN Last administered on 15:53; Admin Dose 650 MG; Start 03/27/17 at 14:00 Acetaminophen/ Hydrocodone Bitart ([place] (5/325)) 1 tab Q4H PRN PO PAIN LEVEL 1 -5 Last administered on 04/02/17 16:34; Admin Dose 1 TAB; Start 03/27/17 at 16 :30 Phenol (Cepastat Lozenge) 1 lozenge PRN PRN [place] SORE THROAT; Start 03/27/17 at 16:30 Fish Oil (Fish Oil) 2,000 mg BID PO Last administered on 04/04/17 08:48; Admin Dose 2,000 MG; Start 03/27/17 at 21:00 Amlodipine Besylate (Norvasc) 5 mg DAILY PO Last administered on 04/04/17 08: 49; Admin Dose 5 MG; Start 03/28/17 at 09:00 Ascorbic Acid (Vitamin C) 500 mg DAILY PO Last administered on 04/04/17 08:48 ; Admin Dose 500 MG; Start 03/28/17 at 09:00 Atorvastatin Calcium (Lipitor) 10 mg QHS PO Last administered on 04/03/17 20: 14; Admin Dose 10 MG; Start 03/27/17 at 21:00 Bisacodyl (Dulcolax) 10 mg DAILY PRN PO CONSTIPATION; Start 03/27/17 at 17:30 Eye Lubricant (Artificial Tears Oph) 2 drop Q6H PRN BOTH EYES DRY EYES; Start 03/27/17 at 17:30 Simethicone (Mylicon) 80 mg TID PRN PO DISTENSION/GAS/BLOATING Last administered on 04/02/17 16:34; Admin Dose 80 MG; Start 03/28/17 at 12:30 Ciprofloxacin (Cipro) 500 mg BID@,18 PO Last administered on 04/04/17 06:16 ; Admin Dose 500 MG; Start 03/30/17 at 18:00; Stop 04/09/17 at 19:00 EVERTON MCARTHUR MD Apr 04, 2017 16:58
[2017-04-04 20:00] VITALS: BP 130/63; RESP 18
[2017-04-04] MEDS: ATORVASTATIN 10 MG TAB PO SCH (20:55)
[2017-04-04] MEDS: SENNA TAB PO SCH (20:55)
[2017-04-05 03:06] VITALS: BP 127/65; RESP 18
[2017-04-05] MEDS: CIPROFLOXACIN 500 MG TAB PO SCH ×2 (05:59→18:13)
--- NOTE | 2017-04-05 06:42 | CONS ---
Date/Time of Note Date/Time of Note DATE: 04/05/17 TIME: 06:42 Consult Date/Type/Reason Admit Date/Time Mar 27, 2017 at 12:20 Subjective Doing very well Objective min assist 150 feet Vital Signs Date Time Temp Pulse Resp B/P Pulse Ox O2 Delivery O2 Flow Rate FiO2 04/05/17 03:06 97.8 80 18 127/65 95 Intake and Output 04/04/17 04/04/17 04/05/17 15:00 23:00 07:00 Intake Total 300 ml 1600 ml Output Total 300 ml 1001 ml Balance 0 ml 599 ml Results/Medications Medications Current Medications Docusate Sodium (Colace) 100 mg BID PO Last administered on 04/04/17 20:55; Admin Dose 100 MG; Start 03/27/17 at 21:00 Senna (Senokot) 1 tab HS PO Last administered on 04/04/17 20:55; Admin Dose 1 TAB; Start 03/27/17 at 21:00 Magnesium Hydroxide (Milk Of Mag) 30 ml BID PRN PO CONSTIPATION Last administered on 04/04/17 06:51; Admin Dose 30 ML; Start 03/27/17 at 14:00 Lactulose (Enulose) 20 gm DAILY PRN PO CONSTIPATION; Start 03/27/17 at 14:00 Bisacodyl (Dulcolax Supp) 10 mg DAILY PRN [place] CONSTIPATION; Start 03/27/17 at 14:00 Acetaminophen (Tylenol Tab) 650 mg Q4H PRN PO PAIN Last administered on 15:53; Admin Dose 650 MG; Start 03/27/17 at 14:00 Acetaminophen/ Hydrocodone Bitart ([place] (5/325)) 1 tab Q4H PRN PO PAIN LEVEL 1 -5 Last administered on 04/02/17 16:34; Admin Dose 1 TAB; Start 03/27/17 at 16 :30 Phenol (Cepastat Lozenge) 1 lozenge PRN PRN [place] SORE THROAT; Start 03/27/17 at 16:30 Fish Oil (Fish Oil) 2,000 mg BID PO Last administered on 04/04/17 20:55; Admin Dose 2,000 MG; Start 03/27/17 at 21:00 Amlodipine Besylate (Norvasc) 5 mg DAILY PO Last administered on 04/04/17 08: 49; Admin Dose 5 MG; Start 03/28/17 at 09:00 Ascorbic Acid (Vitamin C) 500 mg DAILY PO Last administered on 04/04/17 08:48 ; Admin Dose 500 MG; Start 03/28/17 at 09:00 Atorvastatin Calcium (Lipitor) 10 mg QHS PO Last administered on 04/04/17 20: 55; Admin Dose 10 MG; Start 03/27/17 at 21:00 Bisacodyl (Dulcolax) 10 mg DAILY PRN PO CONSTIPATION; Start 03/27/17 at 17:30 Eye Lubricant (Artificial Tears Oph) 2 drop Q6H PRN BOTH EYES DRY EYES; Start 03/27/17 at 17:30 Simethicone (Mylicon) 80 mg TID PRN PO DISTENSION/GAS/BLOATING Last administered on 04/02/17 16:34; Admin Dose 80 MG; Start 03/28/17 at 12:30 Ciprofloxacin (Cipro) 500 mg BID@06,18 PO Last administered on 04/05/17 05:59 ; Admin Dose 500 MG; Start 03/30/17 at 18:00; Stop 04/09/17 at 19:00 Assessment/Plan Additional Assessment/Plan Rehab- Lumbar radiculopathy with left foot drop, status post revision lumbar decompressive laminectomy. Continue treatment plan Acute pain syndrome-improved Recent left rotator cuff tear. Right rotator cuff tear. Hypertension. Glaucoma. Hyperlipidemia. Impaired hearing. SALVADOR GONZALEZ MD Apr 05, 2017 06:42
[2017-04-05 07:30] VITALS: BP 128/61; RESP 18
[2017-04-05] MEDS: FISH OIL 1,000 MG CAP PO SCH ×2 (09:10→20:41)
[2017-04-05] MEDS: ACETAMINOPHEN 325 MG TAB PO PRN (09:10)
[2017-04-05] MEDS: ASCORBIC ACID 500 MG TAB PO SCH (09:11)
[2017-04-05] MEDS: DOCUSATE SODIUM 100 MG CAP PO SCH ×2 (09:11→21:00)
[2017-04-05] MEDS: AMLODIPINE 5 MG TAB PO SCH (09:11)
[2017-04-05 14:00] VITALS: BP 132/67; RESP 18
--- NOTE | 2017-04-05 19:49 | PN ---
Date/Time of Note Date/Time of Note DATE: 04/05/17 TIME: 14:30 Late entry Assessment/Plan VTE Prophylaxis VTE Prophylaxis Intervention: ambulation Lines/Catheters IV Catheter Type (from Nrs): Saline Lock Central line still needed: No Urinary Cath still in place: No Assessment/Plan Problems: (1) Lumbar spinal stenosis Status: Chronic (2) Injury of right rotator cuff Status: Chronic Qualifiers: Encounter type: subsequent encounter Qualified Code: S46.001D - Injury of right rotator cuff, subsequent encounter (3) Injury of left rotator cuff Status: Chronic (4) Essential hypertension Status: Chronic (5) Foot drop, left Status: Acute (6) S/P lumbar laminectomy Onset Date: ~ 03/25/2017 Status: Acute Assessment/Plan Clinically stable Subjective 24 Hr Interval Summary Free Text/Dictation patient feels well Exam/Review of Systems Vital Signs Vitals Vital Signs Date Time Temp Pulse Resp B/P Pulse Ox O2 Delivery O2 Flow Rate FiO2 04/05/17 14:00 97.9 74 18 132/67 98 Intake and Output 04/04/17 04/04/17 04/05/17 15:00 23:00 07:00 Intake Total 300 ml 1600 ml Output Total 300 ml 1001 ml Balance 0 ml 599 ml Exam Constitutional: alert, oriented, well developed Neck: supple Respiratory: clear to auscultation Cardiovascular: regular rate and rhythm Musculoskeletal: other (left foot in brace) Medications Medications Current Medications Docusate Sodium (Colace) 100 mg BID PO Last administered on 04/05/17 09:11; Admin Dose 100 MG; Start 03/27/17 at 21:00 Senna (Senokot) 1 tab HS PO Last administered on 04/04/17 20:55; Admin Dose 1 TAB; Start 03/27/17 at 21:00 Magnesium Hydroxide (Milk Of Mag) 30 ml BID PRN PO CONSTIPATION Last administered on 04/04/17 06:51; Admin Dose 30 ML; Start 03/27/17 at 14:00 Lactulose (Enulose) 20 gm DAILY PRN PO CONSTIPATION; Start 03/27/17 at 14:00 Bisacodyl (Dulcolax Supp) 10 mg DAILY PRN [place] CONSTIPATION; Start 03/27/17 at 14:00 Acetaminophen (Tylenol Tab) 650 mg Q4H PRN PO PAIN Last administered on 09:10; Admin Dose 650 MG; Start 03/27/17 at 14:00 Acetaminophen/ Hydrocodone Bitart ([place] (5/325)) 1 tab Q4H PRN PO PAIN LEVEL 1 -5 Last administered on 04/02/17 16:34; Admin Dose 1 TAB; Start 03/27/17 at 16 :30 Phenol (Cepastat Lozenge) 1 lozenge PRN PRN [place] SORE THROAT; Start 03/27/17 at 16:30 Fish Oil (Fish Oil) 2,000 mg BID PO Last administered on 04/05/17 09:10; Admin Dose 2,000 MG; Start 03/27/17 at 21:00 Amlodipine Besylate (Norvasc) 5 mg DAILY PO Last administered on 04/05/17 09: 11; Admin Dose 5 MG; Start 03/28/17 at 09:00 Ascorbic Acid (Vitamin C) 500 mg DAILY PO Last administered on 04/05/17 09:11 ; Admin Dose 500 MG; Start 03/28/17 at 09:00 Atorvastatin Calcium (Lipitor) 10 mg QHS PO Last administered on 04/04/17 20: 55; Admin Dose 10 MG; Start 03/27/17 at 21:00 Bisacodyl (Dulcolax) 10 mg DAILY PRN PO CONSTIPATION; Start 03/27/17 at 17:30 Eye Lubricant (Artificial Tears Oph) 2 drop Q6H PRN BOTH EYES DRY EYES; Start 03/27/17 at 17:30 Simethicone (Mylicon) 80 mg TID PRN PO DISTENSION/GAS/BLOATING Last administered on 04/02/17 16:34; Admin Dose 80 MG; Start 03/28/17 at 12:30 Ciprofloxacin (Cipro) 500 mg BID@18 PO Last administered on 04/05/17 18:13 ; Admin Dose 500 MG; Start 03/30/17 at 18:00; Stop 04/09/17 at 19:00 LOGAN BAE MD Apr 05, 2017 19:49
[2017-04-05] MEDS: ATORVASTATIN 10 MG TAB PO SCH (20:41)
[2017-04-05 20:52] VITALS: BP 143/67; RESP 18
[2017-04-05] MEDS: SENNA TAB PO SCH (21:00)
[2017-04-06] MEDS: CIPROFLOXACIN 500 MG TAB PO SCH ×2 (06:27→17:26)
[2017-04-06 07:00] VITALS: BP 141/62; RESP 18
[2017-04-06] MEDS: FISH OIL 1,000 MG CAP PO SCH ×2 (08:55→20:17)
[2017-04-06] MEDS: AMLODIPINE 5 MG TAB PO SCH (08:55)
[2017-04-06] MEDS: ASCORBIC ACID 500 MG TAB PO SCH (08:55)
[2017-04-06] MEDS: DOCUSATE SODIUM 100 MG CAP PO SCH ×2 (08:56→20:17)
[2017-04-06 14:00] VITALS: BP 129/59; RESP 18
--- NOTE | 2017-04-06 17:15 | PN ---
Date/Time of Note Date/Time of Note DATE: 04/06/17 TIME: 17:13 Assessment/Plan VTE Prophylaxis VTE Prophylaxis Intervention: ambulation Lines/Catheters IV Catheter Type (from [facility] [place] Saline Lock Urinary Cath still in place: No Assessment/Plan Problems: (1) Lumbar spinal stenosis Status: Chronic (2) S/P lumbar laminectomy Onset Date: ~ 03/25/2017 Status: Acute Assessment/Plan Clinically stable Subjective 24 Hr Interval Summary Free Text/Dictation No new issues Exam/Review of Systems Vital Signs Vitals Vital Signs Date Time Temp Pulse Resp B/P Pulse Ox O2 Delivery O2 Flow Rate FiO2 04/06/17 14:00 98.1 86 18 129/59 99 Intake and Output 04/05/17 04/05/17 04/06/17 15:00 23:00 07:00 Intake Total 750 ml 680 ml 1050 ml Output Total 320 ml 300 ml Balance 750 ml 360 ml 750 ml Exam Constitutional: alert, oriented Neck: supple Respiratory: clear to auscultation Cardiovascular: regular rate and rhythm Gastrointestinal: soft Musculoskeletal: nl extremities to inspection Neurological: other (left foot drop) Medications Medications Current Medications Docusate Sodium (Colace) 100 mg BID PO Last administered on 04/05/17 09:11; Admin Dose 100 MG; Start 03/27/17 at 21:00 Senna (Senokot) 1 tab HS PO Last administered on 04/04/17 20:55; Admin Dose 1 TAB; Start 03/27/17 at 21:00 Magnesium Hydroxide (Milk Of Mag) 30 ml BID PRN PO CONSTIPATION Last administered on 04/04/17 06:51; Admin Dose 30 ML; Start 03/27/17 at 14:00 Lactulose (Enulose) 20 gm DAILY PRN PO CONSTIPATION; Start 03/27/17 at 14:00 Bisacodyl (Dulcolax Supp) 10 mg DAILY PRN [place] CONSTIPATION; Start 03/27/17 at 14:00 Acetaminophen (Tylenol Tab) 650 mg Q4H PRN PO PAIN Last administered on 09:10; Admin Dose 650 MG; Start 03/27/17 at 14:00 Acetaminophen/ Hydrocodone Bitart ([place] (5/325)) 1 tab Q4H PRN PO PAIN LEVEL 1 -5 Last administered on 04/02/17 16:34; Admin Dose 1 TAB; Start 03/27/17 at 16 :30 Phenol (Cepastat Lozenge) 1 lozenge PRN PRN [place] SORE THROAT; Start 03/27/17 at 16:30 Fish Oil (Fish Oil) 2,000 mg BID PO Last administered on 04/06/17 08:55; Admin Dose 2,000 MG; Start 03/27/17 at 21:00 Amlodipine Besylate (Norvasc) 5 mg DAILY PO Last administered on 04/06/17 08: 55; Admin Dose 5 MG; Start 03/28/17 at 09:00 Ascorbic Acid (Vitamin C) 500 mg DAILY PO Last administered on 04/06/17 08:55 ; Admin Dose 500 MG; Start 03/28/17 at 09:00 Atorvastatin Calcium (Lipitor) 10 mg QHS PO Last administered on 04/05/17 20: 41; Admin Dose 10 MG; Start 03/27/17 at 21:00 Bisacodyl (Dulcolax) 10 mg DAILY PRN PO CONSTIPATION; Start 03/27/17 at 17:30 Eye Lubricant (Artificial Tears Oph) 2 drop Q6H PRN BOTH EYES DRY EYES; Start 03/27/17 at 17:30 Simethicone (Mylicon) 80 mg TID PRN PO DISTENSION/GAS/BLOATING Last administered on 04/06/17 14:22; Admin Dose 80 MG; Start 03/28/17 at 12:30 Ciprofloxacin (Cipro) 500 mg BID@06,18 PO Last administered on 04/06/17 06:27 ; Admin Dose 500 MG; Start 03/30/17 at 18:00; Stop 04/09/17 at 19:00 LOGAN BAE MD Apr 06, 2017 17:15
[2017-04-06 20:00] VITALS: BP 136/68; RESP 18
[2017-04-06] MEDS: ATORVASTATIN 10 MG TAB PO SCH (20:17)
[2017-04-06] MEDS: ACETAMINOPHEN 325 MG TAB PO PRN (20:17)
[2017-04-06] MEDS: SENNA TAB PO SCH (20:18)
[2017-04-07 02:00] VITALS: BP 146/64; RESP 18
[2017-04-07] MEDS: CIPROFLOXACIN 500 MG TAB PO SCH ×2 (05:33→17:51)
[2017-04-07 07:00] VITALS: BP 140/65; RESP 18
[2017-04-07] MEDS: FISH OIL 1,000 MG CAP PO SCH ×2 (09:03→20:57)
[2017-04-07] MEDS: DOCUSATE SODIUM 100 MG CAP PO SCH ×2 (09:03→20:57)
[2017-04-07] MEDS: AMLODIPINE 5 MG TAB PO SCH (09:04)
[2017-04-07] MEDS: ASCORBIC ACID 500 MG TAB PO SCH (09:04)
--- NOTE | 2017-04-07 11:44 | CONS ---
Date/Time of Note Date/Time of Note DATE: 04/07/17 TIME: 11:44 Consult Date/Type/Reason Admit Date/Time Mar 27, 2017 at 12:20 Subjective Remains motivated Objective Vital Signs Date Time Temp Pulse Resp B/P Pulse Ox O2 Delivery O2 Flow Rate FiO2 04/07/17 07:00 98.2 66 18 140/65 97 Intake and Output 04/06/17 04/06/17 04/07/17 15:00 23:00 07:00 Intake Total 1600 ml 200 ml Output Total 1200 ml 950 ml Balance 400 ml -750 ml INTERDISCIPLINARY TEAM CONFERENCE BOWEL- Cont BLADDER-Cont SKIN- intact OT- DRESSING-min BATHING-min/mod TOILETING-min/mod PT- BED MOBILITY-sba TRANSFERS-sba/cga AMBULATION-cga/min 150 feet A/P- Interdisciplinary team conference held today. Please see interdisciplinary sheet. Working toward d.c. on 04/15 with post discharge follow up of physical therapy, occupational therapy. Results/Medications Medications Current Medications Docusate Sodium (Colace) 100 mg BID PO Last administered on 04/07/17 09:03; Admin Dose 100 MG; Start 03/27/17 at 21:00 Senna (Senokot) 1 tab HS PO Last administered on 04/06/17 20:18; Admin Dose 1 TAB; Start 03/27/17 at 21:00 Magnesium Hydroxide (Milk Of Mag) 30 ml BID PRN PO CONSTIPATION Last administered on 04/04/17 06:51; Admin Dose 30 ML; Start 03/27/17 at 14:00 Lactulose (Enulose) 20 gm DAILY PRN PO CONSTIPATION; Start 03/27/17 at 14:00 Bisacodyl (Dulcolax Supp) 10 mg DAILY PRN [place] CONSTIPATION; Start 03/27/17 at 14:00 Acetaminophen (Tylenol Tab) 650 mg Q4H PRN PO PAIN Last administered on 20:17; Admin Dose 650 MG; Start 03/27/17 at 14:00 Acetaminophen/ Hydrocodone Bitart ([place] (5/325)) 1 tab Q4H PRN PO PAIN LEVEL 1 -5 Last administered on 04/02/17 16:34; Admin Dose 1 TAB; Start 03/27/17 at 16 :30 Phenol (Cepastat Lozenge) 1 lozenge PRN PRN [place] SORE THROAT; Start 03/27/17 at 16:30 Fish Oil (Fish Oil) 2,000 mg BID PO Last administered on 04/07/17 09:03; Admin Dose 2,000 MG; Start 03/27/17 at 21:00 Amlodipine Besylate (Norvasc) 5 mg DAILY PO Last administered on 04/07/17 09: 04; Admin Dose 5 MG; Start 03/28/17 at 09:00 Ascorbic Acid (Vitamin C) 500 mg DAILY PO Last administered on 04/07/17 09:04 ; Admin Dose 500 MG; Start 03/28/17 at 09:00 Atorvastatin Calcium (Lipitor) 10 mg QHS PO Last administered on 04/06/17 20: 17; Admin Dose 10 MG; Start 03/27/17 at 21:00 Bisacodyl (Dulcolax) 10 mg DAILY PRN PO CONSTIPATION; Start 03/27/17 at 17:30 Eye Lubricant (Artificial Tears Oph) 2 drop Q6H PRN BOTH EYES DRY EYES; Start 03/27/17 at 17:30 Simethicone (Mylicon) 80 mg TID PRN PO DISTENSION/GAS/BLOATING Last administered on 04/06/17 14:22; Admin Dose 80 MG; Start 03/28/17 at 12:30 Ciprofloxacin (Cipro) 500 mg BID@,18 PO Last administered on 04/07/17 05:33 ; Admin Dose 500 MG; Start 03/30/17 at 18:00; Stop 04/09/17 at 19:00 SALVADOR GONZALEZ MD Apr 07, 2017 11:44
[2017-04-07 14:00] VITALS: BP 140/73; RESP 18
[2017-04-07 20:00] VITALS: BP 160/74; RESP 18
[2017-04-07] MEDS: SENNA TAB PO SCH (20:57)
[2017-04-07] MEDS: ATORVASTATIN 10 MG TAB PO SCH (20:57)
[2017-04-08 02:00] VITALS: BP 133/69; RESP 18
[2017-04-08] MEDS: CIPROFLOXACIN 500 MG TAB PO SCH ×2 (06:26→18:00)
[2017-04-08 07:30] VITALS: BP 127/60; RESP 20
[2017-04-08] MEDS: DOCUSATE SODIUM 100 MG CAP PO SCH ×2 (09:29→21:00)
[2017-04-08] MEDS: FISH OIL 1,000 MG CAP PO SCH ×2 (09:29→21:00)
[2017-04-08] MEDS: AMLODIPINE 5 MG TAB PO SCH (09:30)
[2017-04-08] MEDS: ASCORBIC ACID 500 MG TAB PO SCH (09:30)
--- NOTE | 2017-04-08 10:26 | CONS ---
Date/Time of Note Date/Time of Note DATE: 04/08/17 TIME: 10:26 Consult Date/Type/Reason Admit Date/Time Mar 27, 2017 at 12:20 Subjective Patient without complaints. DC planning reviewed, and patient agreeable with current plan Objective cga ambulation 150 feet [id number] Vital Signs Date Time Temp Pulse Resp B/P Pulse Ox O2 Delivery O2 Flow Rate FiO2 04/08/17 07:30 98.6 68 20 127/60 99 Intake and Output 04/07/17 04/07/17 04/08/17 15:00 23:00 07:00 Intake Total 1600 ml 350 ml Output Total 1000 ml 1550 ml Balance 600 ml -1200 ml Results/Medications Medications Current Medications Docusate Sodium (Colace) 100 mg BID PO Last administered on 04/08/17 09:29; Admin Dose 100 MG; Start 03/27/17 at 21:00 Senna (Senokot) 1 tab HS PO Last administered on 04/07/17 20:57; Admin Dose 1 TAB; Start 03/27/17 at 21:00 Magnesium Hydroxide (Milk Of Mag) 30 ml BID PRN PO CONSTIPATION Last administered on 04/04/17 06:51; Admin Dose 30 ML; Start 03/27/17 at 14:00 Lactulose (Enulose) 20 gm DAILY PRN PO CONSTIPATION; Start 03/27/17 at 14:00 Bisacodyl (Dulcolax Supp) 10 mg DAILY PRN [place] CONSTIPATION; Start 03/27/17 at 14:00 Acetaminophen (Tylenol Tab) 650 mg Q4H PRN PO PAIN Last administered on 20:17; Admin Dose 650 MG; Start 03/27/17 at 14:00 Acetaminophen/ Hydrocodone Bitart ([place] (5/325)) 1 tab Q4H PRN PO PAIN LEVEL 1 -5 Last administered on 04/02/17 16:34; Admin Dose 1 TAB; Start 03/27/17 at 16 :30 Phenol (Cepastat Lozenge) 1 lozenge PRN PRN [place] SORE THROAT; Start 03/27/17 at 16:30 Fish Oil (Fish Oil) 2,000 mg BID PO Last administered on 04/08/17 09:29; Admin Dose 2,000 MG; Start 03/27/17 at 21:00 Amlodipine Besylate (Norvasc) 5 mg DAILY PO Last administered on 04/08/17 09: 30; Admin Dose 5 MG; Start 03/28/17 at 09:00 Ascorbic Acid (Vitamin C) 500 mg DAILY PO Last administered on 04/08/17 09:30 ; Admin Dose 500 MG; Start 03/28/17 at 09:00 Atorvastatin Calcium (Lipitor) 10 mg QHS PO Last administered on 04/07/17 20: 57; Admin Dose 10 MG; Start 03/27/17 at 21:00 Bisacodyl (Dulcolax) 10 mg DAILY PRN PO CONSTIPATION; Start 03/27/17 at 17:30 Eye Lubricant (Artificial Tears Oph) 2 drop Q6H PRN BOTH EYES DRY EYES; Start 03/27/17 at 17:30 Simethicone (Mylicon) 80 mg TID PRN PO DISTENSION/GAS/BLOATING Last administered on 04/06/17 14:22; Admin Dose 80 MG; Start 03/28/17 at 12:30 Ciprofloxacin (Cipro) 500 mg BID@,18 PO Last administered on 04/08/17 06:26 ; Admin Dose 500 MG; Start 03/30/17 at 18:00; Stop 04/09/17 at 19:00 Assessment/Plan Additional Assessment/Plan Rehab- Lumbar radiculopathy with left foot drop, status post revision lumbar decompressive laminectomy. Continue rehab activities, patient continues to make steady gains. - ESBL UTI Acute pain syndrome-improved Recent left rotator cuff tear. Right rotator cuff tear. Hypertension. Glaucoma. Hyperlipidemia. Impaired hearing. SALVADOR GONZALEZ MD Apr 08, 2017 10:26
--- NOTE | 2017-04-08 12:59 | PN ---
Date/Time of Note Date/Time of Note DATE: 04/08/17 TIME: 12:57 Assessment/Plan Lines/Catheters IV Catheter Type (from Nrsg): Saline Lock Cain in Place (from Nrsg): No Assessment/Plan Assessment/Plan The patient has done well since his spinal surgery. He continues to have left leg weakness, unchanged. He reports shoulder pain for which he should follow- up with Dr. Ty as an outpatient at [facility]. May discharge from orthopedic standpoint when cleared by Dr. De Luna Subjective 24 Hr Interval Summary doing well Exam/Review of Systems Vital Signs Vitals Vital Signs Date Time Temp Pulse Resp B/P Pulse Ox O2 Delivery O2 Flow Rate FiO2 04/08/17 07:30 98.6 68 20 127/60 99 Intake and Output 04/07/17 04/07/17 04/08/17 15:00 23:00 07:00 Intake Total 1600 ml 350 ml Output Total 1000 ml 1550 ml Balance 600 ml -1200 ml Exam Free Text/Dictation Left shoulder strength improved. Right frozen shoulder. Left leg weakness unchanged TIFFANY RUIZ MD Apr 08, 2017 12:59
[2017-04-08 14:00] VITALS: BP 129/67; RESP 18
[2017-04-08 16:49] LABS: ADD UMIC YES; UR ASCORBIC ACID 40 mg/dL (NEGATIVE); UR BILIRUBIN (Dip) NEGATIVE (NEGATIVE); UR BLOOD (Dip) NEGATIVE (NEGATIVE); UR CLARITY CLEAR (CLEAR); UR COLOR YELLOW (YELLOW); UR GLUCOSE (Dip) NEGATIVE (NEGATIVE); UR KETONES (Dip) NEGATIVE (NEGATIVE); UR LEUKOCYTE ESTERASE (Dip) 1+ Leu/ul (NEGATIVE); UR NITRITE (Dip) NEGATIVE (NEGATIVE); UR RBC 2 /HPF (0-5); UR SPECIFIC GRAVITY (Dip) 1.021 (1.003-1.030); UR TOTAL PROTEIN (Dip) NEGATIVE (NEGATIVE); UR UROBILINOGEN (Dip) NEGATIVE (NEGATIVE)
[2017-04-08 20:00] VITALS: BP 148/72; RESP 18
[2017-04-08] MEDS: ATORVASTATIN 10 MG TAB PO SCH (20:52)
[2017-04-08] MEDS: SENNA TAB PO SCH (21:00)
[2017-04-09 02:00] VITALS: BP 146/67; RESP 18
[2017-04-09] MEDS: CIPROFLOXACIN 500 MG TAB PO SCH ×2 (06:49→18:54)
[2017-04-09 07:57] VITALS: BP 141/63; RESP 18
[2017-04-09] MEDS: FISH OIL 1,000 MG CAP PO SCH ×2 (09:05→21:18)
[2017-04-09] MEDS: DOCUSATE SODIUM 100 MG CAP PO SCH ×2 (09:05→21:18)
[2017-04-09] MEDS: AMLODIPINE 5 MG TAB PO SCH (09:06)
[2017-04-09] MEDS: ASCORBIC ACID 500 MG TAB PO SCH (09:06)
--- NOTE | 2017-04-09 12:22 | CONS ---
Date/Time of Note Date/Time of Note DATE: 04/09/17 TIME: 12:22 Consult Date/Type/Reason Admit Date/Time Mar 27, 2017 at 12:20 Objective sba 150 feet Vital Signs Date Time Temp Pulse Resp B/P Pulse Ox O2 Delivery O2 Flow Rate FiO2 04/09/17 07:57 98.0 66 18 141/63 97 Intake and Output 04/08/17 04/08/17 04/09/17 14:59 22:59 06:59 Intake Total 890 ml 250 ml Output Total 300 ml Balance 890 ml -50 ml Results/Medications Results 24 hrs Laboratory Tests Test 04/08/17 14:13 Urine Color YELLOW Urine Clarity CLEAR Urine pH 5.0 Urine Specific [place] 1.021 Urine Ketones NEGATIVE Urine Nitrite NEGATIVE Urine Bilirubin NEGATIVE Urine Urobilinogen NEGATIVE Urine Leukocyte Esterase 1+ H Urine Microscopic RBC 2 Urine Microscopic WBC 22 H Urine Hemoglobin NEGATIVE Urine Glucose NEGATIVE Urine Total Protein NEGATIVE Medications Current Medications Docusate Sodium (Colace) 100 mg BID PO Last administered on 04/09/17 09:05; Admin Dose 100 MG; Start 03/27/17 at 21:00 Senna (Senokot) 1 tab HS PO Last administered on 04/07/17 20:57; Admin Dose 1 TAB; Start 03/27/17 at 21:00 Magnesium Hydroxide (Milk Of Mag) 30 ml BID PRN PO CONSTIPATION Last administered on 04/04/17 06:51; Admin Dose 30 ML; Start 03/27/17 at 14:00 Lactulose (Enulose) 20 gm DAILY PRN PO CONSTIPATION; Start 03/27/17 at 14:00 Bisacodyl (Dulcolax Supp) 10 mg DAILY PRN [place] CONSTIPATION; Start 03/27/17 at 14:00 Acetaminophen (Tylenol Tab) 650 mg Q4H PRN PO PAIN Last administered on 20:17; Admin Dose 650 MG; Start 03/27/17 at 14:00 Acetaminophen/ Hydrocodone Bitart ([place] (5/325)) 1 tab Q4H PRN PO PAIN LEVEL 1 -5 Last administered on 04/02/17 16:34; Admin Dose 1 TAB; Start 03/27/17 at 16 :30 Phenol (Cepastat Lozenge) 1 lozenge PRN PRN [place] SORE THROAT; Start 03/27/17 at 16:30 Fish Oil (Fish Oil) 2,000 mg BID PO Last administered on 04/09/17 09:05; Admin Dose 2,000 MG; Start 03/27/17 at 21:00 Amlodipine Besylate (Norvasc) 5 mg DAILY PO Last administered on 04/09/17 09: 06; Admin Dose 5 MG; Start 03/28/17 at 09:00 Ascorbic Acid (Vitamin C) 500 mg DAILY PO Last administered on 04/09/17 09:06 ; Admin Dose 500 MG; Start 03/28/17 at 09:00 Atorvastatin Calcium (Lipitor) 10 mg QHS PO Last administered on 04/08/17 20: 52; Admin Dose 10 MG; Start 03/27/17 at 21:00 Bisacodyl (Dulcolax) 10 mg DAILY PRN PO CONSTIPATION; Start 03/27/17 at 17:30 Eye Lubricant (Artificial Tears Oph) 2 drop Q6H PRN BOTH EYES DRY EYES; Start 03/27/17 at 17:30 Simethicone (Mylicon) 80 mg TID PRN PO DISTENSION/GAS/BLOATING Last administered on 04/06/17 14:22; Admin Dose 80 MG; Start 03/28/17 at 12:30 Ciprofloxacin (Cipro) 500 mg BID@,18 PO Last administered on 04/09/17 06:49 ; Admin Dose 500 MG; Start 03/30/17 at 18:00; Stop 04/09/17 at 19:00 Assessment/Plan Additional Assessment/Plan Rehab- Lumbar radiculopathy with left foot drop, status post revision lumbar decompressive laminectomy. Continue treatment plan - ESBL UTI Acute pain syndrome-improved Recent left rotator cuff tear. Right rotator cuff tear. Hypertension. Glaucoma. Hyperlipidemia. Impaired hearing. SALVADOR GONZALEZ MD Apr 09, 2017 12:22
[2017-04-09 14:00] VITALS: BP 136/69; RESP 18
[2017-04-09 20:00] VITALS: BP 127/62; RESP 18
[2017-04-09] MEDS: SENNA TAB PO SCH (21:18)
[2017-04-09] MEDS: ATORVASTATIN 10 MG TAB PO SCH (21:19)
[2017-04-10 01:56] VITALS: BP 129/65; RESP 18
[2017-04-10 07:30] VITALS: BP 140/65; RESP 18
[2017-04-10] MEDS: DOCUSATE SODIUM 100 MG CAP PO SCH ×2 (08:31→20:15)
[2017-04-10] MEDS: FISH OIL 1,000 MG CAP PO SCH ×2 (08:31→20:15)
[2017-04-10] MEDS: ACETAMINOPHEN 325 MG TAB PO PRN ×2 (08:31→22:15)
[2017-04-10] MEDS: ASCORBIC ACID 500 MG TAB PO SCH (08:32)
[2017-04-10] MEDS: AMLODIPINE 5 MG TAB PO SCH (08:32)
--- NOTE | 2017-04-10 10:07 | CONS ---
Date/Time of Note Date/Time of Note DATE: 04/10/17 TIME: 10:06 Consult Date/Type/Reason Admit Date/Time Mar 27, 2017 at 12:20 Subjective Feeling better today Objective sba transfer sba ambulation 150 feet Vital Signs Date Time Temp Pulse Resp B/P Pulse Ox O2 Delivery O2 Flow Rate FiO2 04/10/17 07:30 98.1 65 18 140/65 96 Intake and Output 04/09/17 04/09/17 04/10/17 15:00 23:00 07:00 Intake Total 840 ml 380 ml Balance 840 ml 380 ml Results/Medications Medications Current Medications Docusate Sodium (Colace) 100 mg BID PO Last administered on 04/10/17 08:31; Admin Dose 100 MG; Start 03/27/17 at 21:00 Senna (Senokot) 1 tab HS PO Last administered on 04/09/17 21:18; Admin Dose 1 TAB; Start 03/27/17 at 21:00 Magnesium Hydroxide (Milk Of Mag) 30 ml BID PRN PO CONSTIPATION Last administered on 04/04/17 06:51; Admin Dose 30 ML; Start 03/27/17 at 14:00 Lactulose (Enulose) 20 gm DAILY PRN PO CONSTIPATION; Start 03/27/17 at 14:00 Bisacodyl (Dulcolax Supp) 10 mg DAILY PRN [place] CONSTIPATION; Start 03/27/17 at 14:00 Acetaminophen (Tylenol Tab) 650 mg Q4H PRN PO PAIN Last administered on 08:31; Admin Dose 650 MG; Start 03/27/17 at 14:00 Acetaminophen/ Hydrocodone Bitart ([place] (5/325)) 1 tab Q4H PRN PO PAIN LEVEL 1 -5 Last administered on 04/02/17 16:34; Admin Dose 1 TAB; Start 03/27/17 at 16 :30 Phenol (Cepastat Lozenge) 1 lozenge PRN PRN [place] SORE THROAT; Start 03/27/17 at 16:30 Fish Oil (Fish Oil) 2,000 mg BID PO Last administered on 04/10/17 08:31; Admin Dose 2,000 MG; Start 03/27/17 at 21:00 Amlodipine Besylate (Norvasc) 5 mg DAILY PO Last administered on 04/10/17 08: 32; Admin Dose 5 MG; Start 03/28/17 at 09:00 Ascorbic Acid (Vitamin C) 500 mg DAILY PO Last administered on 04/10/17 08:32 ; Admin Dose 500 MG; Start 03/28/17 at 09:00 Atorvastatin Calcium (Lipitor) 10 mg QHS PO Last administered on 04/09/17 21: 19; Admin Dose 10 MG; Start 03/27/17 at 21:00 Bisacodyl (Dulcolax) 10 mg DAILY PRN PO CONSTIPATION; Start 03/27/17 at 17:30 Eye Lubricant (Artificial Tears Oph) 2 drop Q6H PRN BOTH EYES DRY EYES; Start 03/27/17 at 17:30 Simethicone (Mylicon) 80 mg TID PRN PO DISTENSION/GAS/BLOATING Last administered on 04/06/17 14:22; Admin Dose 80 MG; Start 03/28/17 at 12:30 Assessment/Plan Additional Assessment/Plan Rehab- Lumbar radiculopathy with left foot drop, status post revision lumbar decompressive laminectomy. Continue rehab activities, overall good progress - repeat urine negative for ESBL Acute pain syndrome-improved Recent left rotator cuff tear. Right rotator cuff tear. Hypertension. Glaucoma. Hyperlipidemia. Impaired hearing. SALVADOR GONZALEZ MD Apr 10, 2017 10:07
--- NOTE | 2017-04-10 13:32 | PN ---
Date/Time of Note Date/Time of Note DATE: 04/10/17 TIME: 13:29 Assessment/Plan VTE Prophylaxis VTE Prophylaxis Intervention: ambulation (asa) Lines/Catheters IV Catheter Type (from Nrsg): Saline Lock Urinary Cath still in place: No Subjective 24 Hr Interval Summary Free Text/Dictation continues to make progress in rehab good rom left shoulder, less pain; the right shoulder remains frozen wearing afo, special shoes. working with pt, doing pretty well, despite foot drop, less leg pain, better quad strength vs ok uti resolved, off antibiotics now, no gu sx lungs clear, hr ok, no edeplan cont current aru program Neurologic: focal-weakness Exam/Review of Systems Vital Signs Vitals Vital Signs Date Time Temp Pulse Resp B/P Pulse Ox O2 Delivery O2 Flow Rate FiO2 04/10/17 07:30 98.1 65 18 140/65 96 Intake and Output 04/09/17 04/09/17 04/10/17 15:00 23:00 07:00 Intake Total 840 ml 380 ml Balance 840 ml 380 ml Medications Medications Current Medications Docusate Sodium (Colace) 100 mg BID PO Last administered on 04/10/17 08:31; Admin Dose 100 MG; Start 03/27/17 at 21:00 Senna (Senokot) 1 tab HS PO Last administered on 04/09/17 21:18; Admin Dose 1 TAB; Start 03/27/17 at 21:00 Magnesium Hydroxide (Milk Of Mag) 30 ml BID PRN PO CONSTIPATION Last administered on 04/04/17 06:51; Admin Dose 30 ML; Start 03/27/17 at 14:00 Lactulose (Enulose) 20 gm DAILY PRN PO CONSTIPATION; Start 03/27/17 at 14:00 Bisacodyl (Dulcolax Supp) 10 mg DAILY PRN [place] CONSTIPATION; Start 03/27/17 at 14:00 Acetaminophen (Tylenol Tab) 650 mg Q4H PRN PO PAIN Last administered on 08:31; Admin Dose 650 MG; Start 03/27/17 at 14:00 Acetaminophen/ Hydrocodone Bitart ([place] (5/325)) 1 tab Q4H PRN PO PAIN LEVEL 1 -5 Last administered on 04/02/17 16:34; Admin Dose 1 TAB; Start 03/27/17 at 16 :30 Phenol (Cepastat Lozenge) 1 lozenge PRN PRN [place] SORE THROAT; Start 03/27/17 at 16:30 Fish Oil (Fish Oil) 2,000 mg BID PO Last administered on 04/10/17 08:31; Admin Dose 2,000 MG; Start 03/27/17 at 21:00 Amlodipine Besylate (Norvasc) 5 mg DAILY PO Last administered on 04/10/17 08: 32; Admin Dose 5 MG; Start 03/28/17 at 09:00 Ascorbic Acid (Vitamin C) 500 mg DAILY PO Last administered on 04/10/17 08:32 ; Admin Dose 500 MG; Start 03/28/17 at 09:00 Atorvastatin Calcium (Lipitor) 10 mg QHS PO Last administered on 04/09/17 21: 19; Admin Dose 10 MG; Start 03/27/17 at 21:00 Bisacodyl (Dulcolax) 10 mg DAILY PRN PO CONSTIPATION; Start 03/27/17 at 17:30 Eye Lubricant (Artificial Tears Oph) 2 drop Q6H PRN BOTH EYES DRY EYES; Start 03/27/17 at 17:30 Simethicone (Mylicon) 80 mg TID PRN PO DISTENSION/GAS/BLOATING Last administered on 04/06/17 14:22; Admin Dose 80 MG; Start 03/28/17 at 12:30 EVERTON MCARTHUR MD Apr 10, 2017 13:32
[2017-04-10 14:00] VITALS: BP 137/64; RESP 20
[2017-04-10] MEDS: SENNA TAB PO SCH (20:15)
[2017-04-10] MEDS: ATORVASTATIN 10 MG TAB PO SCH (20:15)
[2017-04-10 20:33] VITALS: BP 118/65; RESP 18
[2017-04-11 02:00] VITALS: BP 124/67; RESP 18
[2017-04-11 07:30] VITALS: BP 134/68; RESP 18
[2017-04-11] MEDS: FISH OIL 1,000 MG CAP PO SCH ×2 (08:37→20:41)
[2017-04-11] MEDS: DOCUSATE SODIUM 100 MG CAP PO SCH ×2 (08:37→20:41)
[2017-04-11] MEDS: AMLODIPINE 5 MG TAB PO SCH (08:37)
[2017-04-11] MEDS: ASCORBIC ACID 500 MG TAB PO SCH (08:37)
--- NOTE | 2017-04-11 10:45 | CONS ---
Date/Time of Note Date/Time of Note DATE: 04/11/17 TIME: 10:44 Consult Date/Type/Reason Admit Date/Time Mar 27, 2017 at 12:20 Subjective Feeling better today Objective pulm-cta ambulating with PT Vital Signs Date Time Temp Pulse Resp B/P Pulse Ox O2 Delivery O2 Flow Rate FiO2 04/11/17 07:30 98.4 85 18 134/68 96 Intake and Output 04/10/17 04/10/17 04/11/17 15:00 23:00 07:00 Intake Total 680 ml 700 ml Balance 680 ml 700 ml Results/Medications Medications Current Medications Docusate Sodium (Colace) 100 mg BID PO Last administered on 04/11/17 08:37; Admin Dose 100 MG; Start 03/27/17 at 21:00 Senna (Senokot) 1 tab HS PO Last administered on 04/10/17 20:15; Admin Dose 1 TAB; Start 03/27/17 at 21:00 Magnesium Hydroxide (Milk Of Mag) 30 ml BID PRN PO CONSTIPATION Last administered on 04/04/17 06:51; Admin Dose 30 ML; Start 03/27/17 at 14:00 Lactulose (Enulose) 20 gm DAILY PRN PO CONSTIPATION; Start 03/27/17 at 14:00 Bisacodyl (Dulcolax Supp) 10 mg DAILY PRN [place] CONSTIPATION; Start 03/27/17 at 14:00 Acetaminophen (Tylenol Tab) 650 mg Q4H PRN PO PAIN Last administered on 22:15; Admin Dose 650 MG; Start 03/27/17 at 14:00 Acetaminophen/ Hydrocodone Bitart ([place] (5/325)) 1 tab Q4H PRN PO PAIN LEVEL 1 -5 Last administered on 04/02/17 16:34; Admin Dose 1 TAB; Start 03/27/17 at 16 :30 Phenol (Cepastat Lozenge) 1 lozenge PRN PRN [place] SORE THROAT; Start 03/27/17 at 16:30 Fish Oil (Fish Oil) 2,000 mg BID PO Last administered on 04/11/17 08:37; Admin Dose 2,000 MG; Start 03/27/17 at 21:00 Amlodipine Besylate (Norvasc) 5 mg DAILY PO Last administered on 04/11/17 08: 37; Admin Dose 5 MG; Start 03/28/17 at 09:00 Ascorbic Acid (Vitamin C) 500 mg DAILY PO Last administered on 04/11/17 08:37 ; Admin Dose 500 MG; Start 03/28/17 at 09:00 Atorvastatin Calcium (Lipitor) 10 mg QHS PO Last administered on 04/10/17 20: 15; Admin Dose 10 MG; Start 03/27/17 at 21:00 Bisacodyl (Dulcolax) 10 mg DAILY PRN PO CONSTIPATION; Start 03/27/17 at 17:30 Eye Lubricant (Artificial Tears Oph) 2 drop Q6H PRN BOTH EYES DRY EYES; Start 03/27/17 at 17:30 Simethicone (Mylicon) 80 mg TID PRN PO DISTENSION/GAS/BLOATING Last administered on 04/06/17 14:22; Admin Dose 80 MG; Start 03/28/17 at 12:30 Assessment/Plan Additional Assessment/Plan Rehab- Lumbar radiculopathy with left foot drop, status post revision lumbar decompressive laminectomy. Continue rehab program Recent left rotator cuff tear. Right rotator cuff tear. Hypertension. Glaucoma. Hyperlipidemia. Impaired hearing. SALVADOR GONZALEZ MD Apr 11, 2017 10:45
[2017-04-11 14:00] VITALS: BP 127/64; RESP 18
[2017-04-11] MEDS: ACETAMINOPHEN 325 MG TAB PO PRN (14:20)
--- NOTE | 2017-04-11 16:29 | PN ---
Date/Time of Note Date/Time of Note DATE: 04/11/17 TIME: 16:25 Assessment/Plan VTE Prophylaxis VTE Prophylaxis Intervention: ambulation Lines/Catheters IV Catheter Type (from Nrsg): Saline Lock Urinary Cath still in place: No Subjective 24 Hr Interval Summary Free Text/Dictation continues to do well, good recovery of left shoulder function, right still frozen has afo for left foot, ehl is working, gait ok with brace. plan for dc next week \ vs ok, exam otherwise ok continue with aru program fmla forms will be filed for ken who will be a home caregiver Neurologic: focal-weakness Exam/Review of Systems Vital Signs Vitals Vital Signs Date Time Temp Pulse Resp B/P Pulse Ox O2 Delivery O2 Flow Rate FiO2 04/11/17 14:00 97.9 85 18 127/64 93 Intake and Output 04/10/17 04/10/17 04/11/17 15:00 23:00 07:00 Intake Total 680 ml 700 ml Balance 680 ml 700 ml Medications Medications Current Medications Docusate Sodium (Colace) 100 mg BID PO Last administered on 04/11/17 08:37; Admin Dose 100 MG; Start 03/27/17 at 21:00 Senna (Senokot) 1 tab HS PO Last administered on 04/10/17 20:15; Admin Dose 1 TAB; Start 03/27/17 at 21:00 Magnesium Hydroxide (Milk Of Mag) 30 ml BID PRN PO CONSTIPATION Last administered on 04/04/17 06:51; Admin Dose 30 ML; Start 03/27/17 at 14:00 Lactulose (Enulose) 20 gm DAILY PRN PO CONSTIPATION; Start 03/27/17 at 14:00 Bisacodyl (Dulcolax Supp) 10 mg DAILY PRN [place] CONSTIPATION; Start 03/27/17 at 14:00 Acetaminophen (Tylenol Tab) 650 mg Q4H PRN PO PAIN Last administered on 14:20; Admin Dose 650 MG; Start 03/27/17 at 14:00 Acetaminophen/ Hydrocodone Bitart ([place] (5/325)) 1 tab Q4H PRN PO PAIN LEVEL 1 -5 Last administered on 04/02/17 16:34; Admin Dose 1 TAB; Start 03/27/17 at 16 :30 Phenol (Cepastat Lozenge) 1 lozenge PRN PRN [place] SORE THROAT; Start 03/27/17 at 16:30 Fish Oil (Fish Oil) 2,000 mg BID PO Last administered on 04/11/17 08:37; Admin Dose 2,000 MG; Start 03/27/17 at 21:00 Amlodipine Besylate (Norvasc) 5 mg DAILY PO Last administered on 04/11/17 08: 37; Admin Dose 5 MG; Start 03/28/17 at 09:00 Ascorbic Acid (Vitamin C) 500 mg DAILY PO Last administered on 04/11/17 08:37 ; Admin Dose 500 MG; Start 03/28/17 at 09:00 Atorvastatin Calcium (Lipitor) 10 mg QHS PO Last administered on 04/10/17 20: 15; Admin Dose 10 MG; Start 03/27/17 at 21:00 Bisacodyl (Dulcolax) 10 mg DAILY PRN PO CONSTIPATION; Start 03/27/17 at 17:30 Eye Lubricant (Artificial Tears Oph) 2 drop Q6H PRN BOTH EYES DRY EYES; Start 03/27/17 at 17:30 Simethicone (Mylicon) 80 mg TID PRN PO DISTENSION/GAS/BLOATING Last administered on 04/06/17 14:22; Admin Dose 80 MG; Start 03/28/17 at 12:30 EVERTON MCARTHUR MD Apr 11, 2017 16:29
[2017-04-11 20:00] VITALS: BP 139/67; RESP 18
[2017-04-11] MEDS: SENNA TAB PO SCH (20:41)
[2017-04-11] MEDS: ATORVASTATIN 10 MG TAB PO SCH (20:41)
[2017-04-12 02:00] VITALS: BP 132/65; RESP 18
[2017-04-12] MEDS: MAGNESIUM HYDROXIDE 30ML CUP PO PRN (06:35)
[2017-04-12 08:00] VITALS: BP 127/61; RESP 18
[2017-04-12] MEDS: FISH OIL 1,000 MG CAP PO SCH ×2 (08:36→21:00)
[2017-04-12] MEDS: AMLODIPINE 5 MG TAB PO SCH (08:36)
[2017-04-12] MEDS: ASCORBIC ACID 500 MG TAB PO SCH (08:36)
[2017-04-12] MEDS: DOCUSATE SODIUM 100 MG CAP PO SCH ×2 (08:38→21:01)
--- NOTE | 2017-04-12 10:51 | CONS ---
Date/Time of Note Date/Time of Note DATE: 04/12/17 TIME: 10:51 Consult Date/Type/Reason Admit Date/Time Mar 27, 2017 at 12:20 Subjective Doing well Objective pulm-cta SBA ambulation Vital Signs Date Time Temp Pulse Resp B/P Pulse Ox O2 Delivery O2 Flow Rate FiO2 04/12/17 08:00 97.7 82 18 127/61 98 Intake and Output 04/11/17 04/11/17 04/12/17 15:00 23:00 07:00 Intake Total 840 ml 750 ml Balance 840 ml 750 ml Results/Medications Medications Current Medications Docusate Sodium (Colace) 100 mg BID PO Last administered on 04/11/17 08:37; Admin Dose 100 MG; Start 03/27/17 at 21:00 Senna (Senokot) 1 tab HS PO Last administered on 04/10/17 20:15; Admin Dose 1 TAB; Start 03/27/17 at 21:00 Magnesium Hydroxide (Milk Of Mag) 30 ml BID PRN PO CONSTIPATION Last administered on 04/12/17 06:35; Admin Dose 30 ML; Start 03/27/17 at 14:00 Lactulose (Enulose) 20 gm DAILY PRN PO CONSTIPATION; Start 03/27/17 at 14:00 Bisacodyl (Dulcolax Supp) 10 mg DAILY PRN [place] CONSTIPATION; Start 03/27/17 at 14:00 Acetaminophen (Tylenol Tab) 650 mg Q4H PRN PO PAIN Last administered on 14:20; Admin Dose 650 MG; Start 03/27/17 at 14:00 Acetaminophen/ Hydrocodone Bitart ([place] (5/325)) 1 tab Q4H PRN PO PAIN LEVEL 1 -5 Last administered on 04/02/17 16:34; Admin Dose 1 TAB; Start 03/27/17 at 16 :30 Phenol (Cepastat Lozenge) 1 lozenge PRN PRN [place] SORE THROAT; Start 03/27/17 at 16:30 Fish Oil (Fish Oil) 2,000 mg BID PO Last administered on 04/12/17 08:36; Admin Dose 2,000 MG; Start 03/27/17 at 21:00 Amlodipine Besylate (Norvasc) 5 mg DAILY PO Last administered on 04/12/17 08: 36; Admin Dose 5 MG; Start 03/28/17 at 09:00 Ascorbic Acid (Vitamin C) 500 mg DAILY PO Last administered on 04/12/17 08:36 ; Admin Dose 500 MG; Start 03/28/17 at 09:00 Atorvastatin Calcium (Lipitor) 10 mg QHS PO Last administered on 04/11/17 20: 41; Admin Dose 10 MG; Start 03/27/17 at 21:00 Bisacodyl (Dulcolax) 10 mg DAILY PRN PO CONSTIPATION; Start 03/27/17 at 17:30 Eye Lubricant (Artificial Tears Oph) 2 drop Q6H PRN BOTH EYES DRY EYES; Start 03/27/17 at 17:30 Simethicone (Mylicon) 80 mg TID PRN PO DISTENSION/GAS/BLOATING Last administered on 04/06/17 14:22; Admin Dose 80 MG; Start 03/28/17 at 12:30 Assessment/Plan Additional Assessment/Plan Rehab- Lumbar radiculopathy with left foot drop, status post revision lumbar decompressive laminectomy. Continue rehab treatment plan. Caregiver training next week prior to discharge Recent left rotator cuff tear. Right rotator cuff tear. Hypertension. Glaucoma. Hyperlipidemia. Impaired hearing. SALVADOR GONZALEZ MD Apr 12, 2017 10:51
--- NOTE | 2017-04-12 11:09 | PN ---
Date/Time of Note Date/Time of Note DATE: 04/12/17 TIME: 11:07 Assessment/Plan VTE Prophylaxis VTE Prophylaxis Intervention: heparin Lines/Catheters IV Catheter Type (from [facility]): Saline Lock Urinary Cath still in place: No Assessment/Plan Problems: (1) S/P lumbar laminectomy Onset Date: ~ 03/25/2017 Status: Acute Comment: Progressing with physical therapy nicely. Plans for discharge early next week. He will be coming back to the hospital for his shoulder surgical repairs. (2) Injury of right rotator cuff Status: Chronic Comment: As above. Working his best Qualifiers: Encounter type: subsequent encounter Qualified Code: S46.001D - Injury of right rotator cuff, subsequent encounter (3) Injury of left rotator cuff Status: Chronic Comment: As above. (4) Essential hypertension Status: Chronic Comment: Good control (5) Hyperlipidemia Status: Chronic Comment: Stable on statin therapy Qualifiers: Hyperlipidemia type: pure hypercholesterolemia Qualified Code: E78.00 - Pure hypercholesterolemia (6) Moderate aortic stenosis by prior echocardiogram Onset Date: ~ 03/13/2017 Status: Chronic Comment: Noted. He has gone through surgery without complication Subjective 24 Hr Interval Summary Free Text/Dictation Patient remains actively under physical therapy and is in fact receiving physical therapy now. Working on transfers Constitutional: no complaints Respiratory: no complaints Cardiovascular: no complaints Gastrointestinal: no complaints Exam/Review of Systems Vital Signs Vitals Vital Signs Date Time Temp Pulse Resp B/P Pulse Ox O2 Delivery O2 Flow Rate FiO2 04/12/17 08:00 97.7 82 18 127/61 98 Intake and Output 04/11/17 04/11/17 04/12/17 15:00 23:00 07:00 Intake Total 840 ml 750 ml Balance 840 ml 750 ml Exam Constitutional: alert, oriented Neck: non-tender, supple Respiratory: clear to auscultation, normal air movement Extremities: other (Amended range of motion of the right shoulder) Medications Medications Current Medications Docusate Sodium (Colace) 100 mg BID PO Last administered on 04/11/17 08:37; Admin Dose 100 MG; Start 03/27/17 at 21:00 Senna (Senokot) 1 tab HS PO Last administered on 04/10/17 20:15; Admin Dose 1 TAB; Start 03/27/17 at 21:00 Magnesium Hydroxide (Milk Of Mag) 30 ml BID PRN PO CONSTIPATION Last administered on 04/12/17 06:35; Admin Dose 30 ML; Start 03/27/17 at 14:00 Lactulose (Enulose) 20 gm DAILY PRN PO CONSTIPATION; Start 03/27/17 at 14:00 Bisacodyl (Dulcolax Supp) 10 mg DAILY PRN [place] CONSTIPATION; Start 03/27/17 at 14:00 Acetaminophen (Tylenol Tab) 650 mg Q4H PRN PO PAIN Last administered on 14:20; Admin Dose 650 MG; Start 03/27/17 at 14:00 Acetaminophen/ Hydrocodone Bitart ([place] (5/325)) 1 tab Q4H PRN PO PAIN LEVEL 1 -5 Last administered on 04/02/17 16:34; Admin Dose 1 TAB; Start 03/27/17 at 16 :30 Phenol (Cepastat Lozenge) 1 lozenge PRN PRN [place] SORE THROAT; Start 03/27/17 at 16:30 Fish Oil (Fish Oil) 2,000 mg BID PO Last administered on 04/12/17 08:36; Admin Dose 2,000 MG; Start 03/27/17 at 21:00 Amlodipine Besylate (Norvasc) 5 mg DAILY PO Last administered on 04/12/17 08: 36; Admin Dose 5 MG; Start 03/28/17 at 09:00 Ascorbic Acid (Vitamin C) 500 mg DAILY PO Last administered on 04/12/17 08:36 ; Admin Dose 500 MG; Start 03/28/17 at 09:00 Atorvastatin Calcium (Lipitor) 10 mg QHS PO Last administered on 04/11/17 20: 41; Admin Dose 10 MG; Start 03/27/17 at 21:00 Bisacodyl (Dulcolax) 10 mg DAILY PRN PO CONSTIPATION; Start 03/27/17 at 17:30 Eye Lubricant (Artificial Tears Oph) 2 drop Q6H PRN BOTH EYES DRY EYES; Start 03/27/17 at 17:30 Simethicone (Mylicon) 80 mg TID PRN PO DISTENSION/GAS/BLOATING Last administered on 04/06/17 14:22; Admin Dose 80 MG; Start 03/28/17 at 12:30 JOSETTE LANCASTER MD Apr 12, 2017 11:09
[2017-04-12 20:00] VITALS: BP 144/65; PULSE 84; RESP 18
[2017-04-12] MEDS: ATORVASTATIN 10 MG TAB PO SCH (21:00)
[2017-04-12] MEDS: SENNA TAB PO SCH (21:01)
[2017-04-13 07:00] VITALS: BP 127/67; RESP 18
[2017-04-13] MEDS: AMLODIPINE 5 MG TAB PO SCH (08:04)
[2017-04-13] MEDS: FISH OIL 1,000 MG CAP PO SCH ×2 (08:04→20:35)
[2017-04-13] MEDS: DOCUSATE SODIUM 100 MG CAP PO SCH ×2 (08:04→20:35)
[2017-04-13] MEDS: ASCORBIC ACID 500 MG TAB PO SCH (08:04)
[2017-04-13 14:00] VITALS: BP 124/64; RESP 18
--- NOTE | 2017-04-13 14:13 | PN ---
Date/Time of Note Date/Time of Note DATE: 04/13/17 TIME: 14:12 Assessment/Plan VTE Prophylaxis VTE Prophylaxis Intervention: anti-embolic stocking Lines/Catheters IV Catheter Type (from [facility]): Saline Lock Urinary Cath still in place: No Assessment/Plan Problems: (1) S/P lumbar laminectomy Onset Date: ~ 03/25/2017 Status: Acute Comment: Recuperating nicely. In terms of how much recovery of the foot drop will get will take many months to see (2) Injury of right rotator cuff Status: Chronic Comment: This will be addressed on a return visit Qualifiers: Encounter type: subsequent encounter Qualified Code: S46.001D - Injury of right rotator cuff, subsequent encounter (3) Injury of left rotator cuff Status: Chronic Comment: This will be addressed in the future (4) Essential hypertension Status: Chronic Comment: Good control (5) Diastolic dysfunction Onset Date: ~ 03/13/2017 Status: Chronic Comment: Good control Subjective 24 Hr Interval Summary Free Text/Dictation Patient continues with physical therapy. Constitutional: no complaints Respiratory: no complaints Cardiovascular: no complaints Gastrointestinal: no complaints Musculoskeletal: other (Shoulder pain right greater than left) Exam/Review of Systems Vital Signs Vitals Vital Signs Date Time Temp Pulse Resp B/P Pulse Ox O2 Delivery O2 Flow Rate FiO2 04/13/17 07:00 97.7 65 18 127/67 94 04/12/17 20:00 Room Air Intake and Output 04/12/17 04/12/17 04/13/17 14:59 22:59 06:59 Intake Total 640 ml 500 ml Output Total 500 ml 750 ml Balance 140 ml -250 ml Exam Constitutional: alert, oriented Head: atraumatic, normocephalic Respiratory: clear to auscultation, normal air movement Gastrointestinal: nl liver, spleen, non-tender, soft Medications Medications Current Medications Docusate Sodium (Colace) 100 mg BID PO Last administered on 04/13/17 08:04; Admin Dose 100 MG; Start 03/27/17 at 21:00 Senna (Senokot) 1 tab HS PO Last administered on 04/12/17 21:01; Admin Dose 1 TAB; Start 03/27/17 at 21:00 Magnesium Hydroxide (Milk Of Mag) 30 ml BID PRN PO CONSTIPATION Last administered on 12/16/17at 06:35; Admin Dose 30 ML; Start 03/27/17 at 14:00 Lactulose (Enulose) 20 gm DAILY PRN PO CONSTIPATION; Start 03/27/17 at 14:00 Bisacodyl (Dulcolax Supp) 10 mg DAILY PRN [place] CONSTIPATION; Start 03/27/17 at 14:00 Acetaminophen (Tylenol Tab) 650 mg Q4H PRN PO PAIN Last administered on 14:20; Admin Dose 650 MG; Start 03/27/17 at 14:00 Acetaminophen/ Hydrocodone Bitart ([place] (5/325)) 1 tab Q4H PRN PO PAIN LEVEL 1 -5 Last administered on 04/02/17 16:34; Admin Dose 1 TAB; Start 03/27/17 at 16 :30 Phenol (Cepastat Lozenge) 1 lozenge PRN PRN [place] SORE THROAT; Start 03/27/17 at 16:30 Fish Oil (Fish Oil) 2,000 mg BID PO Last administered on 04/13/17 08:04; Admin Dose 2,000 MG; Start 03/27/17 at 21:00 Amlodipine Besylate (Norvasc) 5 mg DAILY PO Last administered on 04/13/17 08: 04; Admin Dose 5 MG; Start 03/28/17 at 09:00 Ascorbic Acid (Vitamin C) 500 mg DAILY PO Last administered on 04/13/17 08:04 ; Admin Dose 500 MG; Start 03/28/17 at 09:00 Atorvastatin Calcium (Lipitor) 10 mg QHS PO Last administered on 04/12/17 21: 00; Admin Dose 10 MG; Start 03/27/17 at 21:00 Bisacodyl (Dulcolax) 10 mg DAILY PRN PO CONSTIPATION; Start 03/27/17 at 17:30 Eye Lubricant (Artificial Tears Oph) 2 drop Q6H PRN BOTH EYES DRY EYES; Start 03/27/17 at 17:30 Simethicone (Mylicon) 80 mg TID PRN PO DISTENSION/GAS/BLOATING Last administered on 04/06/17 14:22; Admin Dose 80 MG; Start 03/28/17 at 12:30 JOSETTE LANCASTER MD Apr 13, 2017 14:13
[2017-04-13 20:00] VITALS: BP 136/69; PULSE 80; RESP 18
[2017-04-13] MEDS: ATORVASTATIN 10 MG TAB PO SCH (20:35)
[2017-04-13] MEDS: SENNA TAB PO SCH (20:35)
[2017-04-14] MEDS: ACETAMINOPHEN 325 MG TAB PO PRN (02:16)
[2017-04-14 02:23] VITALS: BP 148/73; PULSE 74; RESP 18
[2017-04-14 07:00] VITALS: BP 142/66; RESP 18
[2017-04-14] MEDS: DOCUSATE SODIUM 100 MG CAP PO SCH ×2 (08:33→21:00)
[2017-04-14] MEDS: FISH OIL 1,000 MG CAP PO SCH ×2 (08:34→20:19)
[2017-04-14] MEDS: ASCORBIC ACID 500 MG TAB PO SCH (08:35)
[2017-04-14] MEDS: AMLODIPINE 5 MG TAB PO SCH (08:35)
--- NOTE | 2017-04-14 11:45 | CONS ---
Date/Time of Note Date/Time of Note DATE: 04/14/17 TIME: 11:45 Consult Date/Type/Reason Admit Date/Time Mar 27, 2017 at 12:20 Objective Vital Signs Date Time Temp Pulse Resp B/P Pulse Ox O2 Delivery O2 Flow Rate FiO2 04/14/17 07:00 98.8 63 18 142/66 96 04/14/17 02:23 Room Air Intake and Output 04/13/17 04/13/17 04/14/17 15:00 23:00 07:00 Intake Total 1200 ml 500 ml Output Total 800 ml 500 ml Balance 400 ml 0 ml INTERDISCIPLINARY TEAM CONFERENCE BOWEL- Cont BLADDER-Cont SKIN- intact OT- DRESSING-min BATHING-min TOILETING-min PT- BED MOBILITY-s/sba TRANSFERS-s/sba AMBULATION-s/sba 200 feet [place]. MOBILITY-[place] A/P- Interdisciplinary team conference held today. Please see interdisciplinary sheet. Working toward d.c. on 04/15 with post discharge follow up of physical therapy, occupational therapy. Results/Medications Medications Current Medications Docusate Sodium (Colace) 100 mg BID PO Last administered on 04/14/17 08:33; Admin Dose 100 MG; Start 03/27/17 at 21:00 Senna (Senokot) 1 tab HS PO Last administered on 04/13/17 20:35; Admin Dose 1 TAB; Start 03/27/17 at 21:00 Magnesium Hydroxide (Milk Of Mag) 30 ml BID PRN PO CONSTIPATION Last administered on 04/12/17 06:35; Admin Dose 30 ML; Start 03/27/17 at 14:00 Lactulose (Enulose) 20 gm DAILY PRN PO CONSTIPATION; Start 03/27/17 at 14:00 Bisacodyl (Dulcolax Supp) 10 mg DAILY PRN [place] CONSTIPATION; Start 03/27/17 at 14:00 Acetaminophen (Tylenol Tab) 650 mg Q4H PRN PO PAIN Last administered on 02:16; Admin Dose 650 MG; Start 03/27/17 at 14:00 Acetaminophen/ Hydrocodone Bitart ([place] (5/325)) 1 tab Q4H PRN PO PAIN LEVEL 1 -5 Last administered on 04/02/17 16:34; Admin Dose 1 TAB; Start 03/27/17 at 16 :30 Phenol (Cepastat Lozenge) 1 lozenge PRN PRN [place] SORE THROAT; Start 03/27/17 at 16:30 Fish Oil (Fish Oil) 2,000 mg BID PO Last administered on 04/14/17 08:34; Admin Dose 2,000 MG; Start 03/27/17 at 21:00 Amlodipine Besylate (Norvasc) 5 mg DAILY PO Last administered on 04/14/17 08: 35; Admin Dose 5 MG; Start 03/28/17 at 09:00 Ascorbic Acid (Vitamin C) 500 mg DAILY PO Last administered on 04/14/17 08:35 ; Admin Dose 500 MG; Start 03/28/17 at 09:00 Atorvastatin Calcium (Lipitor) 10 mg QHS PO Last administered on 04/13/17 20: 35; Admin Dose 10 MG; Start 03/27/17 at 21:00 Bisacodyl (Dulcolax) 10 mg DAILY PRN PO CONSTIPATION; Start 03/27/17 at 17:30 Eye Lubricant (Artificial Tears Oph) 2 drop Q6H PRN BOTH EYES DRY EYES; Start 03/27/17 at 17:30 Simethicone (Mylicon) 80 mg TID PRN PO DISTENSION/GAS/BLOATING Last administered on 04/06/17 14:22; Admin Dose 80 MG; Start 03/28/17 at 12:30 SALVADOR GONZALEZ MD Apr 14, 2017 11:45 SALVADOR GONZALEZ MD Apr 14, 2017 11:45
[2017-04-14 14:00] VITALS: BP 127/63; RESP 18
--- NOTE | 2017-04-14 17:18 | PN ---
Date/Time of Note Date/Time of Note DATE: 04/14/17 TIME: 17:15 Assessment/Plan VTE Prophylaxis VTE Prophylaxis Intervention: ambulation Lines/Catheters IV Catheter Type (from Nrsg): Saline Lock Urinary Cath still in place: No Subjective 24 Hr Interval Summary Free Text/Dictation doing well, perhaps some toe flexion on the left planning for dc tomorrow. will see dr ansari after dc re the shoulder, tho right now the right is worse will follow as out patient. grandson/son russ will be caring for him at home, [employer] work filed Neurologic: focal-weakness Exam/Review of Systems Vital Signs Vitals Vital Signs Date Time Temp Pulse Resp B/P Pulse Ox O2 Delivery O2 Flow Rate FiO2 04/14/17 14:00 97.6 95 18 127/63 98 04/14/17 02:23 Room Air Intake and Output 04/13/17 04/13/17 04/14/17 15:00 23:00 07:00 Intake Total 1200 ml 500 ml Output Total 800 ml 500 ml Balance 400 ml 0 ml Medications Medications Current Medications Docusate Sodium (Colace) 100 mg BID PO Last administered on 04/14/17 08:33; Admin Dose 100 MG; Start 03/27/17 at 21:00 Senna (Senokot) 1 tab HS PO Last administered on 04/13/17 20:35; Admin Dose 1 TAB; Start 03/27/17 at 21:00 Magnesium Hydroxide (Milk Of Mag) 30 ml BID PRN PO CONSTIPATION Last administered on 04/12/17 06:35; Admin Dose 30 ML; Start 03/27/17 at 14:00 Lactulose (Enulose) 20 gm DAILY PRN PO CONSTIPATION; Start 03/27/17 at 14:00 Bisacodyl (Dulcolax Supp) [address] CONSTIPATION; Start 03/27/17 at 14:00 Acetaminophen (Tylenol Tab) 650 mg Q4H PRN PO PAIN Last administered on 02:16; Admin Dose 650 MG; Start 03/27/17 at 14:00 Acetaminophen/ Hydrocodone Bitart ([place] (5/325)) 1 tab Q4H PRN PO PAIN LEVEL 1 -5 Last administered on 04/02/17 16:34; Admin Dose 1 TAB; Start 03/27/17 at 16 :30 Phenol (Cepastat Lozenge) 1 lozenge PRN PRN MT SORE THROAT; Start 03/27/17 at 16:30 Fish Oil (Fish Oil) 2,000 mg BID PO Last administered on 04/14/17 08:34; Admin Dose 2,000 MG; Start 03/27/17 at 21:00 Amlodipine Besylate (Norvasc) 5 mg DAILY PO Last administered on 04/14/17 08: 35; Admin Dose 5 MG; Start 03/28/17 at 09:00 Ascorbic Acid (Vitamin C) 500 mg DAILY PO Last administered on 04/14/17 08:35 ; Admin Dose 500 MG; Start 03/28/17 at 09:00 Atorvastatin Calcium (Lipitor) 10 mg QHS PO Last administered on 04/13/17 20: 35; Admin Dose 10 MG; Start 03/27/17 at 21:00 Bisacodyl (Dulcolax) 10 mg DAILY PRN PO CONSTIPATION; Start 03/27/17 at 17:30 Eye Lubricant (Artificial Tears Oph) 2 drop Q6H PRN BOTH EYES DRY EYES; Start 03/27/17 at 17:30 Simethicone (Mylicon) 80 mg TID PRN PO DISTENSION/GAS/BLOATING Last administered on 04/06/17 14:22; Admin Dose 80 MG; Start 03/28/17 at 12:30 EVERTON MCARTHUR MD Apr 14, 2017 17:18
[2017-04-14 20:00] VITALS: BP 128/59; RESP 18
[2017-04-14] MEDS: ATORVASTATIN 10 MG TAB PO SCH (20:19)
[2017-04-14] MEDS: SENNA TAB PO SCH (21:00)
[2017-04-15 02:00] VITALS: BP 117/63; RESP 18
[2017-04-15 08:00] VITALS: BP 148/67; RESP 18
[2017-04-15] MEDS: FISH OIL 1,000 MG CAP PO SCH (08:35)
[2017-04-15] MEDS: DOCUSATE SODIUM 100 MG CAP PO SCH (08:35)
[2017-04-15] MEDS: ASCORBIC ACID 500 MG TAB PO SCH (08:36)
[2017-04-15] MEDS: AMLODIPINE 5 MG TAB PO SCH (08:36)
--- NOTE | 2017-04-15 11:17 | DS ---
Date/Time of Note Date/Time of Note DATE: 04/15/17 TIME: 11:17 Discharge Summary Admission/Discharge Info Admit Date/Time Mar 27, 2017 at 12:20 Discharge Date/Time Discharge Diagnosis 1. Lumbar radiculopathy and left foot drop status post revision lumbar decompression 2. Improved pain 3. Hypertension 4. History of prostate CA 5. Recent left rotator cuff tear in addition a history of right rotator cuff injury 6. Glaucoma 7. Hyperlipidemia 8. Improvements in self-care and mobility Patient Condition: Good Hospital Course Patient was admitted for comprehensive interdisciplinary acute rehab and made excellent functional gains during the course of the stay. Patient progressed from an initial maximal assist for self-care mobility and progressed to the point of minimal to standby assist for self-care activities and supervised standby assist to ambulate over 200 feet with the use of a front wheel walker. Patient's pain significantly improved during the course of hospitalization. Patient's family did receive caregiver training. Patient is being discharged home with the recommendation of home health physical therapy and Occupational Therapy follow-up the discharge medications are per the medication reconciliation sheet. 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 Discharge equipment recommendations include a front wheel walker, shower chair, and bedside commode Home Meds Reported Medications Mineral Oil (Fleet Mineral Oil Enema) 133 Ml Enema, 133 ML RC DAILY Y for CONSTIPATION, ENEMA 03/25/17 Bisacodyl* (Dulcolax*) 5 Mg Tablet.dr, 10 MG PO DAILY Y for CONSTIPATION, TAB 03/25/17 Acetaminophen* (Acetaminophen*) 325 Mg Tablet, 650 MG PO Q4H Y for PAIN AND OR ELEVATED TEMP, #30 TAB 03/25/17 Magnesium Hydroxide* (Milk Of Magnesia*) 400 Mg/5 Ml Oral.susp, 30 ML PO DAILY for CONSTIPATION, ML 03/25/17 Sennosides* (Senna Lax*) 8.6 Mg Tablet, 2 TAB PO DAILY Y for CONSTIPATION, TAB 03/25/17 [Artificial Tears] No Conflict Check, 2 DROP BOTH EYES Q6 Y for DRY EYES 03/25/17 Ascorbic Acid (Vitamin C) 500 Mg Tab, 500 MG PO DAILY, TAB 03/25/17 Amlodipine Besylate* (Norvasc*) 5 Mg Tablet, 5 MG PO DAILY for HTN, TAB 03/03/17 Tramadol Hcl* (Ultram*) 50 Mg Tablet, 50 MG PO Q6H Y for PAIN, TAB 03/03/17 Fish Oil/[place]-3 Fatty Acids (Fish Oil 1,000 Mg Capsule) 1 Cap Capsule 11/04/10 Multivitamins/Minerals (Centrum Silver) 1 Tab Tab 11/04/10 Atorvastatin (Lipitor) 10 Mg Tablet, 10 MG PO QHS 11/03/10 Primary Care Provider MD CARLOS Rodriguez LIVA L. MD Apr 15, 2017 11:17
== END 2017-04-15 14:30 | disposition home health service (06) | DRG 948 ==
LOC: VRC 12:20
PROVIDERS: ADMIT Physical Medicine & Rehabilitation; ATTEND Internal Medicine
DX: G89.18 Other acute postprocedural pain (principal); I11.0 Hypertensive heart disease with heart failure; I50.32 Chronic diastolic (congestive) heart failure; N39.0 Urinary tract infection, site not specified; I35.0 Nonrheumatic aortic (valve) stenosis; E78.5 Hyperlipidemia, unspecified; M21.372 Foot drop, left foot; X58.XXXD Exposure to other specified factors, subsequent encounter; M75.102 Unspecified rotator cuff tear or rupture of left shoulder, not specified as traumatic; M75.101 Unspecified rotator cuff tear or rupture of right shoulder, not specified as traumatic; H40.9 Unspecified glaucoma; H91.90 Unspecified hearing loss, unspecified ear; M48.061 Spinal stenosis, lumbar region without neurogenic claudication; S46.001D Unspecified injury of muscle(s) and tendon(s) of the rotator cuff of right shoulder, subsequent encounter; Z74.09 Other reduced mobility; Z98.890 Other specified postprocedural states
CPT/HCPCS: 80053; 81001; 85025; 87081; 87086; 97110; 97112; 97116; 97150; 97163; 97167; 97530; 97535; 97542; L1930; L2820

== ENCOUNTER 2017-05-08 06:53 | Inpatient (IN) | END 2017-05-09 12:13 | disposition home or self-care (01) | DRG 483 ==